=== PATIENT | female | born 1965 | race Caucasian/White ===

== ENCOUNTER 2022-08-29 05:23 | Inpatient (IN) | payer OTHER ==
--- OUTSIDE RECORDS SUMMARY | 2022-08-29 05:29 | XMS REPORT | Continuity of Care Document ---
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 of capsule 00:00: MOUTH [place] 00 THREE Medical TIMES A Branch DAY GABAPENTIN 2021-02 Yes [id number] TAKE ONE [facility] 300 mg 1-03 CAPSULE BY it[facility] of capsule 00:00: MOUTH [place] 00 THREE Medical TIMES A Branch DAY GABAPENTIN 2021-02 Yes [id number] TAKE ONE [facility] 300 mg 1-03 CAPSULE BY it[facility] of capsule 00:00: MOUTH [place] [address] THREE Medical TIMES A Branch DAY GABAPENTIN 2021-02 Yes [id number] TAKE ONE [facility] 300 mg 1-03 CAPSULE BY ity of capsule 00:00: MOUTH [place] [address] THREE Medical TIMES A Branch DAY GABAPENTIN 2021-02- No [id number] TAKE ONE [facility] 300 mg 1-03 01-03 CAPSULE BY [facility] of capsule 00:00: 00:00 MOUTH [place] 00 :00 THREE Medical TIMES A Branch DAY PRAVASTATIN 2021-02 Yes [id number] TAKE ONE [facility] 80 mg 0-19 TABLET BY it[facility] of tablet 00:00: MOUTH AT [address] PRAVASTATIN 2021-02 Yes [id number] TAKE ONE [facility] 80 mg 0-19 TABLET BY it[facility] of tablet 00:00: MOUTH AT [address] Branch PRAVASTATIN 2021-02 Yes [id number] TAKE ONE [facility] 80 mg 0-19 TABLET BY it[facility] of tablet 00:00: MOUTH AT [address] PRAVASTATIN 2021-02 Yes [id number] TAKE ONE [facility] 80 mg 0-19 TABLET BY ity of tablet 00:00: MOUTH AT [place] [facility] PRAVASTATIN 2021-02 Yes [id number] TAKE ONE [facility] 80 mg 0-19 TABLET BY it[facility] of tablet 00:00: MOUTH AT [address] PRAVASTATIN 2021-02 Yes [id number] TAKE ONE [facility] 80 mg 0-19 TABLET BY it[facility] of tablet 00:00: MOUTH AT [address] PRAVASTATIN 2021-023- No [id number] TAKE ONE [facility] 80 mg 0-19 01-17 TABLET BY ity of tablet 00:00: 00:00 MOUTH AT [place] 00 :00 [facility] Branch glimepiride 2021-0 Yes [id number] 4mg Take 1 [facility] 4 mg tablet 9-27 tablet by ity of 00:00: mouth in [place] [address] the Medical morning Branch and 1 tablet in the evening. glimepiride 2021-0 Yes [id number] 4mg Take 1 [facility] 4 mg tablet 9-27 tablet by ity of 00:00: mouth in [place] 00 the Medical morning Branch and 1 tablet in the evening. glimepiride 2-0 Yes [id number] 4mg Take 1 [facility] 4 mg tablet 9-27 tablet by ity of 00:00: mouth in [place] 00 the Medical morning Branch and 1 tablet in the evening. glimepiride 2-0 Yes [id number] 4mg Take 1 [facility] 4 mg tablet 9-27 tablet by ity of 00:00: mouth in [place] 00 the Medical morning Branch and 1 tablet in the evening. glimepiride 2021-0 Yes [id number] 4mg Take 1 [facility] 4 mg tablet 9-27 tablet by ity of 00:00: mouth in [place] 00 the Medical morning Branch and 1 tablet in the evening. glimepiride 2021-0 2022- No [id number] 4mg Take 1 [facility] 4 mg tablet 9-27 12-27 tablet by it y of 00:00: 00:00 mouth in [place] 00 :00 the Medical morning Branch and 1 tablet in the evening. GABAPENTIN 2021-0 Yes [id number] TAKE ONE [facility] 300 mg 9-07 CAPSULE BY ity of capsule 00:00: MOUTH [place] [address] THREE Medical TIMES A Branch DAY METHOCARBAM 2022-0 Yes [id number] TAKE ONE [facility] OL 500 mg 9-07 TABLET BY ity o f tablet 00:00: MOUTH [facility] TIMES A Medical DAY Branch NEEDED FOR PAIN LISINOPRIL 2021-0 Yes [id number] TAKE ONE [facility] 20 mg 9-07 TABLET BY ity of tablet 00:00: MOUTH [place] 00 DAILY Medical Branch LEVOTHYROXI 2022-0 Yes [id number] TAKE ONE [facility] NE 50 mcg 9-07 TABLET BY ity o f tablet 00:00: MOUTH [place] 00 EVERY Medical MORNING Branch GABAPENTIN 2022-0 Yes [id number] TAKE ONE [facility] 300 mg 9-07 CAPSULE BY ity of capsule 00:00: MOUTH [place] 00 THREE Medical TIMES A Branch DAY METHOCARBAM 2022-0 Yes [id number] TAKE ONE [facility] OL 500 mg 9-07 TABLET BY ity o f tablet 00:00: MOUTH FOUR [place] 00 TIMES A Medical DAY Branch NEEDED FOR PAIN LISINOPRIL 2022-0 Yes [id number] TAKE ONE [facility] 20 mg 9-07 TABLET BY ity of tablet 00:00: MOUTH [place] 00 DAILY Medical Branch LEVOTHYROXI 2022-0 Yes [id number] TAKE ONE [facility] NE 50 mcg 9-07 TABLET BY ity o f tablet 00:00: MOUTH [place] 00 EVERY Medical MORNING Branch GABAPENTIN 2022-0 Yes [id number] TAKE ONE [facility] 300 mg 9-07 CAPSULE BY ity of capsule 00:00: MOUTH [place] 00 THREE Medical TIMES A Branch DAY METHOCARBAM 2022-0 Yes [id number] TAKE ONE [facility] OL 500 mg 9-07 TABLET BY ity o f tablet 00:00: MOUTH [facility] TIMES A Medical DAY Branch NEEDED FOR PAIN LISINOPRIL 2022-0 Yes [id number] TAKE ONE [facility] 20 mg 9-07 TABLET BY ity of tablet 00:00: MOUTH [place] 00 DAILY Medical Branch LEVOTHYROXI 2022-0 Yes [id number] TAKE ONE [facility] NE 50 mcg 9-07 TABLET BY ity o f tablet 00:00: MOUTH [place] 00 EVERY Medical MORNING Branch GABAPENTIN 2022-0 Yes [id number] TAKE ONE [facility] 300 mg 9-07 CAPSULE BY ity of capsule 00:00: MOUTH [place] THREE Medical TIMES A Branch DAY METHOCARBAM 2022-0 Yes [id number] TAKE ONE [facility] OL 500 mg 9-07 TABLET BY ity o f tablet 00:00: MOUTH [facility] TIMES A Medical DAY Branch NEEDED FOR PAIN LISINOPRIL 2022-0 Yes [id number] TAKE ONE [facility] 20 mg 9-07 TABLET BY ity of tablet 00:00: MOUTH [place] 00 DAILY Medical Branch LEVOTHYROXI 2022-0 Yes [id number] TAKE ONE [facility] NE 50 mcg 9-07 TABLET BY ity o f tablet 00:00: MOUTH [place] 00 EVERY Medical MORNING Branch METHOCARBAM 2022-0 Yes [id number] TAKE ONE [facility] OL 500 mg 9-07 TABLET BY ity o f tablet 00:00: MOUTH [facility] TIMES A Medical DAY Branch NEEDED FOR PAIN LISINOPRIL 2022-0 Yes [id number] TAKE ONE [facility] 20 mg 9-07 TABLET BY ity of tablet 00:00: MOUTH [place] 00 DAILY Medical Branch LEVOTHYROXI 2022-0 Yes [id number] TAKE ONE [facility] NE 50 mcg 9-07 TABLET BY ity o f tablet 00:00: MOUTH [place] EVERY Medical MORNING Branch METHOCARBAM 2022-0 Yes [id number] TAKE ONE [facility] OL 500 mg 9-07 TABLET BY ity o f tablet 00:00: MOUTH [facility] 00 TIMES A Medical DAY Branch NEEDED FOR PAIN LISINOPRIL 2022-0 Yes [id number] TAKE ONE [facility] 20 mg 9-07 TABLET BY ity of tablet 00:00: MOUTH [place] 00 DAILY Medical Branch LEVOTHYROXI 2-0 Yes [id number] TAKE ONE [facility] NE 50 mcg 9-07 TABLET BY ity o f tablet 00:00: MOUTH [place] 00 EVERY Medical MORNING Branch METHOCARBAM 2022-0 Yes [id number] TAKE ONE [facility] OL 500 mg 9-07 TABLET BY ity o f tablet 00:00: MOUTH [facility] TIMES A Medical DAY Branch NEEDED FOR PAIN LISINOPRIL 2-0 Yes [id number] TAKE ONE [facility] 20 mg 9-07 TABLET BY ity of tablet 00:00: MOUTH [place] DAILY Medical Branch LEVOTHYROXI 2021-0 Yes [id number] TAKE ONE [facility] NE 50 mcg 9-07 TABLET BY ity o f tablet 00:00: MOUTH [place] EVERY Medical MORNING Branch METHOCARBAM 2022-0 Yes [id number] TAKE ONE [facility] OL 500 mg 9-07 TABLET BY ity o f tablet 00:00: MOUTH [facility] TIMES A Medical DAY Branch NEEDED FOR PAIN LISINOPRIL 2-0 Yes [id number] TAKE ONE [facility] 20 mg 9-07 TABLET BY ity of tablet 00:00: MOUTH [place] DAILY Medical Branch LEVOTHYROXI 2-0 Yes [id number] TAKE ONE [facility] NE 50 mcg 9-07 TABLET BY ity o f tablet 00:00: MOUTH [place] EVERY Medical MORNING Branch METHOCARBAM 2022-0 Yes [id number] TAKE ONE [facility] OL 500 mg 9-07 TABLET BY ity o f tablet 00:00: MOUTH [facility] TIMES A Medical DAY Branch NEEDED FOR PAIN LISINOPRIL 2-0 Yes [id number] TAKE ONE [facility] 20 mg 9-07 TABLET BY ity of tablet 00:00: MOUTH [place] 00 DAILY Medical Branch LEVOTHYROXI 2022-0 Yes [id number] TAKE ONE [facility] NE 50 mcg 9-07 TABLET BY ity o f tablet 00:00: MOUTH [place] EVERY Medical MORNING Branch LISINOPRIL 2022-0 Yes [id number] TAKE ONE [facility] 20 mg 9-07 TABLET BY ity of tablet 00:00: MOUTH [place] 00 DAILY Medical Branch LEVOTHYROXI 2022-0 Yes [id number] TAKE ONE [facility] NE 50 mcg 9-07 TABLET BY ity o f tablet 00:00: MOUTH [place] 00 EVERY Medical MORNING Branch LISINOPRIL 2021-0 Yes [id number] TAKE ONE [facility] 20 mg 9-07 TABLET BY ity of tablet 00:00: MOUTH [place] 00 DAILY Medical Branch LEVOTHYROXI 2021-0 Yes [id number] TAKE ONE [facility] NE 50 mcg 9-07 TABLET BY ity o f tablet 00:00: MOUTH [place] 00 EVERY Medical MORNING Branch LISINOPRIL 2021-0 2023- No [id number] TAKE ONE [facility] 20 mg -08 20- TABLET BY ity of tablet 00:00: 00:00 MOUTH [place] 00 :00 DAILY Medical Branch LEVOTHYROXI 2021-0 2022- No [id number] TAKE ONE [facility] NE 50 mcg 10-25- TABLET BY ity of tablet 00:00: 00:00 MOUTH [place] 00 :00 EVERY Medical MORNING Branch METHOCARBAM 2021-0 3- No [id number] TAKE ONE [facility] OL 500 mg 10-25- TABLET BY ity of tablet 00:00: 00:00 MOUTH [place] 00 :00 TIMES A Medical DAY Branch NEEDED FOR PAIN GABAPENTIN 2021-0 202- No [id number] TAKE ONE [facility] 300 mg -08 28- CAPSULE BY ity of capsule 00:00: 00:00 MOUTH [place] 00 :00 THREE Medical TIMES A Branch DAY GABAPENTIN 2021-0 Yes [id number] TAKE ONE [facility] 300 mg 6-17 CAPSULE BY ity of capsule 00:00: MOUTH [place] 00 THREE Medical TIMES A Branch DAY GABAPENTIN 2-0 Yes [id number] TAKE ONE [facility] 300 mg 6-17 CAPSULE BY ity of capsule 00:00: MOUTH [place] 00 THREE Medical TIMES A Branch DAY GABAPENTIN 2-0 2022- No [id number] TAKE ONE [facility] 300 mg 6-17 - CAPSULE BY ity of capsule 00:00: 00:00 MOUTH [place] 00 :00 THREE Medical TIMES A Branch DAY aspirin 81 2021-0 Yes [id number] 81mg Take 81 mg [facility] mg EC 5-19 by mouth ity of tablet 19:44: daily. [address] aspirin 81 2021-0 Yes [id number] 81mg Take 81 mg [facility] mg EC 5-19 by mouth ity of tablet 19:44: daily. [place] 16 Medical Branch aspirin 81 2021-0 Yes [id number] 81mg Take 81 mg [facility] mg EC 5-19 by mouth ity of tablet 19:44: daily. [address] aspirin 81 2021-0 Yes [id number] 81mg Take 81 mg [facility] mg EC 5-19 by mouth ity of tablet 19:44: daily. [address] aspirin 81 2021-0 Yes [id number] 81mg Take 81 mg [facility] mg EC 5-19 by mouth ity of tablet 19:44: daily. [address] aspirin 81 2021-0 Yes [id number] 81mg Take 81 mg [facility] mg EC 5-19 by mouth ity of tablet 19:44: daily. [address] aspirin 81 2021-0 Yes [id number] 81mg Take 81 mg [facility] mg EC 5-19 by mouth ity of tablet 19:44: daily. [address] aspirin 81 2021-0 Yes [id number] 81mg Take 81 mg [facility] mg EC 5-19 by mouth ity of tablet 19:44: daily. [address] aspirin 81 2021-0 Yes [id number] 81mg Take 81 mg [facility] mg EC 5-19 by mouth ity of tablet 19:44: daily. [address] aspirin 81 2021-0 Yes [id number] 81mg Take 81 mg [facility] mg EC 5-19 by mouth ity of tablet 19:44: daily. [address] aspirin 81 2021-0 Yes [id number] 81mg Take 81 mg [facility] mg EC 5-19 by mouth ity of tablet 19:44: daily. [address] aspirin 81 2021-0 Yes [id number] 81mg Take 81 mg [facility] mg EC 5-19 by mouth ity of tablet 19:44: daily. [address] aspirin 81 2021-0 Yes [id number] 81mg Take 81 mg [facility] mg EC 5-19 by mouth ity of tablet 19:44: daily. [address] aspirin 81 2021-0 Yes [id number] 81mg Take 81 mg [facility] mg EC 5-19 by mouth ity of tablet 19:44: daily. [address] aspirin 81 2021-0 Yes [id number] 81mg Take 81 mg [facility] mg EC 5-19 by mouth ity of tablet 19:44: daily. [address] aspirin 81 2021-0 Yes [id number] 81mg Take 81 mg [facility] mg EC 5-19 by mouth ity of tablet 19:44: daily. [address] aspirin 81 2-0 Yes [id number] 81mg Take 81 mg [facility] mg EC 5-19 by mouth ity of tablet 19:44: daily. [address] aspirin 81 2-0 Yes [id number] 81mg Take 81 mg [facility] mg EC 5-19 by mouth ity of tablet 19:44: daily. [address] aspirin 81 2021-0 Yes [id number] 81mg Take 81 mg [facility] mg EC 5-19 by mouth ity of tablet 19:44: daily. [address] aspirin 81 2021-0 Yes [id number] 81mg Take 81 mg [facility] mg EC 5-19 by mouth ity of tablet 19:44: daily. [address] aspirin 81 2-0 Yes [id number] 81mg Take 81 mg [facility] mg EC 5-19 by mouth ity of tablet 19:44: daily. [address] aspirin 81 2021-0 Yes [id number] 81mg Take 81 mg [facility] mg EC 5-19 by mouth ity of tablet 19:44: daily. [address] aspirin 81 2021-0 Yes [id number] 81mg Take 81 mg [facility] mg EC 5-19 by mouth ity of tablet 19:44: daily. [address] aspirin 81 2-0 Yes [id number] 81mg Take 81 mg [facility] mg EC 5-19 by mouth ity of tablet 19:44: daily. [address] hydroCHLORO 2-0 Yes [id number] 12.5mg Take 1 [facility] thiazide 5-19 capsule by ity o f 12.5 mg 00:00: mouth [place] capsule 00 daily. [facility] hydroCHLORO 2022-0 Yes [id number] 12.5mg Take 1 [facility] thiazide 5-19 capsule by ity o f 12.5 mg 00:00: mouth [place] capsule 00 daily. [facility] hydroCHLORO 2022-0 Yes [id number] 12.5mg Take 1 [facility] thiazide 5-19 capsule by ity o f 12.5 mg 00:00: mouth [place] capsule 00 daily. [facility] hydroCHLORO 2022-0 Yes [id number] 12.5mg Take 1 [facility] thiazide 5-19 capsule by ity o f 12.5 mg 00:00: mouth [place] capsule 00 daily. [facility] hydroCHLORO 2-0 Yes [id number] 12.5mg Take 1 [facility] thiazide 5-19 capsule by ity o f 12.5 mg 00:00: mouth [place] capsule 00 daily. Medical Branch hydroCHLORO 2-0 Yes [id number] 12.5mg Take 1 [facility] thiazide 5-19 capsule by ity o f 12.5 mg 00:00: mouth [place] capsule 00 daily. Medical Branch hydroCHLORO 2-0 Yes [id number] 12.5mg Take 1 [facility] thiazide 5-19 capsule by ity o f 12.5 mg 00:00: mouth [place] capsule 00 daily. Medical Branch hydroCHLORO 2-0 Yes [id number] 12.5mg Take 1 [facility] thiazide 5-19 capsule by ity o f 12.5 mg 00:00: mouth [place] capsule 00 daily. Medical Branch hydroCHLORO 2-0 Yes [id number] 12.5mg Take 1 [facility] thiazide 5-19 capsule by ity o f 12.5 mg 00:00: mouth [place] capsule 00 daily. Medical Branch hydroCHLORO 2-0 Yes [id number] 12.5mg Take 1 [facility] thiazide 5-19 capsule by ity o f 12.5 mg 00:00: mouth [place] capsule 00 daily. Medical Branch hydroCHLORO 2-0 Yes [id number] 12.5mg Take 1 [facility] thiazide 5-19 capsule by ity o f 12.5 mg 00:00: mouth [place] capsule 00 daily. Medical Branch hydroCHLORO 2-0 Yes [id number] 12.5mg Take 1 [facility] thiazide 5-19 capsule by ity o f 12.5 mg 00:00: mouth [place] capsule 00 daily. Medical Branch hydroCHLORO 2-0 Yes [id number] 12.5mg Take 1 [facility] thiazide 5-19 capsule by ity o f 12.5 mg 00:00: mouth [place] capsule 00 daily. Medical Branch hydroCHLORO 2-0 Yes [id number] 12.5mg Take 1 [facility] thiazide 5-19 capsule by ity o f 12.5 mg 00:00: mouth [place] capsule 00 daily. Medical Branch hydroCHLORO 2-0 Yes [id number] 12.5mg Take 1 [facility] thiazide 5-19 capsule by ity o f 12.5 mg 00:00: mouth [place] capsule 00 daily. Medical Branch hydroCHLORO 2-0 Yes [id number] 12.5mg Take 1 [facility] thiazide 5-19 capsule by ity o f 12.5 mg 00:00: mouth [place] capsule 00 daily. Medical Branch hydroCHLORO 2021-0 Yes [id number] 12.5mg Take 1 [facility] thiazide 5-19 capsule by ity o f 12.5 mg 00:00: mouth [place] capsule 00 daily. Medical Branch hydroCHLORO 2021-0 Yes [id number] 12.5mg Take 1 [facility] thiazide 5-19 capsule by ity o f 12.5 mg 00:00: mouth [place] capsule 00 daily. Medical Branch hydroCHLORO 2021-0 Yes [id number] 12.5mg Take 1 [facility] thiazide 5-19 capsule by ity o f 12.5 mg 00:00: mouth [place] capsule 00 daily. Medical Branch hydroCHLORO 2021-0 Yes [id number] 12.5mg Take 1 [facility] thiazide 5-19 capsule by ity o f 12.5 mg 00:00: mouth [place] capsule 00 daily. Medical Branch hydroCHLORO 2021-0 Yes [id number] 12.5mg Take 1 [facility] thiazide 5-19 capsule by ity o f 12.5 mg 00:00: mouth [place] capsule 00 daily. Medical Branch hydroCHLORO 2021-0 Yes [id number] 12.5mg Take 1 [facility] thiazide 5-19 capsule by ity o f 12.5 mg 00:00: mouth [place] capsule 00 daily. Medical Branch hydroCHLORO 2021-0 Yes [id number] 12.5mg Take 1 [facility] thiazide 5-19 capsule by ity o f 12.5 mg 00:00: mouth [place] capsule 00 daily. Medical Branch hydroCHLORO 2021-0 Yes [id number] 12.5mg Take 1 [facility] thiazide 5-19 capsule by ity o f 12.5 mg 00:00: mouth [place] capsule 00 daily. Medical Branch HYDROcodone Yes 4647 1{tbl} Take 1 Un [place] -acetaminop 5-11 tablet by ity of hen 10-325 00:00: mouth [place] mg tablet 00 every 6 Medical (six) Branch hours as needed for Pain (scale 7-10). Indication s: acute pain HYDROcodone Yes 4647 1{tbl} Take 1 [place] -acetaminop 5-11 tablet by ity of hen 10-325 00:00: mouth [place] mg tablet 00 every 6 Medical (six) Branch hours as needed for Pain (scale 7-10). Indication s: acute pain HYDROcodone 2022-0 Yes 4647 1{tbl} Take 1 [place] -acetaminop 5-11 tablet by ity of hen 10-325 00:00: mouth [place] mg tablet 00 every 6 Medical (six) Branch hours as needed for Pain (scale 7-10). Indication s: acute pain HYDROcodone 2022-0 Yes 4647 1{tbl} Take 1 [place] -acetaminop 5-11 tablet by ity of hen 10-325 00:00: mouth [place] mg tablet 00 every 6 Medical (six) Branch hours as needed for Pain (scale 7-10). Indication s: acute pain HYDROcodone 2022-0 Yes 4647 1{tbl} Take 1 [place] -acetaminop 5-11 tablet by ity of hen 10-325 00:00: mouth [place] mg tablet 00 every 6 Medical (six) Branch hours as needed for Pain (scale 7-10). Indication s: acute pain HYDROcodone 2-0 Yes 4647 1{tbl} Take 1 [place] -acetaminop 5-11 tablet by ity of hen 10-325 00:00: mouth [place] mg tablet 00 every 6 Medical (six) Branch hours as needed for Pain (scale 7-10). Indication s: acute pain HYDROcodone 2-0 Yes 4647 1{tbl} Take 1 [place] -acetaminop 5-11 tablet by ity of hen 10-325 00:00: mouth [place] mg tablet 00 every 6 Medical (six) Branch hours as needed for Pain (scale 7-10). Indication s: acute pain HYDROcodone 2022-0 Yes 4647 1{tbl} Take 1 [place] -acetaminop 5-11 tablet by ity of hen 10-325 00:00: mouth [place] mg tablet 00 every 6 Medical (six) Branch hours as needed for Pain (scale 7-10). Indication s: acute pain HYDROcodone 2022-0 Yes 4647 1{tbl} Take 1 [place] -acetaminop 5-11 tablet by ity of hen 10-325 00:00: mouth [place] mg tablet 00 every 6 Medical (six) Branch hours as needed for Pain (scale 7-10). Indication s: acute pain HYDROcodone 2022-0 Yes 4647 1{tbl} Take 1 [place] -acetaminop 5-11 tablet by ity of hen 10-325 00:00: mouth [place] mg tablet 00 every 6 Medical (six) Branch hours as needed for Pain (scale 7-10). Indication s: acute pain HYDROcodone 2022-0 Yes 4647 1{tbl} Take 1 [place] -acetaminop 5-11 tablet by ity of hen 10-325 00:00: mouth [place] mg tablet 00 every 6 Medical (six) Branch hours as needed for Pain (scale 7-10). Indication s: acute pain HYDROcodone 2-0 Yes 4647 1{tbl} Take 1 [place] -acetaminop 5-11 tablet by ity of hen 10-325 00:00: mouth [place] mg tablet 00 every 6 Medical (six) Branch hours as needed for Pain (scale 7-10). Indication s: acute pain HYDROcodone 2-0 Yes 4647 1{tbl} Take 1 [place] -acetaminop 5-11 tablet by ity of hen 10-325 00:00: mouth [place] mg tablet 00 every 6 Medical (six) Branch hours as needed for Pain (scale 7-10). Indication s: acute pain HYDROcodone 2-0 Yes 4647 1{tbl} Take 1 [place] -acetaminop 5-11 tablet by ity of hen 10-325 00:00: mouth [place] mg tablet 00 every 6 Medical (six) Branch hours as needed for Pain (scale 7-10). Indication s: acute pain HYDROcodone 2-0 Yes 4647 1{tbl} Take 1 [place] -acetaminop 5-11 tablet by ity of hen 10-325 00:00: mouth [place] mg tablet 00 every 6 Medical (six) Branch hours as needed for Pain (scale 7-10). Indication s: acute pain HYDROcodone 2-0 Yes 4647 1{tbl} Take 1 [place] -acetaminop 5-11 tablet by ity of hen 10-325 00:00: mouth [place] mg tablet 00 every 6 Medical (six) Branch hours as needed for Pain (scale 7-10). Indication s: acute pain HYDROcodone 2-0 Yes 4647 1{tbl} Take 1 [place] -acetaminop 5-11 tablet by ity of hen 10-325 00:00: mouth [place] mg tablet 00 every 6 Medical (six) Branch hours as needed for Pain (scale 7-10). Indication s: acute pain HYDROcodone 2022-0 Yes 4647 1{tbl} Take 1 [place] -acetaminop 5-11 tablet by ity of hen 10-325 00:00: mouth [place] mg tablet 00 every 6 Medical (six) Branch hours as needed for Pain (scale 7-10). Indication s: acute pain HYDROcodone 2022-0 Yes 4647 1{tbl} Take 1 [place] -acetaminop 5-11 tablet by ity of hen 10-325 00:00: mouth [place] mg tablet 00 every 6 Medical (six) Branch hours as needed for Pain (scale 7-10). Indication s: acute pain HYDROcodone 2-0 Yes 4647 1{tbl} Take 1 [place] -acetaminop 5-11 tablet by ity of hen 10-325 00:00: mouth [place] mg tablet 00 every 6 Medical (six) Branch hours as needed for Pain (scale 7-10). Indication s: acute pain HYDROcodone 2-0 Yes 4647 1{tbl} Take 1 [place] -acetaminop 5-11 tablet by ity of hen 10-325 00:00: mouth [place] mg tablet 00 every 6 Medical (six) Branch hours as needed for Pain (scale 7-10). Indication s: acute pain HYDROcodone 2-0 Yes 4647 1{tbl} Take 1 [place] -acetaminop 5-11 tablet by ity of hen 10-325 00:00: mouth [place] mg tablet 00 every 6 Medical (six) Branch hours as needed for Pain (scale 7-10). Indication s: acute pain HYDROcodone 2-0 Yes 4647 1{tbl} Take 1 [place] -acetaminop 5-11 tablet by ity of hen 10-325 00:00: mouth [place] mg tablet 00 every 6 Medical (six) Branch hours as needed for Pain (scale 7-10). Indication s: acute pain HYDROcodone 2-0 Yes 4647 1{tbl} Take 1 [place] -acetaminop 5-11 tablet by ity of hen 10-325 00:00: mouth [place] mg tablet 00 every 6 Medical (six) Branch hours as needed for Pain (scale 7-10). Indication s: acute pain METHOCARBAM 2021-0 Yes [id number] TAKE ONE [facility] OL 500 mg 4-25 TABLET BY ity o f tablet 00:00: MOUTH FOUR 00 TIMES A Medical DAY Branch NEEDED FOR PAIN METHOCARBAM 2021-0 Yes [id number] TAKE ONE [facility] OL 500 mg 4-25 TABLET BY ity o f tablet 00:00: MOUTH FOUR [place] 00 TIMES A Medical DAY Branch NEEDED FOR PAIN METHOCARBAM 2021-0 2022- No [id number] TAKE ONE [facility] OL 500 mg 4-25 09-07 TABLET BY ity of tablet 00:00: 00:[place]TH [place] :[place] TIMES A Medical DAY Branch NEEDED FOR PAIN ibuprofen 2021-0 Yes [id number] 600mg Take 1 [facility] 600 mg 4-16 tablet by ity of tablet 00:00: mouth 00 every 6 Medical (six) Branch hours as needed for Pain (scale 4-6). ibuprofen 2021-0 Yes [id number] 600mg Take 1 [facility] 600 mg 4-16 tablet by ity of tablet 00:00: mouth [place] 00 every 6 Medical (six) Branch hours as needed for Pain (scale 4-6). ibuprofen 2021-0 Yes [id number] 600mg Take 1 [facility] 600 mg 4-16 tablet by ity of tablet 00:00: mouth 00 every 6 Medical (six) Branch hours as needed for Pain (scale 4-6). ibuprofen 2021-0 Yes [id number] 600mg Take 1 [facility] 600 mg 4-16 tablet by ity of tablet 00:00: mouth [place] 00 every 6 Medical (six) Branch hours as needed for Pain (scale 4-6). ibuprofen 2021-0 Yes [id number] 600mg Take 1 [facility] 600 mg 4-16 tablet by ity of tablet 00:00: mouth [place] 00 every 6 Medical (six) Branch hours as needed for Pain (scale 4-6). ibuprofen 2021-0 Yes [id number] 600mg Take 1 [facility] 600 mg 4-16 tablet by ity of tablet 00:00: mouth [place] 00 every 6 Medical (six) Branch hours as needed for Pain (scale 4-6). ibuprofen 2021-0 Yes [id number] 600mg Take 1 [facility] 600 mg 4-16 tablet by ity of tablet 00:00: mouth [place] 00 every 6 Medical (six) Branch hours as needed for Pain (scale 4-6). ibuprofen 2022-0 Yes [id number] 600mg Take 1 [facility] 600 mg 4-16 tablet by ity of tablet 00:00: mouth [place] 00 every 6 Medical (six) Branch hours as needed for Pain (scale 4-6). ibuprofen 2022-0 Yes [id number] 600mg Take 1 [facility] 600 mg 4-16 tablet by ity of tablet 00:00: mouth [place] 00 every 6 Medical (six) Branch hours as needed for Pain (scale 4-6). ibuprofen 2022-0 Yes [id number] 600mg Take 1 [facility] 600 mg 4-16 tablet by ity of tablet 00:00: mouth [place] 00 every 6 Medical (six) Branch hours as needed for Pain (scale 4-6). ibuprofen 2022-0 Yes [id number] 600mg Take 1 [facility] 600 mg 4-16 tablet by ity of tablet 00:00: mouth [place] 00 every 6 Medical (six) Branch hours as needed for Pain (scale 4-6). ibuprofen 2022-0 Yes [id number] 600mg Take 1 [facility] 600 mg 4-16 tablet by ity of tablet 00:00: mouth [place] 00 every 6 Medical (six) Branch hours as needed for Pain (scale 4-6). ibuprofen 2022-0 Yes [id number] 600mg Take 1 [facility] 600 mg 4-16 tablet by ity of tablet 00:00: mouth [place] 00 every 6 Medical (six) Branch hours as needed for Pain (scale 4-6). ibuprofen 2022-0 Yes [id number] 600mg Take 1 [facility] 600 mg 4-16 tablet by ity of tablet 00:00: mouth [place] 00 every 6 Medical (six) Branch hours as needed for Pain (scale 4-6). ibuprofen 2022-0 Yes [id number] 600mg Take 1 [facility] 600 mg 4-16 tablet by ity of tablet 00:00: mouth [place] 00 every 6 Medical (six) Branch hours as needed for Pain (scale 4-6). ibuprofen 2022-0 Yes [id number] 600mg Take 1 [facility] 600 mg 4-16 tablet by [facility] tablet 00:00: mouth [place] 00 every 6 Medical (six) Branch hours as needed for Pain (scale 4-6). ibuprofen 2022-0 Yes [id number] 600mg Take 1 [facility] 600 mg 4-16 tablet by [facility] of tablet 00:00: mouth [place] 00 every 6 Medical (six) Branch hours as needed for Pain (scale 4-6). ibuprofen 2022-0 Yes [id number] 600mg Take 1 [facility] 600 mg 4-16 tablet by [facility] of tablet 00:00: mouth [place] 00 every 6 Medical (six) Branch hours as needed for Pain (scale 4-6). ibuprofen 2022-0 Yes [id number] 600mg Take 1 [facility] 600 mg 4-16 tablet by [facility] of tablet 00:00: mouth [place] 00 every 6 Medical (six) Branch hours as needed for Pain (scale 4-6). ibuprofen 2022-0 Yes [id number] 600mg Take 1 [facility] 600 mg 4-16 tablet by ity of tablet 00:00: mouth [place] 00 every 6 Medical (six) Branch hours as needed for Pain (scale 4-6). ibuprofen 2022-0 Yes [id number] 600mg Take 1 [facility] 600 mg 4-16 tablet by [facility] of tablet 00:00: mouth [place] 00 every 6 Medical (six) Branch hours as needed for Pain (scale 4-6). ibuprofen 2-0 Yes [id number] 600mg Take 1 [facility] 600 mg 4-16 tablet by [facility] of tablet 00:00: mouth [place] 00 every 6 Medical (six) Branch hours as needed for Pain (scale 4-6). ibuprofen 2022-0 Yes [id number] 600mg Take 1 [facility] 600 mg 4-16 tablet by it[facility] of tablet 00:00: mouth [place] 00 every 6 Medical (six) Branch hours as needed for Pain (scale 4-6). ibuprofen 2022-0 Yes [id number] 600mg Take 1 [facility] 600 mg 4-16 tablet by it[facility] of tablet 00:00: mouth [place] 00 every 6 Medical (six) Branch hours as needed for Pain (scale 4-6). methylPREDN 2022-0 Yes [id number] Take by [facility] ISolone 4-06 mouth ity of (MEDROL, 00:00: SEE-INSTRU [place]NNIE,) 4 mg 00 CTIONS. Medica l tablets follow Branch package directions methylPREDN 2022-0 Yes [id number] Take by [facility] ISolone 4-06 mouth ity of (MEDROL, 00:00: SEE-INSTRU [place],) 4 mg 00 CTIONS. Medica l tablets follow Branch package directions methylPREDN 2022-0 Yes [id number] Take by [facility] ISolone 4-06 mouth ity of (MEDROL, 00:00: SEE-INSTRU [place],) 4 mg 00 CTIONS. Medica l tablets follow Branch package directions methylPREDN 2022-0 Yes [id number] Take by [facility] ISolone 4-06 mouth ity of (MEDROL, 00:00: SEE-INSTRU [place],) 4 mg 00 CTIONS. Medica l tablets follow Branch package directions methylPREDN 2022-0 Yes [id number] Take by [facility] ISolone 4-06 mouth ity of (MEDROL, 00:00: SEE-INSTRU [place],) 4 mg 00 CTIONS. Medica l tablets follow Branch package directions methylPREDN 2022-0 Yes [id number] Take by [facility] ISolone 4-06 mouth ity of (MEDROL, 00:00: SEE-INSTRU [place],) 4 mg 00 CTIONS. Medica l tablets follow Branch package directions methylPREDN 2022-0 Yes [id number] Take by [facility] ISolone 4-06 mouth ity of (MEDROL, 00:00: SEE-INSTRU [place],) 4 mg 00 CTIONS. Medica l tablets follow Branch package directions methylPREDN 2022-0 Yes [id number] Take by [facility] ISolone 4-06 mouth ity of (MEDROL, 00:00: SEE-INSTRU [place],) 4 mg 00 CTIONS. Medica l tablets follow Branch package directions methylPREDN 2022-0 Yes [id number] Take by [facility] ISolone 4-06 mouth ity of (MEDROL, 00:00: SEE-INSTRU [place],) 4 mg 00 CTIONS. Medica l tablets follow Branch package directions methylPREDN 2022-0 Yes [id number] Take by [facility] ISolone 4-06 mouth ity of (MEDROL, 00:00: SEE-INSTRU [place],) 4 mg 00 CTIONS. Medica l tablets follow Branch package directions methylPREDN 2022-0 Yes [id number] Take by [facility] ISolone 4-06 mouth ity of (MEDROL, 00:00: SEE-INSTRU [place],) 4 mg 00 CTIONS. Medica l tablets follow Branch package directions methylPREDN 2022-0 Yes [id number] Take by [facility] ISolone -06 mouth ity of (MEDROL, 00:00: SEE-INSTRU [place],) 4 mg 00 CTIONS. Medica l tablets follow Branch package directions methylPREDN 2022-0 Yes [id number] Take by [facility] ISolone 4-06 mouth ity of (MEDROL, 00:00: SEE-INSTRU [place],) 4 mg 00 CTIONS. Medica l tablets follow Branch package directions methylPREDN 2022-0 Yes [id number] Take by [facility] ISolone 4-06 mouth ity of (MEDROL, 00:00: SEE-INSTRU [place],) 4 mg 00 CTIONS. Medica l tablets follow Branch package directions methylPREDN 2022-0 Yes [id number] Take by [facility] ISolone 4-06 mouth ity of (MEDROL, 00:00: SEE-INSTRU [place],) 4 mg 00 CTIONS. Medica l tablets follow Branch package directions methylPREDN 2022-0 Yes [id number] Take by [facility] ISolone 4-06 mouth ity of (MEDROL, 00:00: SEE-INSTRU [place],) 4 mg 00 CTIONS. Medica l tablets follow Branch package directions methylPREDN 2022-0 Yes [id number] Take by [facility] ISolone -06 mouth ity of (MEDROL, 00:00: SEE-INSTRU [place],) 4 mg 00 CTIONS. Medica l tablets follow Branch package directions methylPREDN 2022-0 Yes [id number] Take by [facility] ISolone 4-06 mouth ity of (MEDROL, 00:00: SEE-INSTRU [place],) 4 mg 00 CTIONS. Medica l tablets follow Branch package directions methylPREDN 2022-0 Yes [id number] Take by [facility] ISolone 4-06 mouth ity of (MEDROL, 00:00: SEE-INSTRU [place],) 4 mg 00 CTIONS. Medica l tablets follow Branch package directions methylPREDN 2022-0 Yes [id number] Take by [facility] ISolone 4-06 mouth ity of (MEDROL, 00:00: SEE-INSTRU [place],) 4 mg 00 CTIONS. Medica l tablets follow Branch package directions methylPREDN 2022-0 Yes [id number] Take by [facility] ISolone 4-06 mouth ity of (MEDROL, 00:00: SEE-INSTRU [place],) 4 mg 00 CTIONS. Medica l tablets follow Branch package directions methylPREDN 0 Yes [id number] Take by [facility] ISolone 4-06 mouth ity of (MEDROL, 00:00: SEE-INSTRU [place],) 4 mg 00 CTIONS. Medica l tablets follow Branch package directions methylPREDN 0 Yes [id number] Take by [facility] ISolone 4-06 mouth ity of (MEDROL, 00:00: SEE-INSTRU [place],) 4 mg 00 CTIONS. Medica l tablets follow Branch package directions methylPREDN Yes [id number] Take by [facility] ISolone 4-06 mouth ity of (MEDROL, 00:00: SEE-INSTRU [place],) 4 mg 00 CTIONS. Medica l tablets follow Branch package directions pravastatin Yes [id number] 80mg Take 1 [facility] 80 mg 2-14 tablet by ity of tablet 00:00: mouth at [place] 00 bedtime. Medical Branch metFORMIN Yes [id number] 1000mg Take 1 [facility] 1,000 mg 2-14 tablet by ity of tablet 00:00: mouth 2 00 (two) Medical times Branch daily. lisinopriL Yes [id number] 20mg Take 1 [facility] 20 mg 2-14 tablet by ity of tablet 00:00: mouth [place] 00 daily. Medical Branch levothyroxi Yes [id number] 50ug Take 1 [facility] ne 50 mcg 2-14 tablet by ity o f tablet 00:00: mouth [place] 00 every Medical morning. Branch glimepiride Yes [id number] 4mg Take 1 [facility] 4 mg tablet 2-14 tablet by ity of 00:00: mouth 2 [place] 00 (two) Medical times Branch daily. citalopram Yes [id number] 40mg Take 1 [facility] nivers 40 mg 2-14 tablet by ity of tablet 00:00: mouth [place] 00 daily. Medical Branch ALPRAZolam Yes [id number] TAKE ONE [facility] 1 mg tablet 2-14 TABLET BY ity of 00:00: MOUTH [place] 00 THREE Medical TIMES A Branch DAY NEEDED FOR ANXIETY amoxicillin 2022-0 Yes [id number] 1{tbl} Take 1 [facility] -clavulanat 2-14 tablet by ity of e 00:00: mouth 2 (AUGMENTIN) 00 (two) Medical 875-125 mg times Branch per tablet daily. pravastatin 0 Yes [id number] 80mg Take 1 [facility] 80 mg 2-14 tablet by ity of tablet 00:00: mouth at [place] 00 bedtime. Medical Branch metFORMIN Yes [id number] 1000mg Take 1 [facility] 1,000 mg 2-14 tablet by ity of tablet 00:00: mouth 2 [place] 00 (two) Medical times Branch daily. lisinopriL Yes [id number] 20mg Take 1 [facility] nivers 20 mg 2-14 tablet by ity of tablet 00:00: mouth [place] 00 daily. Medical Branch levothyroxi Yes [id number] 50ug Take 1 [facility] ne 50 mcg 2-14 tablet by ity o f tablet 00:00: mouth 00 every Medical morning. Branch glimepiride Yes [id number] 4mg Take 1 [facility] 4 mg tablet 2-14 tablet by ity of 00:00: mouth 2 (two) Medical times Branch daily. citalopram Yes [id number] 40mg Take 1 [facility] nivers 40 mg 2-14 tablet by ity of tablet 00:00: mouth [place] 00 daily. Medical Branch ALPRAZolam Yes [id number] TAKE ONE [facility] 1 mg tablet 2-14 TABLET BY ity of 00:00: MOUTH [place] 00 THREE Medical TIMES A Branch DAY NEEDED FOR ANXIETY amoxicillin 0 Yes [id number] 1{tbl} Take 1 [facility] -clavulanat 2-14 tablet by ity of e 00:00: mouth 2 [place] (AUGMENTIN) 00 (two) Medical 875-125 mg times Branch per tablet daily. pravastatin 0 Yes [id number] 80mg Take 1 [facility] 80 mg 2-14 tablet by ity of tablet 00:00: mouth at [place] 00 bedtime. Medical Branch metFORMIN 0 Yes [id number] 1000mg Take 1 [facility] 1,000 mg 2-14 tablet by ity of tablet 00:00: mouth 2 [place] 00 (two) Medical times Branch daily. glimepiride 0 Yes [id number] 4mg Take 1 [facility] 4 mg tablet 2-14 tablet by ity of 00:00: mouth 2 00 (two) Medical times Branch daily. citalopram 2021-0 Yes [id number] 40mg Take 1 [facility] nivers 40 mg 2-14 tablet by ity of tablet 00:00: mouth [place] 00 daily. Medical Branch ALPRAZolam 0 Yes [id number] TAKE ONE [facility] 1 mg tablet 2-14 TABLET BY ity of 00:00: MOUTH [place] 00 THREE Medical TIMES A Branch DAY NEEDED FOR ANXIETY amoxicillin 2021-0 Yes [id number] 1{tbl} Take 1 [facility] -clavulanat 2-14 tablet by ity of e 00:00: mouth 2 (AUGMENTIN) 00 (two) Medical 875-125 mg times Branch per tablet daily. pravastatin 2021-0 Yes [id number] 80mg Take 1 [facility] 80 mg 2-14 tablet by ity of tablet 00:00: mouth at [place] 00 bedtime. Medical Branch metFORMIN 0 Yes [id number] 1000mg Take 1 [facility] 1,000 mg 2-14 tablet by ity of tablet 00:00: mouth 2 (two) Medical times Branch daily. citalopram Yes [id number] 40mg Take 1 U nivers 40 mg 2-14 tablet by ity of tablet 00:00: mouth [place] 00 daily. Medical Branch ALPRAZolam 0 Yes [id number] TAKE ONE [facility] 1 mg tablet 2-14 TABLET BY ity of 00:00: MOUTH [place] 00 THREE Medical TIMES A Branch DAY NEEDED FOR ANXIETY amoxicillin 2021-0 Yes [id number] 1{tbl} Take 1 [facility] -clavulanat 2-14 tablet by ity of e 00:00: mouth 2 [place] (AUGMENTIN) 00 (two) Medical 875-125 mg times Branch per tablet daily. pravastatin 2021-0 Yes [id number] 80mg Take 1 [facility] 80 mg 2-14 tablet by ity of tablet 00:00: mouth at [place] 00 bedtime. Medical Branch metFORMIN 2021-0 Yes [id number] 1000mg Take 1 [facility] 1,000 mg 2-14 tablet by ity of tablet 00:00: mouth 2 00 (two) Medical times Branch daily. citalopram 2021-0 Yes [id number] 40mg Take 1 [facility] nivers 40 mg 2-14 tablet by ity of tablet 00:00: mouth [place] 00 daily. Medical Branch ALPRAZolam Yes [id number] TAKE ONE [facility] 1 mg tablet 2-14 TABLET BY ity of 00:00: MOUTH [place] 00 THREE Medical TIMES A Branch DAY NEEDED FOR ANXIETY amoxicillin Yes [id number] 1{tbl} Take 1 [facility] -clavulanat 2-14 tablet by ity of e 00:00: mouth 2 [place] (AUGMENTIN) 00 (two) Medical 875-125 mg times Branch per tablet daily. metFORMIN Yes [id number] 1000mg Take 1 [facility] 1,000 mg 2-14 tablet by ity of tablet 00:00: mouth 2 [place] 00 (two) Medical times Branch daily. citalopram Yes [id number] 40mg Take 1 [facility] nivers 40 mg 2-14 tablet by ity of tablet 00:00: mouth [place] 00 daily. Medical Branch ALPRAZolam Yes [id number] TAKE ONE [facility] 1 mg tablet 2-14 TABLET BY ity of 00:00: MOUTH [place] 00 THREE Medical TIMES A Branch DAY NEEDED FOR ANXIETY amoxicillin Yes [id number] 1{tbl} Take 1 [facility] -clavulanat 2-14 tablet by ity of e 00:00: mouth 2 (AUGMENTIN) 00 (two) Medical 875-125 mg times Branch per tablet daily. metFORMIN Yes [id number] 1000mg Take 1 [facility] 1,000 mg 2-14 tablet by ity of tablet 00:00: mouth 2 [place] 00 (two) Medical times Branch daily. citalopram Yes [id number] 40mg Take 1 [facility] nivers 40 mg 2-14 tablet by ity of tablet 00:00: mouth [place] 00 daily. Medical Branch ALPRAZolam Yes [id number] TAKE ONE [facility] 1 mg tablet 2-14 TABLET BY ity of 00:00: MOUTH [place] 00 THREE Medical TIMES A Branch DAY NEEDED FOR ANXIETY amoxicillin Yes [id number] 1{tbl} Take 1 [facility] -clavulanat 2-14 tablet by ity of e 00:00: mouth 2 [place] (AUGMENTIN) 00 (two) Medical 875-125 mg times Branch per tablet daily. citalopram Yes [id number] 40mg Take 1 U nivers 40 mg 2-14 tablet by ity of tablet 00:00: mouth [place] 00 daily. Medical Branch ALPRAZolam Yes [id number] TAKE ONE [facility] 1 mg tablet 2-14 TABLET BY ity of 00:00: MOUTH [place] 00 THREE Medical TIMES A Branch DAY NEEDED FOR ANXIETY amoxicillin Yes [id number] 1{tbl} Take 1 [facility] -clavulanat 2-14 tablet by ity of e 00:00: mouth 2 [place] (AUGMENTIN) 00 (two) Medical 875-125 mg times Branch per tablet daily. citalopram Yes [id number] 40mg Take 1 U nivers 40 mg 2-14 tablet by ity of tablet 00:00: mouth [place] 00 daily. Medical Branch ALPRAZolam Yes [id number] TAKE ONE [facility] 1 mg tablet 2-14 TABLET BY ity of 00:00: MOUTH [place] 00 THREE Medical TIMES A Branch DAY NEEDED FOR ANXIETY amoxicillin Yes [id number] 1{tbl} Take 1 [facility] -clavulanat 2-14 tablet by ity of e 00:00: mouth 2 [place] (AUGMENTIN) 00 (two) Medical 875-125 mg times Branch per tablet daily. citalopram Yes [id number] 40mg Take 1 U nivers 40 mg 2-14 tablet by ity of tablet 00:00: mouth [place] 00 daily. Medical Branch ALPRAZolam Yes [id number] TAKE ONE [facility] 1 mg tablet 2-14 TABLET BY ity of 00:00: MOUTH [place] 00 THREE Medical TIMES A Branch DAY NEEDED FOR ANXIETY amoxicillin Yes [id number] 1{tbl} Take 1 [facility] -clavulanat 2-14 tablet by ity of e 00:00: mouth 2 [place] (AUGMENTIN) 00 (two) Medical 875-125 mg times Branch per tablet daily. citalopram Yes [id number] 40mg Take 1 U nivers 40 mg 2-14 tablet by ity of tablet 00:00: mouth [place] 00 daily. Medical Branch ALPRAZolam Yes [id number] TAKE ONE [facility] 1 mg tablet 2-14 TABLET BY ity of 00:00: MOUTH [place] 00 THREE Medical TIMES A Branch DAY NEEDED FOR ANXIETY amoxicillin Yes [id number] 1{tbl} Take 1 [facility] -clavulanat 2-14 tablet by ity of e 00:00: mouth 2 [place] (AUGMENTIN) 00 (two) Medical 875-125 mg times Branch per tablet daily. citalopram Yes [id number] 40mg Take 1 U nivers 40 mg 2-14 tablet by ity of tablet 00:00: mouth [place] 00 daily. Medical Branch ALPRAZolam Yes [id number] TAKE ONE [facility] 1 mg tablet 2-14 TABLET BY ity of 00:00: MOUTH [place] 00 THREE Medical TIMES A Branch DAY NEEDED FOR ANXIETY amoxicillin Yes [id number] 1{tbl} Take 1 [facility] -clavulanat 2-14 tablet by ity of e 00:00: mouth 2 [place] (AUGMENTIN) 00 (two) Medical 875-125 mg times Branch per tablet daily. citalopram Yes [id number] 40mg Take 1 U nivers 40 mg 2-14 tablet by ity of tablet 00:00: mouth [place] 00 daily. Medical Branch ALPRAZolam Yes [id number] TAKE ONE [facility] 1 mg tablet 2-14 TABLET BY ity of 00:00: MOUTH [place] 00 THREE Medical TIMES A Branch DAY NEEDED FOR ANXIETY amoxicillin Yes [id number] 1{tbl} Take 1 [facility] -clavulanat 2-14 tablet by ity of e 00:00: mouth 2 [place] (AUGMENTIN) 00 (two) Medical 875-125 mg times Branch per tablet daily. citalopram Yes [id number] 40mg Take 1 U nivers 40 mg 2-14 tablet by ity of tablet 00:00: mouth [place] 00 daily. Medical Branch ALPRAZolam Yes [id number] TAKE ONE [facility] 1 mg tablet 2-14 TABLET BY ity of 00:00: MOUTH [place] 00 THREE Medical TIMES A Branch DAY NEEDED FOR ANXIETY amoxicillin 0 Yes [id number] 1{tbl} Take 1 [facility] -clavulanat 2-14 tablet by ity of e 00:00: mouth 2 [place] (AUGMENTIN) 00 (two) Medical 875-125 mg times Branch per tablet daily. citalopram Yes [id number] 40mg Take 1 U nivers 40 mg 2-14 tablet by ity of tablet 00:00: mouth [place] 00 daily. Medical Branch ALPRAZolam Yes [id number] TAKE ONE [facility] 1 mg tablet 2-14 TABLET BY ity of 00:00: MOUTH [place] 00 THREE Medical TIMES A Branch DAY NEEDED FOR ANXIETY amoxicillin Yes [id number] 1{tbl} Take 1 [facility] -clavulanat 2-14 tablet by ity of e 00:00: mouth 2 [place] (AUGMENTIN) 00 (two) Medical 875-125 mg times Branch per tablet daily. citalopram Yes [id number] 40mg Take 1 U nivers 40 mg 2-14 tablet by ity of tablet 00:00: mouth [place] 00 daily. Medical Branch ALPRAZolam Yes [id number] TAKE ONE [facility] 1 mg tablet 2-14 TABLET BY ity of 00:00: MOUTH [place] 00 THREE Medical TIMES A Branch DAY NEEDED FOR ANXIETY amoxicillin Yes [id number] 1{tbl} Take 1 [facility] -clavulanat 2-14 tablet by ity of e 00:00: mouth 2 [place] (AUGMENTIN) 00 (two) Medical 875-125 mg times Branch per tablet daily. citalopram Yes [id number] 40mg Take 1 U nivers 40 mg 2-14 tablet by ity of tablet 00:00: mouth [place] 00 daily. Medical Branch ALPRAZolam Yes [id number] TAKE ONE [facility] 1 mg tablet 2-14 TABLET BY ity of 00:00: MOUTH [place] 00 THREE Medical TIMES A Branch DAY NEEDED FOR ANXIETY amoxicillin Yes [id number] 1{tbl} Take 1 [facility] -clavulanat 2-14 tablet by ity of e 00:00: mouth 2 [place] (AUGMENTIN) 00 (two) Medical 875-125 mg times Branch per tablet daily. citalopram Yes [id number] 40mg Take 1 U nivers 40 mg 2-14 tablet by ity of tablet 00:00: mouth [place] 00 daily. Medical Branch ALPRAZolam Yes [id number] TAKE ONE [facility] 1 mg tablet 2-14 TABLET BY ity of 00:00: MOUTH [place] 00 THREE Medical TIMES A Branch DAY NEEDED FOR ANXIETY amoxicillin Yes [id number] 1{tbl} Take 1 [facility] -clavulanat 2-14 tablet by ity of e 00:00: mouth 2 [place] (AUGMENTIN) 00 (two) Medical 875-125 mg times Branch per tablet daily. citalopram Yes [id number] 40mg Take 1 U nivers 40 mg 2-14 tablet by ity of tablet 00:00: mouth [place] 00 daily. Medical Branch ALPRAZolam Yes [id number] TAKE ONE [facility] 1 mg tablet 2-14 TABLET BY ity of 00:00: MOUTH [place] 00 THREE Medical TIMES A Branch DAY NEEDED FOR ANXIETY amoxicillin Yes [id number] 1{tbl} Take 1 [facility] -clavulanat 2-14 tablet by ity of e 00:00: mouth 2 [place] (AUGMENTIN) 00 (two) Medical 875-125 mg times Branch per tablet daily. citalopram Yes [id number] 40mg Take 1 U nivers 40 mg 2-14 tablet by ity of tablet 00:00: mouth [place] 00 daily. Medical Branch ALPRAZolam Yes [id number] TAKE ONE [facility] 1 mg tablet 2-14 TABLET BY ity of 00:00: MOUTH [place] 00 THREE Medical TIMES A Branch DAY NEEDED FOR ANXIETY amoxicillin Yes [id number] 1{tbl} Take 1 [facility] -clavulanat 2-14 tablet by ity of e 00:00: mouth 2 [place] (AUGMENTIN) 00 (two) Medical 875-125 mg times Branch per tablet daily. citalopram Yes [id number] 40mg Take 1 U nivers 40 mg 2-14 tablet by ity of tablet 00:00: mouth [place] 00 daily. Medical Branch ALPRAZolam Yes [id number] TAKE ONE [facility] 1 mg tablet 2-14 TABLET BY ity of 00:00: MOUTH [place] 00 THREE Medical TIMES A Branch DAY NEEDED FOR ANXIETY amoxicillin Yes [id number] 1{tbl} Take 1 [facility] -clavulanat 2-14 tablet by ity of e 00:00: mouth 2 [place] (AUGMENTIN) 00 (two) Medical 875-125 mg times Branch per tablet daily. citalopram Yes [id number] 40mg Take 1 U nivers 40 mg 2-14 tablet by ity of tablet 00:00: mouth [place] 00 daily. Medical Branch ALPRAZolam Yes [id number] TAKE ONE [facility] 1 mg tablet 2-14 TABLET BY ity of 00:00: MOUTH [place] 00 THREE Medical TIMES A Branch DAY NEEDED FOR ANXIETY amoxicillin Yes [id number] 1{tbl} Take 1 [facility] -clavulanat 2-14 tablet by ity of e 00:00: mouth 2 [place] (AUGMENTIN) 00 (two) Medical 875-125 mg times Branch per tablet daily. citalopram Yes [id number] 40mg Take 1 [facility] nivers 40 mg 2-14 tablet by ity of tablet 00:00: mouth [place] 00 daily. Medical Branch ALPRAZolam Yes [id number] TAKE ONE [facility] 1 mg tablet 2-14 TABLET BY ity of 00:00: MOUTH [place] 00 THREE Medical TIMES A Branch DAY NEEDED FOR ANXIETY amoxicillin Yes [id number] 1{tbl} Take 1 [facility] -clavulanat 2-14 tablet by ity of e 00:00: mouth 2 [place] (AUGMENTIN) 00 (two) Medical 875-125 mg times Branch per tablet daily. ALPRAZolam Yes [id number] TAKE ONE [facility] 1 mg tablet 2-14 TABLET BY ity of 00:00: MOUTH [place] 00 THREE Medical TIMES A Branch DAY NEEDED FOR ANXIETY amoxicillin Yes [id number] 1{tbl} Take 1 [facility] -clavulanat 2-14 tablet by ity of e 00:00: mouth 2 [place] (AUGMENTIN) 00 (two) Medical 875-125 mg times Branch per tablet daily. citalopram 2022- No [id number] 40mg Take 1 [facility] 40 mg 2-14 - tablet by ity of tablet 00:00: 00:00 mouth [place] 00 :00 daily. Medical Branch metFORMIN 2021- No [id number] 1000mg Take 1 [facility] 1,000 mg 2-14 -09 tablet by ity o f tablet 00:00: 00:00 mouth 2 [place] 00 :00 (two) Medical times Branch daily. pravastatin 2021- No [id number] 80mg Take 1 [facility] 80 mg 2-14 10-19 tablet by ity of tablet 00:00: 00:00 mouth at [place] 00 :00 bedtime. Medical Branch glimepiride 2021- No [id number] 4mg Take 1 [facility] 4 mg tablet 04-03 tablet by it y of 00:00: 00:00 mouth 2 [place] 00 :00 (two) Medical times Branch daily. lisinopriL 2021- No [id number] 20mg Take 1 [facility] 20 mg 04-03 tablet by ity of tablet 00:00: 00:00 mouth [place] 00 :00 daily. Medical Branch levothyroxi 2021- No [id number] 50ug Take 1 [facility] ne 50 mcg 04-03 tablet by ity of tablet 00:00: 00:00 mouth [place] 00 :00 every Medical morning. Branch clotrimazol 2015- Yes Apply to [place] 2-05 area(s) 3 ity of (LOTRIMIN) 00:00: (three) [place] 1 % topical 00 times Medical cream daily. Branch clotrimazol 2015-0 Yes Apply to [place] 2-05 area(s) 3 ity of (LOTRIMIN) 00:00: (three) [place] 1 % topical 00 times Medical cream daily. Branch clotrimazol 2016-0 Yes Apply to [place] 2-05 area(s) 3 ity of (LOTRIMIN) 00:00: (three) [place] 1 % topical 00 times Medical cream daily. Branch clotrimazol 2016-0 Yes Apply to [place] 2-05 area(s) 3 ity of (LOTRIMIN) 00:00: (three) [place] 1 % topical 00 times Medical cream daily. Branch clotrimazol 2016-0 Yes Apply to [place] 2-05 area(s) 3 ity of (LOTRIMIN) 00:00: (three) [place] 1 % topical 00 times Medical cream daily. Branch clotrimazol 2016-0 Yes Apply to [place] 2-05 area(s) 3 ity of (LOTRIMIN) 00:00: (three) [place] 1 % topical 00 times Medical cream daily. Branch clotrimazol 2016-0 Yes Apply to [place] 2-05 area(s) 3 ity of (LOTRIMIN) 00:00: (three) [place] 1 % topical 00 times Medical cream daily. Branch clotrimazol 2016-0 Yes Apply to [place] 2-05 area(s) 3 ity of (LOTRIMIN) 00:00: (three) [place] 1 % topical 00 times Medical cream daily. Branch clotrimazol 2016-0 Yes Apply to [place] 2-05 area(s) 3 ity of (LOTRIMIN) 00:00: (three) [place] 1 % topical 00 times Medical cream daily. Branch clotrimazol 2016-0 Yes Apply to [place] 2-05 area(s) 3 ity of (LOTRIMIN) 00:00: (three) [place] 1 % topical 00 times Medical cream daily. Branch clotrimazol 2016-0 Yes Apply to [place] 2-05 area(s) 3 ity of (LOTRIMIN) 00:00: (three) [place] 1 % topical 00 times Medical cream daily. Branch clotrimazol 2016-0 Yes Apply to [place] 2-05 area(s) 3 ity of (LOTRIMIN) 00:00: (three) [place] 1 % topical 00 times Medical cream daily. Branch clotrimazol 2016-0 Yes Apply to [place] 2-05 area(s) 3 ity of (LOTRIMIN) 00:00: (three) [place] 1 % topical 00 times Medical cream daily. Branch clotrimazol 2016-0 Yes Apply to [place] 2-05 area(s) 3 ity of (LOTRIMIN) 00:00: (three) [place] 1 % topical 00 times Medical cream daily. Branch clotrimazol 2016-0 Yes Apply to [place] 2-05 area(s) 3 ity of (LOTRIMIN) 00:00: (three) [place] 1 % topical 00 times Medical cream daily. Branch clotrimazol 2016-0 Yes Apply to [place] 2-05 area(s) 3 ity of (LOTRIMIN) 00:00: (three) [place] 1 % topical 00 times Medical cream daily. Branch clotrimazol 2016-0 Yes Apply to [place] 2-05 area(s) 3 ity of (LOTRIMIN) 00:00: (three) [place] 1 % topical 00 times Medical cream daily. Branch clotrimazol 2016-0 Yes Apply to [place] 2-05 area(s) 3 ity of (LOTRIMIN) 00:00: (three) [place] 1 % topical 00 times Medical cream daily. Branch clotrimazol 2016-0 Yes Apply to [place] 2-05 area(s) 3 ity of (LOTRIMIN) 00:00: (three) [place] 1 % topical 00 times Medical cream daily. Branch clotrimazol 2016-0 Yes Apply to [place] 2-05 area(s) 3 ity of (LOTRIMIN) 00:00: (three) [place] 1 % topical 00 times Medical cream daily. Branch clotrimazol 2016-0 Yes Apply to [place] 2-05 area(s) 3 ity of (LOTRIMIN) 00:00: (three) [place] 1 % topical 00 times Medical cream daily. Branch clotrimazol 2016-0 Yes Apply to [place] 2-05 area(s) 3 ity of (LOTRIMIN) 00:00: (three) [place] 1 % topical 00 times Medical cream daily. Branch clotrimazol 2016-0 Yes Apply to [place] 2-05 area(s) 3 ity of (LOTRIMIN) 00:00: (three) [place] 1 % topical 00 times Medical cream daily. Branch clotrimazol 2016-0 Yes Apply to [place] 2-05 area(s) 3 ity of (LOTRIMIN) 00:00: (three) [place] 1 % topical 00 times Medical cream daily. Branch Vital Signs Vital Name Observation Time Observation Value Comments Source Systolic blood 2021-09-25 20:48:00 157 mm[Hg] Univer s[facility] Diastolic blood 2021-09-25 20:48:00 82 mm[Hg] [facility] Heart rate 2021-09-25 20:47:00 92 /min [facility] Body temperature 2021-09-25 20:47:00 37 Kelse[facility] Body height 2021-09-25 20:47:00 165.1 cm [facility] Body weight 2021-09-25 20:47:00 104.327 kg [facility] BMI 2021-09-25 20:47:00 38.27 kg/m2 [facility] Oxygen saturation in 2021-09-25 20:47:00 95 /min [facility] Arterial blood by [facility] Pulse oximetry Branch Procedures This patient has no known procedures. Encounters Start End Encounter Admission Attending Care Care Encounter Source Date/Time Date/Time Type Type Clinicians Facility Department ID 2022-08-09 2022-08-09 [facility] 1.2.840.114 [id number] Univers 00:00:00 00:00:00 [facility] 350.1.13.10 it y of [place] 4.2.7.2.686 Forrest as ELOINA?BLEA [id number] [address] MEDICAL OFFICE [facility] 2022-07-24 2022-07-24 [facility] 1.2.840.114 [id number] Univers 00:00:00 00:00:00 [facility] 350.1.13.10 it y of [place] 4.2.7.2.686 Forrest as ELOINA?BLEA [id number] [address] MEDICAL OFFICE [facility] 2022-07-22 2022-07-22 [facility] 1.2.840.114 [id number] Univers 00:00:00 00:00:00 [facility] 350.1.13.10 it y of [place] 4.2.7.2.686 Forrest as ELOINA?BLEA [id number] [address] MEDICAL OFFICE [facility] 2022-07-12 2022-07-12 Brock [facility] 1.2.840.114 [id number] Univers 00:00:00 00:00:00 [facility] HEALTH 350.1.13.10 it y of [place] 4.2.7.2.686 Forrest as ELOINA?BLEA [id number] Me dical KNEY [address] [place] [address] 2022-06-10 2022-06-10 [facility] 1.2.840.114 [id number] Univers 00:00:00 00:00:00 Marsha HEALTH 350.1.13.10 it y of [place] 4.2.7.2.686 Forrest as ELOINA?BLEA [id number] [place] quinton KITCHEN [address] [place] [address] 2022-06-08 2022-06-08 [facility] 1.2.840.114 [id number] Univers 00:00:00 00:00:00 Enoch HEALTH 350.1.13.10 it y of [place] 4.2.7.2.686 Forrest as ELOINA?BLEA [id number] [place] quinton KITCHEN [address] [place] [address] 2022-05-27 2022-05-27 [facility] 1.2.840.114 [id number] Univers 00:00:00 00:00:00 Marsha HEALTH 350.1.13.10 it y of [place] 4.2.7.2.686 Forrest as ELOINA?BLEA [id number] [place] quinton KITCHEN [address] [place] [address] 2022-05-20 2022-05-20 [facility] 1.2.840.114 [id number] Univers 00:00:00 00:00:00 Marsha HEALTH 350.1.13.10 it y of [place] 4.2.7.2.686 Forrest as ELOINA?BLEA [phone] [place] quinton KITCHEN [address] [place] [address] 2022-05-14 2022-05-14 [facility] 1.2.840.114 [id number] Univers 00:00:00 00:00:00 Enoch HEALTH 350.1.13.10 it y of [place] 4.2.7.2.686 Forrest as ELOINA?BLEA [phone] [place] quinton KITCHEN [address] [place] [address] 2022-04-24 2022-04-24 [facility] 1.2.840.114 [id number] Univers 00:00:00 00:00:00 Marsha HEALTH 350.1.13.10 it y of [place] 4.2.7.2.686 Forrest as ELOINA?BLEA [id number] [place] qu[place] MELENDRE[address] OFFICE [facility] 2022-04-20 2022-04-20 [facility] 1.2.840.114 [id number] Univers 00:00:00 00:00:00 [facility] 350.1.13.10 it y of [place] 4.2.7.2.686 Forrest as ELOINA?BLEA [id number] [address] OFFICE [facility] 2022-03-29 2022-03-29 [facility] 1.2.840.114 [id number] Univers 00:00:00 00:00:00 Marsha HEALTH 350.1.13.10 it y of [place] 4.2.7.2.686 Forrest as ELOINA?BLEA [id number] [address] 2022-03-03 2022-03-03 [facility] 1.2.840.114 [id number] Univers 00:00:00 00:00:00 [place] [facility]ALTH 350.1.13.10 it y of [place] 4.2.7.2.686 Forrest as ELOINA?BLEA [id number] [address] OFFICE [facility] 2022-02-20 2022-02-20 [facility] 1.2.840.114 [id number] Univers 00:00:00 00:00:00 [place] [facility] 350.1.13.10 it y of [place] 4.2.7.2.686 Forrest as ELOINA?BLEA [id number] [address] OFFICE [facility] 2022-02-19 2022-02-19 [facility] 1.2.463.237 [id number] Univers 00:00:00 00:00:00 [place] [facility] 350.1.13.10 it y of [place] 4.2.7.2.686 Forrest as ELOINA?BLEA [id number] [address] 2022-02-12 2022-02-12 [facility] 1.2.840.114 [id number] Univers 00:00:00 00:00:00 Marsha HEALTH 350.1.13.10 it y of [place] 4.2.7.2.686 Forrest as ELOINA?BLEA [id number] [place] MELENDREZ[address] OFFICE [facility] 2021-12-26 2021-12-26 [facility] 1.2.840.114 [id number] Univers 00:00:00 00:00:00 Marsha HEALTH 350.1.13.10 it y of [place] 4.2.7.2.686 Forrest as ELOINA?BLEA [id number] [place] MELENDREZ[address] OFFICE [facility] 2021-12-21 2021-12-21 [facility] 1.2.840.114 [id number] Univers 00:00:00 00:00:00 Marsha HEALTH 350.1.13.10 it y of [place] 4.2.7.2.686 Forrest as ELOINA?BLEA [id number] [address] OFFICE [facility] 2021-12-02 2021-12-02 [facility] 1.2.840.114 [id number] Univers 00:00:00 00:00:00 Marsha HEALTH 350.1.13.10 it y of [place] 4.2.7.2.686 Forrest as ELOINA?BLEA [id number] [address] OFFICE [facility] 2021-11-21 2021-11-21 [facility] 1.2.840.114 [id number] Univers 00:00:00 00:00:00 Marsha HEALTH 350.1.13.10 it y of [place] 4.2.7.2.686 Forrest as ELOINA?BLEA [id number] [address] OFFICE [facility] 2021-11-14 2021-11-14 [facility] 1.2.840.114 [id number] Univers 00:00:00 00:00:00 Marsha HEALTH 350.1.13.10 it y of [place] 4.2.7.2.686 Forrest as ELOINA?BLEA [id number] [facility] PARVIN[address] OFFICE BUILDING 2021-10-20 2021-10-20 Brock [facility] 1.2.840.114 [id number] Univers 00:00:00 00:00:00 [facility] 350.1.13.10 it y of [place] 4.2.7.2.686 Forrest as ELOINA?BLEA [id number] [address] OFFICE [facility] 2021-09-25 2021-09-25 Office [facility] 1.2.840.114 [id number] Univers 15:45:00 16:00:00 Visit [facility] 350.1.13.10 it y of [place]i [place] 4.2.7.2.686 Forrest as ELOINA?BLEA [id number] [address] OFFICE [facility] 2021-09-25 2021-09-25 Outpatient [facility] [id number] Univers 15:45:00 15:57:56 [facility] 2021-09-25 2021-09-25 Outpatient R [facility] [id number] Univers 15:45:00 15:45:00 [facility] 2021-08-03 2021-08-03 [facility] 1.2.840.114 [id number] Univers 00:00:00 00:00:00 [facility] 350.1.13.10 it y of [place] 4.2.7.2.686 Forrest as ELOINA?BLEA [id number] [address] OFFICE [facility] 2021-07-04 2021-07-06 Outpatient X [facility]LOS [facility] [id number] Univers 22:24:00 19:44:00 [facility] 2021-07-04 2021-07-06 Emergency Cedrick Devine 1.2.840. 114 [id number] Univers 22:24:00 19:44:00 Bryson Sanchez 350.1.13.10 ity of [place] Horowitz [facility] 4.2.7.2.68 6 [place] [id number] [address] 2021-07-05 2021-07-05 Outpatient [facility] [id number] Univers 10:15:00 10:15:00 MARSHA kilgore [facility] 2021-07-03 2021-07-03 Telephone [facility] 1.2.986.909 [id number] Univers 00:00:00 00:00:00 [facility] 350.1.13.10 it y of [place] 4.2.7.2.686 Forrest as ELOINA?BLEA [id number] [address] OFFICE [facility] 2021-06-27 2021-06-27 [facility] 1.2.840.114 [id number] Univers 00:00:00 00:00:00 Marsha HEALTH 350.1.13.10 it y of [place] 4.2.7.2.686 Forrest as ELOINA?BLEA [id number] [address] 2021-06-27 2021-06-27 Darlene [facility] 1.2.334.479 [id number] Univers 00:00:00 00:00:00 [facility] 350.1.13.10 it y of [place] 4.2.7.2.686 Forrest as ELOINA?BLEA [id number] [address] 2021-06-15 2021-06-15 [facility] 1.2.840.114 [id number] Univers 00:00:00 00:00:00 [place] [facility] 350.1.13.10 it y of [place] 4.2.7.2.686 Forrest as ELOINA?BLEA [id number] [address] 2021-06-10 2021-06-10 [facility] 1.2.840.114 [id number] Univers 00:00:00 00:00:00 Marsha HEALTH 350.1.13.10 it y of [place] 4.2.7.2.686 Forrest as ELOINA?BLEA [id number] [address] OFFICE [facility] 2021-06-06 2021-06-06 Darlene [facility] 1.2.429.380 [id number] Univers 00:00:00 00:00:00 [facility] 350.1.13.10 it y of [place] 4.2.7.2.686 Forrest as ELOINA?BLEA [id number] [place] MELENDREZ[address] OFFICE [facility] 2021-06-03 2021-06-03 Emergency X ERIKA, K RUST ERT [id number] Univers 09:48:00 13:39:00 ity [facility] 2021-06-03 2021-06-03 Emergency Erika, Cristina RUST 1.2.840.114 [id number] Univers 09:48:00 13:39:00 Anna SANDY 350.1.13.10 i ty of [place]2.7.2.[place] [id number] [address] 2021-05-31 2021-05-31 [facility]ill [facility] 1.2.840.114 [id number] Univers 00:00:00 00:00:00 [facility] 350.1.13.10 it y of [place] 4.2.7.2.686 Forrest as ELOINA?BLEA [id number] [place] MELENDREZ[address] OFFICE [facility] 2021-05-24 2021-05-24 Office [facility] 1.2.840.114 [id number] Univers 13:30:00 13:45:00 Visit [facility] 350.1.13.10 it y of [place] 4.2.7.2.686 Forrest as ELOINA?BLEA [id number] [address] OFFICE [facility] 2021-05-24 2021-05-24 Outpatient R JODY [facility] [id number] Univers 13:30:00 13:30:00 [facility] 2021-05-19 2021-05-19 Telephone [facility] 1.2.701.420 [id number] Univers 00:00:00 00:00:00 Marsha AUXIER 350.1.13.10 i ty of [facility] 4.2.7.2.[place] PROF[place] [id number] [address] 2021-04-03 2021-04-03 Office [facility] 1.2.840.114 [id number] Univers 14:00:00 14:15:00 Visit Marsha HEALTH 350.1.13.10 it y of [place] 4.2.7.2.686 Forrest as ELOINA?BLEA [id number] [address] MEDICAL OFFICE [facility] 2021-04-03 2021-04-03 Outpatient Demetris VERA [facility] [id number] Univers 14:00:00 14:00:00 MARSHA knoxjericho [facility] 2021-04-03 2021-04-03 Outpatient [facility] [id number] Univers 14:00:00 14:00:00 [facility] 2021-04-03 2021-04-03 Orders Doctor DARLENE 1.2.840.114 [id number] Univers 00:00:00 00:00:00 Only Unassigned, JERED 350.1.13.10 ity of [place] [facility] 4.2.7.2.686 Forrest as [id number] [address] 2021-03-31 2021-03-31 Patricia [facility] 1.2.840.114 [id number] Univers 00:00:00 00:00:00 (Out) Marsha HEALTH 350.1.13.10 it y of [place] 4.2.7.2.686 Forrest as ELOINA?BLEA [id number] [address] MEDICAL OFFICE [facility] 2021-03-21 2021-03-21 Brock [facility] 1.2.840.114 [id number] Univers 00:00:00 00:00:00 Marsha HEALTH 350.1.13.10 it y of [place] 4.2.7.2.686 Forrest as ELOINA?BLEA [id number] [address] OFFICE [facility] 2021-03-04 2021-03-04 Brock [facility] 1.2.840.114 [id number] Univers 00:00:00 00:00:00 Marsha HEALTH 350.1.13.10 it y of [place] 4.2.7.2.686 Forrest as PROFESSIO [phone] [address] OFFICE BUILDING ONE 2021-02-10 2021-02-10 Brock [facility] 1.2.840.114 [id number] Univers 00:00:00 00:00:00 Marsha HEALTH 350.1.13.10 it y of [place] 4.2.7.2.686 Forrest as PROFESSIO [id number] Va tonyal NAL [address] [place] [address] OFFICE [facility] ONE 2021-01-04 2021-01-04 Brock [facility] 1.2.840.114 [id number] Univers 00:00:00 00:00:00 Marsha HEALTH 350.1.13.10 it y of [place] 4.2.7.2.686 Forrest as PROFESSIO [phone] Va dical NAL [address] [place] [address] ONE 2020-12-29 2020-12-29 Brock [facility] 1.2.840.114 [id number] Univers 00:00:00 00:00:00 Marsha HEALTH 350.1.13.10 it y of [place] 4.2.7.2.686 Forrest as PROFESSIO [phone] Va dical NAL [address] [place] [address] OFFICE [facility] ONE 2020-12-10 2020-12-10 Brock [facility] 1.2.840.114 [id number] Univers 00:00:00 00:00:00 [facility] 350.1.13.10 it y of [place] 4.2.7.2.686 Forrest as Professio [id number] Va dical nal [address] [place] [address] [facility] One 2020-11-25 2020-11-25 Brock [facility] 1.2.840.114 [id number] Univers 00:00:00 00:00:00 [facility] 350.1.13.10 it y of [place] 4.2.7.2.686 Forrest as Professio [phone] Va dical nal [address] [place] [address] [facility] One 2020-10-06 2020-10-06 Brock Vera, RUST 1.2.840.114 [id number] Univers 00:00:00 00:00:00 [facility] 350.1.13.10 it y of [place] 4.2.7.2.686 [place] as Professio [id number] [address] Office [facility] One 2020-09-02 2020-09-02 Reftaty [facility] 1.2.840.114 [id number] Univers 00:00:00 00:00:00 [facility] 350.1.13.10 it y of [place] 4.2.7.2.686 [place] as Professio [id number] [address] Office [facility] One 2020-08-16 2020-08-16 Eder You 1.2.840.114 [id number] Univers 00:00:00 00:00:00 Management Kalpana Waldeny 350.1.13.10 ity of [place]2.7.2.[place] [id number] [address] 2020-08-06 2020-08-06 Reftaty [facility] 1.2.840.114 [id number] Univers 00:00:00 00:00:00 [facility] 350.1.13.10 it y of [place] 4.2.7.2.686 Forrest as Professio [phone] [address] One 2020-07-04 2020-07-04 Reftaty [facility] 1.2.840.114 [id number] Univers 00:00:00 00:00:00 [facility] 350.1.13.10 it y of [place] 4.2.7.2.686 Forrest as Professio [id number] [address] Office [facility] One 2020-06-08 2020-06-08 Office [facility] 1.2.840.114 [id number] Univers 13:42:24 13:57:24 Visit [facility] 350.1.13.10 it y of [place] 4.2.7.2.686 Forrest as Professio [phone] [facility] nal [address] [place] [address] [address] [facility] One 2020-06-08 2020-06-08 Outpatient R JODY [facility] [id number] Univers 13:45:00 13:45:00 MARSHA kilgore [facility] 2020-06-02 2020-06-02 Outpatient R JODY [facility] [id number] Univers 14:15:00 14:15:00 MARSHA jame [facility] 2020-06-02 2020-06-02 Telephone Jody RUST 1.2.597.557 [id number] Univers 00:00:00 00:00:00 [facility] 350.1.13.10 it y of [place] 4.2.7.2.686 Forrest as Professio [phone] Va dical nal [address] [place] Office Building One 2020-05-24 2020-05-24 Reftaty [facility] 1.2.840.114 [id number] Univers 00:00:00 00:00:00 [facility] 350.1.13.10 it y of [place] 4.2.7.2.686 Forrest as Professio [id number] Va dical nal [address] [place] Office [facility] One 2020-05-20 2020-05-20 Reftaty Manduj[facility]ers[facility] 1.2.840.114 [id number] Univers 00:00:00 00:00:00 [facility] 350.1.13.10 it y of [place] 4.2.7.2.686 Forrest as Professio [id number] [facility] nal [address] [place] Office [facility] One 2020-04-30 2020-04-30 Patient Carlos Manuel RUST 1.2.840.114 [id number] Univers 00:00:00 00:00:00 Outreach Randall PRIMARY 350.1.13.10 i ty of [facility] 4.2.7.2.[place] [phone] [address] 2020-04-21 2020-04-21 Reftaty [facility] 1.2.840.114 [id number] Univers 00:00:00 00:00:00 [facility] 350.1.13.10 it y of [place] 4.2.7.2.686 Forrest as Professio [phone] Va dical nal [address] Office Building One 2020-03-19 2020-03-19 Reftaty [facility] 1.2.840.114 [id number] Univers 00:00:00 00:00:00 [facility] 350.1.13.10 it y of [place] 4.2.7.2.686 [place] as Professio [phone] [place] nal [facility] Building One 2020-02-20 2020-02-20 Brock Vera ORFIDELIA 1.2.840.114 [id number] Univers 00:00:00 00:00:00 [facility] 350.1.13.10 it y of [place] 4.2.7.2.686 [place] as Professio [phone] [place] nal [facility] Office Building One 2020-01-21 2020-01-21 Brock Vera RUST 1.2.840.114 [id number] Univers 00:00:00 00:00:00 [facility] 350.1.13.10 it y of [place] 4.2.7.2.686 [place] as Professio [phone] [place] nal [address] [place] [address] Office Building One 2020-01-19 2020-01-19 Brock [facility] 1.2.840.114 [id number] Univers 00:00:00 00:00:00 [facility] 350.1.13.10 it y of [place] 4.2.7.2.686 Forrest as Professio [phone] Va tonyal nal [address] [place] [address] Office Building One 2019-12-17 2019-12-17 Brock [facility] 1.2.840.114 [id number] Univers 00:00:00 00:00:00 [facility] 350.1.13.10 it y of [place] 4.2.7.2.686 Forrest as Professio [phone] Va dical nal [facility] Building One 2019-11-15 2019-11-15 Brock Vera, RUST 1.2.840.114 [id number] Univers 00:00:00 00:00:00 [facility] 350.1.13.10 it y of [place] 4.2.7.2.686 Forrest as Professio [phone] Va tonyal nal [facility] Building One 2019-10-18 2019-10-18 Brock [facility] 1.2.840.114 [id number] Univers 00:00:00 00:00:00 [facility] 350.1.13.10 it y of [place] 4.2.7.2.686 Forrest as Professio [phone] Va dical nal [address] [place] Office [facility] 2019-09-13 2019-09-13 Reftaty [facility] 1.2.840.114 [id number] Univers 00:00:00 00:00:00 [facility] 350.1.13.10 it y of [place] 4.2.7.2.686 Forrest as Professio [phone] Va dical nal [address] [place] Office [facility] One 2019-08-19 2019-08-19 Hospital [facility] 1.2.840.114 [id number] Univers 08:30:00 23:59:00 Encounter Graeme Valente 350.1.13.10 ity of [place] 4.2.7.2.686 [place] [facility] [phone] [facility] [address] [place] [address] 2019-08-19 2019-08-19 Outpatient [facility] [id number] Univers 16:15:00 16:15:00 GRAEME itjericho [facility] 2019-08-19 2019-08-19 Office [facility] 1.2.810.660 [id number] Univers 14:40:25 15:06:52 Visit Graeme Lin 350.1.13.10 it y of Surgical 4.2.7.2.686 [place] as Specialti [phone] Va dical es [address] [facility] 2019-08-17 2019-08-17 Outpatient R [facility] [id number] Univers 15:45:00 15:45:00 GRAEME itjericho [facility] 2019-08-17 2019-08-17 Telephone [facility] 1.2.840.114 [id number] Univers 00:00:00 00:00:00 Graeme Lin 350.1.13.10 it y of Surgical 4.2.7.2.686 [place] as Specialti [phone] Va dical es [address] [facility] 2019-08-16 2019-08-16 [facility] 1.2.840.114 [id number] Univers 00:00:00 00:00:00 [facility] 350.1.13.10 it y of [place] 4.2.7.2.686 Forrest as Professio [id number] [address] One 2019-07-13 2019-07-13 Reftaty [facility] 1.2.840.114 [id number] Univers 00:00:00 00:00:00 [facility] 350.1.13.10 it y of [place] 4.2.7.2.686 Forrest as Professio [id number] [address] One 2019-06-09 2019-06-09 [facility] 1.2.840.114 [id number] Univers 00:00:00 00:00:00 [facility] 350.1.13.10 it y of [place] 4.2.7.2.686 [place] as Professio [id number] [address] One 2019-05-15 2019-05-15 Outpatient R JODY [facility] [id number] Univers 11:30:00 11:30:00 MARSHA ity [facility] 2019-05-12 2019-05-12 Outpatient R VERA [facility] [id number] Univers 09:30:00 09:30:00 [facility] 2019-05-12 2019-05-12 Telemedici [facility] 1.2.840.114 [id number] Univers 06:54:57 07:09:57 ne Visit [facility] 350.1.13.10 i ty of [place] 4.2.7.2.686 [place] as Professio [phone] [address] One 2019-05-12 2019-05-12 Telephone Vera, RUST 1.2.075.340 [id number] Univers 00:00:00 00:00:00 [facility] 350.1.13.10 it y of [place] 4.2.7.2.686 [place] as Professio [phone] [address] One 2019-05-12 2019-05-12 Refill [facility] 1.2.840.114 [id number] Univers 00:00:00 00:00:00 [facility] 350.1.13.10 it y of [place] 4.2.7.2.686 Forrest as Professio [phone] Va dical nal [address] [place] Office Building One 2019-04-12 2019-04-12 Brock [facility] 1.2.840.114 [id number] Univers 00:00:00 00:00:00 [facility] [id number] it y of [place] [id number] [facility] as Professio [phone] [facility] n[facility] [address] [place] [facility] 2019-04-06 2019-04-06 [facility] 1.2.840.114 [id number] Univers 00:00:00 00:00:00 [facility] [id number] it y of [place] [id number] [facility] as Professio [phone] [facility] nal [address] [place] [facility] One 2019-03-16 2019-03-16 [facility] 1.2.840.114 [id number] Univers 00:00:00 00:00:00 [facility] [id number] it y of [place] [id number] [facility] as Professio [phone] [facility] nal [address] [place] [facility] One 2019-03-10 2019-03-10 [facility] 1.2.840.114 [id number] Univers 00:00:00 00:00:00 [facility] [id number] it y of [place] [id number] [facility] as Professio [phone] [facility] n[facility] [address] [place] [facility] One Results This patient has no known results.
[2022-08-29] MEDS ORDERED: ONDANSETRON 4 MG/2 ML VIAL ONE (05:49)
[2022-08-29] MEDS ORDERED: CEFTRIAXONE 1000 MG/VIAL ONE (05:49)
[2022-08-29] MEDS ORDERED: PANTOPRAZOLE 40 MG INJ ONE (05:49)
[2022-08-29] MEDS ORDERED: METOCLOPRAMIDE 10 MG/2mL INJ ONE (05:49)
[2022-08-29] MEDS ORDERED: NA CHLORIDE 0.9% 250 ML ONE ×3 (05:50→22:21)
[2022-08-29] MEDS ORDERED: NA CHLORIDE 0.9% 1,000 ML ONE (05:50)
[2022-08-29] MEDS ORDERED: METOPROLOL TARTRATE 5 MG/5 ML INJ IV ONE (05:50)
[2022-08-29] MEDS ORDERED: FAMOTIDINE 20 MG/2 ML VIAL IV ONE (05:50)
[2022-08-29 05:56] LABS: Absolute Lymphocytes (CBC) 1.6 K/uL (0.7-4.9); Hematocrit 27.2 % (36.0-45.0); Lymphocytes % 9.7 % (15.3-44.8); MCV 84.2 fL (80-100); MPV 8.9 fL (7.6-11.3); RBC Red Blood Cell Count 3.23 M/uL (3.86-4.86)
[2022-08-29 06:01] LABS: Protime INR 0.97
[2022-08-29 06:13] LABS: Albumin 2.8 g/dL (3.4-5.0); Bilirubin Total 0.2 mg/dL (0.2-1.0); Potassium 5.7 mEq/L (3.5-5.1); Protein, Total 6.8 g/dL (6.4-8.2)
--- NOTE | 2022-08-29 06:38 | ER ---
Nurse's Notes [facility] Name: Karlie Hidalgo Age: 57 yrs Sex: Female : 1965 Arrival Date: 08/29/2022 Time: 05:23 Bed 4 Private MD: Diagnosis: GI Bleed/ Gastrointestinal hemorrhage, unspecified;Upper GI bleeding, acute renal insufficiency, blood loss anemia, hyperkalemia Presentation: 08/29 05:26 Chief complaint: EMS states: 57 year old female. Reports feeling nausea since yesterday ha1 morning. On our arrival she was vomiting blood. pt. denies pain. Coronavirus screen: Vaccine status: Patient reports receiving the 2nd dose of the covid vaccine. Moderna. Ebola Screen: No symptoms or risks identified at this time. Initial Sepsis Screen: Does the patient meet any 2 criteria? No. Patient's initial sepsis screen is negative. Does the patient have a suspected source of infection? No. Patient's initial sepsis screen is negative. Risk Assessment: Do you want to hurt yourself or someone else? Patient reports no desire to harm self or others. Onset of symptoms was August 28, 2022. 05:26 Method Of Arrival: EMS: [facility] ha1 05:26 Acuity: WILBER 3 ha1 Triage Assessment: 05:25 General: Appears uncomfortable, Behavior is calm, cooperative. Pain: Denies pain. ha1 Neuro: Level of Consciousness is awake, alert, obeys commands, Oriented to person, place, time, situation. Cardiovascular: Patient's skin is warm and dry. Respiratory: Airway is patent Respiratory effort is even, unlabored, Respiratory pattern is regular, symmetrical. GI: Abdomen is round non-distended, obese, vomiting brown emesis Bowel sounds present X 4 quads. Reports nausea, vomiting. : No signs and/or symptoms were reported regarding the genitourinary system. Derm: Skin is moist, Skin is normal. Musculoskeletal: Circulation, motion, and sensation intact. Range of motion: intact in all extremities. Historical: - Allergies: 05:30 Benadryl; ha1 - PMHx: 05:30 Hypertensive disorder; Diabetes mellitus; ha1 - Immunization history:: Adult Immunizations unknown. - Social history:: Smoking status: Patient denies any tobacco usage or history of. - Family history:: not pertinent. Screenin:33 Abuse screen: Denies threats or abuse. Denies injuries from another. Nutritional ha1 screening: No deficits noted. Tuberculosis screening: No symptoms or risk factors identified. 07:34 [facility] ED Fall Risk Assessment (Adult) Score/Fall Risk Level 0 - 2 = Low Risk. iw Assessment: 05:34 Reassessment: see triage assessment. ha1 06:22 Reassessment: Patient and/or family updated on plan of care and expected duration. Pain ha1 level reassessed. Patient is alert, oriented x 3, equal unlabored respirations, skin warm/dry/pink. Patient states feeling better. Patient states symptoms have improved. 07:27 General: Appears in no apparent distress. Behavior is calm, cooperative. Pain: Denies iw pain. Neuro: Level of Consciousness is awake, alert, obeys commands, Oriented to person, place, time, situation, Moves all extremities. Full function. Cardiovascular: Patient's skin is warm and dry. Respiratory: Respiratory effort is even, unlabored, Respiratory pattern is regular, symmetrical. GI: Reports vomiting. Derm: Skin is intact, Skin is dry. Musculoskeletal: Range of motion: intact in all extremities. 07:35 Reassessment: SDS RN st bedside for transport, copy of blood bank order sent with RN. iw Vital Signs: 05:26 BP 171 / 100; Pulse 87; Resp 17 S; Temp 98.6(O); Pulse Ox 100% on R/A; Weight 108.86 ha1 kg; Height 5 ft. 5 in. ; 06:00 BP 195 / 89; Pulse 87; Resp 20 S; Pulse Ox 99% on R/A; ha1 06:59 Pulse 74; Resp 20 S; Pulse Ox 99% on R/A; as6 07:27 BP 157 / 103; Pulse 71; Resp 19; Temp 97.3(TE); Pulse Ox 98% on R/A; Pain 0/10; iw 05:26 Body Mass Index 39.94 (108.86 kg, 165.1 cm) ha1 07:27 Pain Scale: Adult iw ED Course: 05:25 Patient arrived in ED. ha1 05:25 Patient has correct armband on for positive identification. Placed in gown. Bed in low ha1 position. Call light in reach. Side rails up X 1. 05:25 Arm band placed on right wrist. ha1 05:30 Triage completed. ha1 05:31 Baron Hubbard MD is Attending Physician. sp4 05:34 Radiology exam delayed due to lab results not completed at this time. (BUN/Creatinine) eh4 IV insertion attempt and/or patient not having appropriate IV at this time. 05:39 Inserted saline lock: 20 gauge in right antecubital area, using aseptic technique. as6 Blood collected. 06:35 Abdomen In Process Unspecified. EDMS 06:38 Den Mendosa is Hospitalizing Provider. sp4 06:55 Juan Jose Knox, CARINA is Primary Nurse. as6 06:55 Inserted saline lock: 22 gauge in right hand, using aseptic technique. Blood collected. as6 07:34 Provided Education on: Blood Transfusion. iw 07:35 No provider procedures requiring assistance completed. Patient admitted, IV remains in iw place. Administered Medications: 05:47 Drug: Famotidine IVP 20 mg Route: IVP; Site: right antecubital; ha1 06:30 Follow up: Response: No adverse reaction; Nausea is decreased ha1 05:48 Drug: NS 0.9% IV 1000 ml Route: IV; Rate: 1 bolus; Site: right antecubital; ha1 05:50 Drug: metoCLOPramide IVP 10 mg Route: IVP; Site: right antecubital; ha1 06:30 Follow up: Response: No adverse reaction; Nausea is decreased ha1 05:53 Drug: Pantoprazole IVP 80 mg Route: IVP; Site: right antecubital; ha1 07:04 Follow up: Response: No adverse reaction ha1 05:55 Drug: Metoprolol IVP 5 mg Route: IVP; Site: right antecubital; ha1 07:03 Follow up: Response: No adverse reaction ha1 05:58 Drug: Ondansetron IVP 4 mg Route: IVP; Site: right antecubital; ha1 06:35 Follow up: Response: No adverse reaction; Nausea is decreased ha1 06:00 Drug: Rocephin - Rocephin (cefTRIAXone) IVPB 1 grams Route: IVPB; Infused Over: 30 ha1 mins; Site: right antecubital; 07:02 Follow up: Response: No adverse reaction; IV Status: Completed infusion; IV Intake: [id number] 06:05 Drug: Pantoprazole IV 8 mg/hr Route: IV; Rate: 25 ml/hr; Site: right antecubital; 1 06:55 Drug: Sodium Bicarbonate IVP 1 amp Route: IVP; Site: right antecubital; 1 06:59 Drug: Calcium Gluconate IVPB 1 grams Route: IVPB; Infused Over: 60 mins; Site: left ha1 antecubital; Medication: 07:35 VIS not applicable for this client. iw Intake: 07:02 IV: 50ml; Total: 50ml. ha1 Outcome: 06:38 Decision to Hospitalize by Provider. sp4 07:34 Admitted to OR accompanied by nurse, via stretcher, with chart. iw 07:34 Condition: good 07:34 Discharge instructions given to patient, Instructed on the need for admit. 07:43 Patient left the ED. iw Signatures: Dispatcher [employer] EDDanielle Becker RN RN Juan Jose Knox RN RN as6 Carrie Meng RN RN [place] [id number] Baron Hubabrd MD MD sp4 Corrections: (The following items were deleted from the chart) 06:18 06:05 Metoprolol IVP 5 mg IVP in right antecubital 1 1 06:19 05:50 Pantoprazole IVP 80 mg IVP in right antecubital [facility]
--- NOTE | 2022-08-29 06:39 | EDPHYS ---
Physician Documentation [facility] Name: Karlie Hidalgo Age: 57 yrs Sex: Female : 1965 Arrival Date: 08/29/2022 Time: 05:23 Bed 4 Private MD: ED Physician Baron Hubbard HPI: 08/29 05:34 This 57 yrs old Female presents to ER via EMS with complaints of Bloody sp4 emesis . 06:39 Pleasant female presents with EMS for acute hematemesis. Patient reports she developed sp4 bloody emesis yesterday she had 4 episodes of coffee-ground and dark bloody emesis at home. On arrival here patient developed bloody emesis and vomited some blood clots. Patient states that she has been taking significant amount of ibuprofen and other NSAIDs for years for different aches and pains. Patient has history of hypertensive disorder and [id number] diabetes mellitus. 06:44 Patient has history of gastric ulcer at the childhood. Since then patient has no sp4 history of gastric ulcers no history of recent endoscopy. Historical: - Allergies: 05:30 Benadryl; ha1 - PMHx: 05:30 Hypertensive disorder; Diabetes mellitus; ha1 - Immunization history:: Adult Immunizations unknown. - Social history:: Smoking status: Patient denies any tobacco usage or history of. - Family history:: not pertinent. ROS: 06:44 Constitutional: Negative for fever, chills, and weight loss, positive generalized sp4 weakness and pallor Eyes: Negative for injury, pain, redness, and discharge, ENT: Negative for injury, pain, and discharge, Neck: Negative for injury, pain, and swelling, Cardiovascular: Negative for chest pain, palpitations, and edema, Respiratory: Negative for shortness of breath, cough, wheezing, and pleuritic chest pain, Abdomen/GI: Negative for abdominal pain, diarrhea, and constipation, positive for vomiting, positive for bloody emesis, positive for vomiting blood clots Back: Negative for injury and pain, : Negative for injury, bleeding, discharge, and swelling, MS/Extremity: Negative for injury and deformity, Skin: Negative for injury, rash, and discoloration, Neuro: Negative for headache, weakness, numbness, tingling, and seizure, Psych: Negative for depression, anxiety, Allergy/Immunology: Negative for hives, rash, and allergies Endocrine: Negative for neck swelling, polydipsia, polyuria, polyphagia, and weight changes Hematologic/Lymphatic: Negative for swollen nodes, abnormal bleeding, and unusual bruising Exam: 06:44 Constitutional: This is a well developed, well nourished patient who is awake, alert, sp4 morbidly overweight female, pale appearing, ill-appearing, nontoxic hypertensive on arrival, on arrival patient had episode of coffee-ground emesis and then vomited several blood clots. Head/Face: Normocephalic, atraumatic. Eyes: Pupils equal round and reactive to light, extra-ocular motions intact. Lids and lashes normal. Conjunctiva and sclera are not injected. Cornea within normal limits. Periorbital areas with no swelling, redness, or edema. ENT: Nares patent. No nasal discharge, no septal abnormalities noted. Tympanic membranes are normal and external auditory canals are clear. Oropharynx with no redness, swelling, or masses, exudates, or evidence of obstruction, uvula midline. Mucous membranes moist. Neck: Trachea midline, no thyromegaly or masses palpated, and no cervical lymphadenopathy. Supple, full range of motion without nuchal rigidity, or vertebral point tenderness. Chest/axilla: Normal chest wall appearance and motion. Nontender with no deformity. No lesions are appreciated. Cardiovascular: Regular rate and rhythm with a normal S1 and S2. No gallops, murmurs, or rubs. Normal PMI, no JVD. No pulse deficits. Respiratory: Lungs have equal breath sounds bilaterally, clear to auscultation and percussion. No rales, rhonchi or wheezes noted. No increased work of breathing, no retractions or nasal flaring. Abdomen/GI: Soft, non-tender, with normal bowel sounds. No distension or tympany. No guarding or rebound. No evidence of tenderness throughout. Obese abdomen Back: No spinal tenderness. No costovertebral tenderness. Skin: Warm, dry with normal turgor. Generalized pallor with no rashes, no lesions, and no evidence of cellulitis. MS/ Extremity: Pulses equal, no cyanosis. Neurovascular intact. Full, normal range of motion. Neuro: Awake and alert, GCS 15, oriented to person, place, time, and situation. Cranial nerves II-XII grossly intact. Motor strength 5/5 in all extremities. Sensory grossly intact. Psych: Awake, alert, with orientation to person, place and time. Behavior, mood, and affect are within normal limits Vital Signs: 05:26 BP 171 / 100; Pulse 87; Resp 17 S; Temp 98.6(O); Pulse Ox 100% on R/A; Weight 108.86 ha1 kg; Height 5 ft. 5 in. ; 06:00 BP 195 / 89; Pulse 87; Resp 20 S; Pulse Ox 99% on R/A; ha1 06:59 Pulse 74; Resp 20 S; Pulse Ox 99% on R/A; as6 07:27 BP 157 / 103; Pulse 71; Resp 19; Temp 97.3(TE); Pulse Ox 98% on R/A; Pain 0/10; iw 05:26 Body Mass Index 39.94 (108.86 kg, 165.1 cm) ha1 07:27 Pain Scale: Adult iw MDM: 05:33 Patient medically screened. sp4 06:44 Differential Diagnosis altered mental status, sepsis. sp4 06:48 Data reviewed: vital signs, nurses notes, EMS record, old medical records, lab test sp4 result(s), radiologic studies, CT scan. Consideration of Admission/Observation Patient was admitted/placed on observation. Escalation of care including admission/observation considered. Management of patient was discussed with the following: Hospitalist: Discussed with Dr. Mendosa -accepted for admission. End Finder Twisting Department: Discussed with Dr. Younger. ED course: Patient has decreased hemoglobin level 8.5 with active GI bleed, will provide 2 units of packed red blood cells and start transfusion in ER. Patient started on Protonix infusion. Given IV Reglan. Patient at this time warrants admission for upper endoscopy most likely bleeding is from peptic or duodenal ulcer. . 06:57 ED course: PROCEDURE: CTAbdomen and Pelvis Without Intravenous Contrast CLINICAL sp4 INDICATION: The patient is 57 years old and is Female; Upper GI bleeding [facility] MAIN TECHNIQUE: Axial computed tomography images of the abdomen and pelvis without intravenous contrast. Sagittal and coronal reformatted images were created and reviewed. This CT exam was performed using one or more of the following dose reduction techniques: automated exposure control, adjustment of the mA and/or kV according to patient size, and/or use of iterative reconstruction technique. COMPARISON: No relevant prior studies available. FINDINGS: LUNG BASES: Unremarkable. No mass. No consolidation. HEART: Slightly decreased intraventricular attenuation is suggestive of anemia. ABDOMEN: LIVER: Micronodular appearance of the hepatic margin, suspicious for cirrhosis. GALLBLADDER AND BILE DUCTS: Unremarkable. No calcified stones. No ductal dilation. PANCREAS: Unremarkable. No ductal dilation. SPLEEN: Unremarkable. No splenomegaly. ADRENALS: Unremarkable. No mass. KIDNEYS AND URETERS: Unremarkable. No obstructing stones. No hydronephrosis. STOMACH AND BOWEL: Transverse and descending colonic diverticulosis without evidence of acute diverticulitis. No obstruction. PELVIS: APPENDIX: No findings to suggest acute appendicitis. BLADDER: Unremarkable. No stones. REPRODUCTIVE: Presumed hysterectomy versus marked atrophy of the uterus. ABDOMEN and PELVIS: INTRAPERITONEAL SPACE: Unable to evaluate for active hemorrhage in the absence of multiphase pre and postcontrast enhanced imaging. No free air. BONES/JOINTS: Straightening of the normal lordosis of the lumbar spine as the patient is positioned, with multilevel degenerative disc disease, severe at the L4-5 level, with associated moderate to severe narrowing of the right L4-5 neuroforamina. No dislocation. No acute osseous abnormality. SOFT TISSUES: Unremarkable. VASCULATURE: Minimal calcified atherosclerosis of the abdominal aorta without aneurysmal dilatation. LYMPH NODES: Unremarkable. No enlarged lymph nodes. IMPRESSION: 1. Unable to reliably evaluate for active hemorrhage in the absence of multiphase pre and postcontrast enhanced imaging. Allowing for this, no acute abnormality of the abdomen or pelvis. 2. Slightly decreased intraventricular attenuation is suggestive of anemia. 3. Micronodular appearance of the hepatic margin, suspicious for cirrhosis. Clinical correlation recommended. Consider further characterization by ultrasound or MRI hepatic elastography. 4. Straightening of the normal lordosis of the lumbar spine as the patient is positioned, with multilevel degenerative disc disease, severe at the L4-5 level, with associated moderate to severe narrowing of the right L4-5 neuroforamina. 5. Transverse and descending colonic diverticulosis without evidence of acute diverticulitis. . 08/29 05:32 Order name: CBC with Diff 08/29 05:32 Order name: CMP; Complete Time: 06:27 sp4 08/29 05:32 Order name: Lipase; Complete Time: 06:27 4 08/29 05:32 Order name: Urinalysis w/ reflexes 08/29 05:32 Order name: PT-INR; Complete Time: 06:27 [facility] 08/29 06:32 Order name: Type And Screen [facility] 08/29 06:48 Order name: COVID-19 SARS RT PCR [facility] 08/29 06:21 Order name: Abdomen EDMS 08/29 05:32 Order name: IV Saline Lock; Complete Time: 05:40 [facility] 08/29 05:32 Order name: Labs collected and sent; Complete Time: 05:40 [facility] 08/29 06:49 Order name: Labs - recollect needed: type and screen- hemolyzed and short; Complete mc5 Time: 06:55 Administered Medications: 05:47 Drug: Famotidine IVP 20 mg Route: IVP; Site: right antecubital; ha1 06:30 Follow up: Response: No adverse reaction; Nausea is decreased ha1 05:48 Drug: NS 0.9% IV 1000 ml Route: IV; Rate: 1 bolus; Site: right antecubital; ha1 05:50 Drug: metoCLOPramide IVP 10 mg Route: IVP; Site: right antecubital; ha1 06:30 Follow up: Response: No adverse reaction; Nausea is decreased ha1 05:53 Drug: Pantoprazole IVP 80 mg Route: IVP; Site: right antecubital; ha1 07:04 Follow up: Response: No adverse reaction ha1 05:55 Drug: Metoprolol IVP 5 mg Route: IVP; Site: right antecubital; ha1 07:03 Follow up: Response: No adverse reaction ha1 05:58 Drug: Ondansetron IVP 4 mg Route: IVP; Site: right antecubital; ha1 06:35 Follow up: Response: No adverse reaction; Nausea is decreased ha1 06:00 Drug: Rocephin - Rocephin (cefTRIAXone) IVPB 1 grams Route: IVPB; Infused Over: 30 ha1 mins; Site: right antecubital; 07:02 Follow up: Response: No adverse reaction; IV Status: Completed infusion; IV Intake: [id number] 06:05 Drug: Pantoprazole IV 8 mg/hr Route: IV; Rate: 25 ml/hr; Site: right antecubital; ha1 06:55 Drug: Sodium Bicarbonate IVP 1 amp Route: IVP; Site: right antecubital; ha1 06:59 Drug: Calcium Gluconate IVPB 1 grams Route: IVPB; Infused Over: 60 mins; Site: left ha1 antecubital; Disposition Summary: 08/29/22 06:38 Hospitalization Ordered Hospitalization Status: Inpatient Admission sp4 Provider: Den Mendosa sp4 Location: Telemetry/MedSur (Inpatient) sp4 Condition: Stable sp4 Problem: new sp4 Symptoms: are unchanged sp4 Bed/Room Type: Standard sp4 Room Assignment: sp4 Diagnosis - GI Bleed/ Gastrointestinal hemorrhage, unspecified sp4 - Upper GI bleeding, acute renal insufficiency, blood loss anemia, hyperkalemia sp4 Forms: - Medication Reconciliation Form sp4 - SBAR form sp4 Signatures: Dispatcher [employer] EDCarrie Myles RN RN ha1 Baron Hubbard MD MD 4 Lori Levine 5 Corrections: (The following items were deleted from the chart) 06:21 05:33 Abdomen Pelvis W Con+CT.RAD.BRZ ordered. EDMS EDMS
[2022-08-29] MEDS ORDERED: SODIUM BICARB 50 MEQ/50ML VIAL ONE (06:58)
[2022-08-29] MEDS ORDERED: NA CHLORIDE 0.9% 0 ML ONE (06:58)
[2022-08-29] MEDS ORDERED: CALCIUM GLUCONATE 1 GM IVPB 1 GM/50 ML BAG IV ONE (06:58)
[2022-08-29 07:57] LABS: Specific Gravity 1.018 (1.005-1.030); Urine Bacteria >50 /HPF (<20); Urine Bilirubin NEGATIVE (Negative); Urine Blood Trace (Negative); Urine Clarity Extremely Turbid (Clear); Urine Color Light-Yellow (Yellow); Urine Glucose 3+ (Negative); Urine Mucus Slight /HPF (None Seen); Urine Protein 1+ (Negative); Urine Urobilinogen Normal (Normal); Urine pH 5.5 (5.0-7.0)
[2022-08-29 08:18] LABS: Platelet Estimate ADEQ
[2022-08-29 08:19] LABS: Blood Morphology Comment NOT SEEN (NOT SEEN)
[2022-08-29] MEDS ORDERED: INSULIN -REGULAR HUMAN 50 UNIT/0.5 ML ML ONE (08:21)
[2022-08-29] MEDS ORDERED: LIDOCAINE 1% MPF 5 ML VIAL ONE (08:42)
[2022-08-29] MEDS ORDERED: propofoL 200 MG/20 ML VIAL IV ONE ×2 (08:42→09:01)
[2022-08-29] MEDS ORDERED: HYDRALAZINE HCL 20 MG/ML VIAL ONE (08:53)
[2022-08-29] MEDS ORDERED: EPINEPHRINE/PF 1 MG/ML AMP SQ ONE (09:11)
[2022-08-29] MEDS ORDERED: EPINEPHRINE/PF 1 MG/ML AMP ONE (09:51)
[2022-08-29] MEDS ORDERED: MORPHINE 4 MG/ML SYR IV PRN (10:03)
[2022-08-29] MEDS ORDERED: ACETAMINOPHEN 325 MG TABLET PO PRN (10:04)
[2022-08-29] MEDS ORDERED: GLUCAGON 1 MG/VIAL IM PRN ×2 (10:12→16:05)
[2022-08-29] MEDS ORDERED: D50W 25 GM/50 ML SYRINGE IV PRN (10:12)
--- NOTE | 2022-08-29 10:16 | P.HP ---
Certification for Inpatient Patient admitted to: Inpatient With expected LOS: >2 Midnights Patient will require the following post-hospital care: None Practitioner: I am a practitioner with admitting privileges, knowledge of patient current condition, hospital course, and medical plan of care. Services: Services provided to patient in accordance with Admission requirements found in Title 42 Section 412.3 of the Code of Federal Regulations Patient History Date of Service: 08/29/22 Reason for admission: Hematemesis. History of Present Illness: Patient is a 57-year-old female with a past medical history significant for hypertension, DM 2, obesity, tremors, headache who presents with complaint of hematemesis onset yesterday. Patient reported that she has had 4 episodes of hematemesis. Patient reported associated signs and symptoms of headache, nausea and diaphoresis. Patient denies any other signs and symptoms. Symptoms are aggravated or relieved by nothing. Patient decided to present to the hospital for medical evaluation. Allergies diphenhydramine [From Benadryl] Adverse Reaction (Severe, Verified 08/29/22 07:50) Shortness of breath - Past Medical/Surgical History -: HTN -: DM2 -: Obesity -: Hysterectomy -: Right rotator cuff surgery -: Tonsillectomy -: Hysterectomy - Family History mom -: Hypertension, Diabetes dad -: Heart disease, Hypertension, Diabetes - Social History Smoking Status: Never smoker Alcohol use: No CD- Drugs: No Caffeine use: Yes Place of Residence: Home Review of Systems General: Sweats Eyes: Unremarkable ENT: Unremarkable Respiratory: Unremarkable Cardiovascular: Unremarkable Gastrointestinal: Nausea, Other (Hematemesis) Genitourinary: Unremarkable Musculoskeletal: Unremarkable Integumentary: Unremarkable Neurological: Unremarkable Lymphatics: Unremarkable Physical Examination - Vital Signs Temperature: 97.3 F Blood Pressure: 157/103 Pulse: 71 Respirations: 19 - Physical Exam General: Alert, In no apparent distress, Oriented x3, Cooperative HEENT: Atraumatic, PERRLA, Mucous membr. moist/pink, EOMI, Sclerae nonicteric Neck: Supple, 2+ carotid pulse no bruit, No LAD, Without JVD or thyroid abnormality Respiratory: Clear to auscultation bilaterally, Normal air movement Cardiovascular: No edema, Regular rate/rhythm, Normal S1 S2 Capillary refill: <2 Seconds Gastrointestinal: Normal bowel sounds, Non-distended, No tenderness Musculoskeletal: No clubbing, No tenderness Integumentary: No rashes, No significant lesion Neurological: Normal gait, Normal speech, Normal strength at 5/5 x4 extr, Normal tone, Normal affect Lymphatics: No axilla or inguinal lymphadenopathy - Studies Laboratory Data (last 24 hrs) 08/29/22 05:38: PT 10.7, INR 0.97 08/29/22 05:38: Sodium 134 L, Potassium 5.7 H, BUN 30 H, Creatinine 1.91 H, Glucose 251 H, Total Bilirubin 0.2, AST 15, ALT 15, Alkaline Phosphatase 84, Lipase 36 08/29/22 05:38: WBC 16.30 H, Hgb 8.5 L, Hct 27.2 L, Plt Count 397 Assessment and Plan - Plan --Gastrointestinal bleeding. Gastroenterology consulted. EGD pending. Continue Protonix drip. H&H stable. We will continue to monitor hemoglobin and transfuse if less than 7.0. Further management per hooker machine tender. --Suspected liver cirrhosis. CT abdomen indicates Micronodular appearance of the hepatic margin, suspicious for cirrhosis. Clinical correlation recommended. Consider further characterization by ultrasound or MRI hepatic elastography MRI pending for further evaluation. --DM2 with hyperglycemia. BS monitoring with sliding scale insulin. --Hypertension. Poorly controlled. Continue home medications and labetalol as needed. --Leukocytosis. Likely reactive versus secondary to UTI. Blood cultures pending to rule out bacteremia. We will continue to monitor WBC levels. --UTI POA. Patient placed on antibiotics. Urine cultures pending. --Microcytic anemia. Likely compounded by blood loss anemia. H&H stable. We will get some iron studies. Continue supportive care. --Hyperkalemia. We will repeat BMP levels and treat accordingly. --Class III obesity. Likely secondary to excess calories intake. Patient counseled on weight reduction, diet and exercise therapy. -- CKD 3B. Baseline functions unknown. Patient placed on IV hydration. We will continue to monitor renal functions. --Headache. Tylenol as needed. --Tremors. Unclear etiology. Patient reported that she has been having tremors for a couple of months. Plans outpatient follow-up with a neurologist. Continue supportive care. --DVT prophylaxis with SCDs. Discharge Plan: Home Plan to discharge in: Greater than 2 days - Advance Directives Does patient have a Living Will: No Does patient have a Durable POA for Healthcare: No - Code Status/Comfort Care Code Status Assessed: Yes Physician Review: Patient Assessed, Agree with Above Assessment and Plan Critical Care: No
[2022-08-29] MEDS ORDERED: D10W 125 ML IV PRN (10:20)
[2022-08-29 10:30] LABS: Phosphorus 3.8 mg/dL (2.5-4.9)
[2022-08-29 10:31] LABS: Magnesium 1.8 mg/dL (1.6-2.4)
[2022-08-29 10:37] VITALS: BMI 39.9
--- NOTE | 2022-08-29 10:47 | RAD REPORT ---
EXAM DESCRIPTION: CT - Abdomen Pelvis Wo Contrast - 08/29/2022 7:10 am CLINICAL HISTORY: The patient is 57 years old and is Female; Upper GI bleeding [facility] MAIN TECHNIQUE: Axial computed tomography images of the abdomen and pelvis without intravenous contrast. Sagittal and coronal reformatted images were created and reviewed. This CT exam was performed usi ng one or more of the following dose reduction techniques: automated exposure control, adjustment o f the mA and/or kV according to patient size, and/or use of iterative reconstruction technique. COMPARISON: No relevant prior studies available. FINDINGS: LUNG BASES: Unremarkable. No mass. No consolidation. HEART: Slightly decreased intraventricular attenuation is suggestive of anemia. ABDOMEN: LIVER: Micronodular appearance of the hepatic margin, suspicious for cirrhosis. GALLBLADDER AND BILE DUCTS: Unremarkable. No calcified stones. No ductal dilation. PANCREAS: Unremarkable. No ductal dilation. SPLEEN: Unremarkable. No splenomegaly. ADRENALS: Unremarkable. No mass. KIDNEYS AND URETERS: Unremarkable. No obstructing stones. No hydronephrosis. STOMACH AND BOWEL: Transverse and descending colonic diverticulosis without evidence of acute diver ticulitis. No obstruction. PELVIS: APPENDIX: No findings to suggest acute appendicitis. BLADDER: Unremarkable. No stones. REPRODUCTIVE: Presumed hysterectomy versus marked atrophy of the uterus. ABDOMEN and PELVIS: INTRAPERITONEAL SPACE: Unable to evaluate for active hemorrhage in the absence of multiphase pre an d postcontrast enhanced imaging. No free air. BONES/JOINTS: Straightening of the normal lordosis of the lumbar spine as the patient is positioned , with multilevel degenerative disc disease, severe at the L4-5 level, with associated moderate to se kiara narrowing of the right L4-5 neuroforamina. No dislocation. No acute osseous abnormality. SOFT TISSUES: Unremarkable. VASCULATURE: Minimal calcified atherosclerosis of the abdominal aorta without aneurysmal dilatation . LYMPH NODES: Unremarkable. No enlarged lymph nodes. IMPRESSION: 1. Unable to reliably evaluate for active hemorrhage in the absence of multiphase pre and postcontrast enhanced imaging. Allowing for this, no acute abnormality of the abdomen or pelvis. 2. Slightly decreased intraventricular attenuation is suggestive of anemia. 3. Micronodular appearance of the hepatic margin, suspicious for cirrhosis. Clinical correlation recommended. Consider further characterization by ultrasound or MRI hepatic elastography. 4. Straightening of the normal lordosis of the lumbar spine as the patient is positioned, with mult ilevel degenerative disc disease, severe at the L4-5 level, with associated moderate to severe narrow ing of the right L4-5 neuroforamina. 5. Transverse and descending colonic diverticulosis without evidence of acute diverticulitis. Electronically signed by: Amadeo Yadav MD 08/29/2022 6:52 AM CDT Due to temporary technical issues with the PACS/Fluency reporting system, reports are being signed by the in house radiologist without review as a courtesy to ensure prompt reporting. The interpreting r adiologist is fully responsible for the content of the report.
[2022-08-29] MEDS: NA CHLORIDE 0.9% 1,000 ML IV SCH (11:49)
[2022-08-29] MEDS: CEFTRIAXONE 1,000 MG in NA CHLORIDE 0.9% 50 ML IVPB SCH (11:50)
[2022-08-29] MEDS: LABETALOL 20 MG/4ML SYRINGE IV PRN ×2 (11:53→14:17)
[2022-08-29 13:02] LABS: Potassium 5.2 mEq/L (3.5-5.1)
[2022-08-29] MEDS: INSULIN -REGULAR HUMAN 50 UNIT/0.5 ML ML SQ SCH ×3 (13:03→20:21)
[2022-08-29] MEDS: PANTOPRAZOLE INJ 80 MG in NA CHLORIDE 0.9% 250 ML IV SCH ×2 (13:04→22:38)
--- NOTE | 2022-08-29 14:07 | RAD REPORT ---
EXAM DESCRIPTION: US - Liver Only - 08/29/2022 1:56 pm CLINICAL HISTORY: R O Cirrhosis COMPARISON: Abdomen Pelvis Wo Contrast dated 08/29/2022 FINDINGS: The liver demonstrates coarsened echotexture. No significant nodularity at capsule, howev er. No mass identified. No focal liver lesion or intrahepatic biliary dilatation.No evidence of portal vein thrombosis. IMPRESSION: Coarsened echotexture of the liver suggesting cirrhosis.
[2022-08-29] MEDS: ONDANSETRON 4 MG/2 ML VIAL IV PRN (14:14)
[2022-08-29] MEDS ORDERED: INSULIN -REGULAR HUMAN 50 UNIT/0.5 ML ML SQ ONE (16:13)
[2022-08-29] MEDS ORDERED: D10W 250 ML BAG IV PRN (16:15)
[2022-08-30] MEDS: NA CHLORIDE 0.9% 1,000 ML IV SCH ×3 (00:20→20:24)
[2022-08-30 03:24] LABS: Absolute Lymphocytes (CBC) 2.1 K/uL (0.7-4.9); Hematocrit 35.2 % (36.0-45.0); Lymphocytes % 12.7 % (15.3-44.8); MCV 84.4 fL (80-100); MPV 8.9 fL (7.6-11.3); RBC Red Blood Cell Count 4.17 M/uL (3.86-4.86)
[2022-08-30 03:35] LABS: Potassium 4.6 mEq/L (3.5-5.1)
[2022-08-30] MEDS: ONDANSETRON 4 MG/2 ML VIAL IV PRN (04:50)
[2022-08-30] MEDS: INSULIN -REGULAR HUMAN 50 UNIT/0.5 ML ML SQ SCH ×4 (07:30→20:16)
[2022-08-30] MEDS: PANTOPRAZOLE INJ 80 MG in NA CHLORIDE 0.9% 250 ML IV SCH ×2 (08:08→18:13)
[2022-08-30] MEDS: CEFTRIAXONE 1,000 MG in NA CHLORIDE 0.9% 50 ML IVPB SCH (08:09)
[2022-08-30] MEDS: LABETALOL 20 MG/4ML SYRINGE IV PRN ×2 (11:37→20:24)
[2022-08-30 13:57] LABS: Hematocrit 30.2 % (36.0-45.0)
[2022-08-30] MEDS ORDERED: methocarbamoL 500 MG TAB PO PRN (14:12)
--- NOTE | 2022-08-30 14:14 | P.PN ---
Subjective Date of Service: 08/30/22 Chief Complaint: Hematemesis. Patient denies any complaint today. She denies epigastric pain. She has tolerated ice chips and water. She reports 2 episodes of melena overnight. She denies any nausea or vomiting. Physical Examination - Vital Signs Temperature: 97.9 F Blood Pressure: 165/63 Pulse: 73 Respirations: 16 Pulse Ox (%): 99 - Physical Exam General: Alert, In no apparent distress, Oriented x3 HEENT: Mucous membr. moist/pink, Sclerae nonicteric Neck: JVD not distended Respiratory: Clear to auscultation bilaterally, Normal air movement Cardiovascular: No edema, Regular rate/rhythm, Normal S1 S2 Gastrointestinal: Soft and benign, Non-distended, No tenderness Musculoskeletal: No swelling Integumentary: No rashes, No cyanosis Neurological: Normal strength at 5/5 x4 extr Assessment And Plan - Current Problems (Diagnosis) (1) Acute blood loss anemia Current Visit: Yes Status: Acute (2) Upper GI bleed Current Visit: Yes Status: Acute (3) Bleeding gastric ulcer Current Visit: Yes Status: Acute (4) Acute cystitis without hematuria Current Visit: Yes Status: Acute (5) Type II diabetes mellitus Current Visit: Yes Status: Acute (6) Chronic kidney disease, stage 3 Current Visit: Yes Status: Acute - Plan Melena stool likely related to old bleed. Status post EGD done by Dr. Palomares. Patient noted to have a bleeding gastric ulcer Hemoglobin has been relatively stable with monitoring. Patient has tolerated ice chips and water. Continue Protonix drip. Advance diet to clear liquids. Continue to monitor H&H and transfuse as needed for hemoglobin less than 7. Insulin sliding scale for glucose management. Urine culture is growing gram-negative rods. Continue IV Rocephin for UTI. Follow urine culture.
[2022-08-30] MEDS: AMLODIPINE 5 MG TAB PO SCH (15:23)
[2022-08-30] MEDS ORDERED: HOME MED 1 EA UNK (Pravastatin Sodium [Pravastatin Sodium] 80 MG Tablet) PO SCH (21:00)
[2022-08-30] MEDS ORDERED: ATORVASTATIN 10 MG TAB PO SCH (21:00)
[2022-08-30 21:29] VITALS: O2SAT 99
[2022-08-31] MEDS: PANTOPRAZOLE INJ 80 MG in NA CHLORIDE 0.9% 250 ML IV SCH (03:27)
[2022-08-31 04:00] LABS: Potassium 4.2 mEq/L (3.5-5.1)
[2022-08-31] MEDS ORDERED: LEVOTHYROXINE SOD 0.05 MG TABLET PO SCH (06:30)
[2022-08-31] MEDS: INSULIN -REGULAR HUMAN 50 UNIT/0.5 ML ML SQ SCH (07:30)
[2022-08-31] MEDS: AMLODIPINE 5 MG TAB PO SCH (07:46)
[2022-08-31] MEDS: CEFTRIAXONE 1,000 MG in NA CHLORIDE 0.9% 50 ML IVPB SCH (07:46)
[2022-08-31 08:54] VITALS: TEMP 96.9
[2022-08-31] MEDS ORDERED: HOME MED 1 EA UNK (Citalopram Hydrobromide [Citalopram Hbr] 40 MG Tablet) PO SCH (09:00)
[2022-08-31] MEDS ORDERED: HOME MED 1 EA UNK (Levothyroxine Sodium [Levothyroxine Sodium] 50 MCG Capsule) PO SCH (09:00)
[2022-08-31] MEDS ORDERED: CITALOPRAM 10 MG TABLET PO SCH (09:00)
--- NOTE | 2022-08-31 12:20 | P.DS ---
Admission Date: 08/29/22 Discharge Date: 08/31/22 Disposition: ROUTINE DISCHARGE Discharge Condition: FAIR Reason for Admission: Hematemesis. - Problems (1) Acute blood loss anemia Current Visit: Yes Status: Acute (2) Upper GI bleed Current Visit: Yes Status: Acute (3) Bleeding gastric ulcer Current Visit: Yes Status: Acute (4) Acute cystitis without hematuria Current Visit: Yes Status: Acute (5) Type II diabetes mellitus Current Visit: Yes Status: Acute (6) Chronic kidney disease, stage 3 Current Visit: Yes Status: Acute Brief History of Present Illness: Patient is a 57-year-old female with a past medical history significant for hypertension, DM 2, obesity, tremors, headache who presented with complaint of hematemesis. Patient reported that she has had 4 episodes of hematemesis. Patient reported associated signs and symptoms of headache, nausea and diaphoresisn and melena. CT abdomen and pelvis done in the ED was unremarkable except findings suspicious for liver cirrhosis. Blood work showed anemia with hemoglobin of 8.5. Patient was hospitalized for further management. Hospital Course: Patient was admitted to the medical floor, started on Protonix drip. Hemoglobin dropped to 7.6. Patient was given 2 units PRBC transfusion for acute blood loss anemia. Posttransfusion hemoglobin was stable between 9 and 10. She was seen and evaluated by GI Dr. Palomares who performed EGD. EGD demonstrated bleeding gastric ulcer, epinephrine injection done and patient monitored as inpatient. Patient had a couple of melena stools after which her stool cleared. She tolerated clear liquid diet. Patient deemed clinically stable for discharge by GI. She is discharged with Protonix 40 mg twice daily. Vital Signs/Physical Exam: Temp Pulse Resp BP Pulse Ox 96.9 F 73 14 121/93 H 100 08/31/22 08:00 08/31/22 08:00 08/31/22 08:00 08/31/22 08:00 08/31/22 08:00 General: Alert, In no apparent distress, Oriented x3 HEENT: Mucous membr. moist/pink Neck: Supple, JVD not distended Respiratory: Clear to auscultation bilaterally, Normal air movement Cardiovascular: No edema, Regular rate/rhythm, Normal S1 S2, No murmurs Gastrointestinal: Soft and benign, Non-distended, No tenderness Musculoskeletal: No swelling Integumentary: No rashes, No cyanosis Neurological: Normal strength at 5/5 x4 extr Laboratory Data at Discharge: WBC 16.50 thou/uL (4.3-10.9) H 08/30/22 02:42 Hgb 9.4 g/dL (12.0-15.0) L D 08/30/22 13:44 Hct 30.2 % (36.0-45.0) L 08/30/22 13:44 Plt Count 252 thou/uL (152-406) D 08/30/22 02:42 PT 10.7 SECONDS (9.5-12.5) 08/29/22 05:38 INR 0.97 08/29/22 05:38 Sodium 138 mEq/L (136-145) 08/31/22 03:00 Potassium 4.2 mEq/L (3.5-5.1) 08/31/22 03:00 BUN 24 mg/dL (7-18) H 08/31/22 03:00 Creatinine 1.61 mg/dL (0.55-1.02) H 08/31/22 03:00 Glucose 184 mg/dL (74-106) H 08/31/22 03:00 Phosphorus 3.8 mg/dL (2.5-4.9) 08/29/22 05:38 Magnesium 1.8 mg/dL (1.6-2.4) 08/29/22 05:38 Total Bilirubin 0.2 mg/dL (0.2-1.0) 08/29/22 05:38 AST 15 U/L (15-37) 08/29/22 05:38 ALT 15 U/L (13-56) 08/29/22 05:38 Alkaline Phosphatase 84 U/L (45-117) 08/29/22 05:38 Lipase 36 U/L (13-75) 08/29/22 05:38 Home Medications: Citalopram Hydrobromide [Citalopram HBr] 40 mg PO DAILY 08/29/22 Glimepiride 4 mg PO BID 08/29/22 Levothyroxine Sodium 1 cap PO DAILY 08/29/22 Metformin HCl 1,000 mg PO BID 08/29/22 Pravastatin Sodium 80 mg PO BEDTIME 08/29/22 lisinopriL [Lisinopril] 1 tab PO DAILY 08/29/22 methocarbamoL [Methocarbamol] 500 mg PO BEDTIME PRN 08/29/22 Amlodipine [Norvasc*] 5 mg PO DAILY #30 tab 08/31/22 Pantoprazole [Protonix Tab] 40 mg PO BID #60 tab 08/31/22 New Medications: Amlodipine [Norvasc*] 5 mg PO DAILY #30 tab Pantoprazole [Protonix Tab] 40 mg PO BID #60 tab Diet: ADA Activity: Ad dustin Followup: NONE,NONE [Primary Care Provider] - Arsh Palomares MD [ACTIVE - CAN ADMIT] - (Within 2 weeks.) Time spent managing pt's care (in minutes): 36
[2022-08-31 13:20] VITALS: BP 157/80
== END 2022-08-31 14:00 | disposition home or self-care (01) | DRG 378 ==
LOC: ER 05:23 → ERHOLD 08:00 → 2ND 09:10
PROVIDERS: ADMIT Internal Medicine; ATTEND Internal Medicine
PROC: 30233N1 Transfusion of Nonautologous Red Blood Cells into Peripheral Vein, Percutaneous Approach (ICD-10-PCS; 2022-08-29)
PROC: 0W3P8ZZ Control Bleeding in Gastrointestinal Tract, Via Natural or Artificial Opening Endoscopic (ICD-10-PCS; principal; 2022-08-29 08:30)
DX: K25.0 Acute gastric ulcer with hemorrhage (principal); D62 Acute posthemorrhagic anemia; N30.00 Acute cystitis without hematuria; E87.5 Hyperkalemia; K74.60 Unspecified cirrhosis of liver; I12.9 Hypertensive chronic kidney disease with stage 1 through stage 4 chronic kidney disease, or unspecified chronic kidney disease; N18.32 Chronic kidney disease, stage 3b; E11.22 Type 2 diabetes mellitus with diabetic chronic kidney disease; E11.65 Type 2 diabetes mellitus with hyperglycemia; E66.01 Morbid (severe) obesity due to excess calories; R25.1 Tremor, unspecified; Z88.8 Allergy status to other drugs, medicaments and biological substances; Z68.39 Body mass index [BMI] 39.0-39.9, adult; Z79.890 Hormone replacement therapy; Z90.710 Acquired absence of both cervix and uterus; Z20.822 Contact with and (suspected) exposure to COVID-19
CPT/HCPCS: 36415; 74176; 76705; 80048; 80053; 81001; 82728; 82947; 83540; 83690; 83735; 84100; 84466; 85014; 85018; 85025; 85610; 86850; 86900; 86901; 86920; 87040; 87077; 87086; 87088; 87186; 87635; 99285; C9113; J0171; J0360; J0612; J0696; J1815; J2001; J2405; J2704; J2765; J7030; J7050; P9016

== ENCOUNTER 2024-05-27 22:12 | Inpatient (IN) | payer OTHER ==
--- OUTSIDE RECORDS SUMMARY | 2024-05-27 22:17 | XMS REPORT | Continuity of Care Document ---
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 2023-10-08 14:11:00 Refill Marsha Vera [facility] ELO[facility] 1.2.840.114 350.1.13.10 4.2.7.2.686 [id number] [id number] [facility] 2023-09-23 00:00:00 2023-09-23 10:40:04 Refill Marsha Vera [facility]AAL[facility]AH [facility]UVALL?[facility] 1.2.840.114 350.1.13.10 4.2.7.2.686 [id number] 044 [id number] [facility] 2023-09-03 00:00:00 2023-09-04 06:24:28 Refill Marsha Vera [facility] AZLEAALIYAH DUVALL?[facility] 1.2.840.114 350.1.13.10 4.2.7.2.686 [id number] [id number] [facility] 2023-07-24 00:00:00 2023-07-24 06:51:16 Reftaty Vera Marsha [facility] ELOINA?[facility] 1.2.840.114 350.1.13.10 4.2.7.2.686 [id number] [id number] [facility] 2023-07-10 00:00:00 2023-07-10 13:29:31 Telephone Team, [facility] 1.2840.114 350.1.13.10 4.2.7.2.686 [id number] [facility] 2023-05-21 00:00:00 2023-05-21 00:00:00 Refill Rodrigo Marsha [facility] AZLEAALIYAH DUVALL?[facility] 1.2840.114 350.1.13.10 4.2.7.2.686 [id number] [facility] 2023-04-18 00:00:00 2023-04-18 00:00:00 Refill Rodrigo Marsha [facility] AZLEAALIYAH DUVALL?[facility] 1.2.840.114 350.1.13.10 4.2.7.2.686 [id number] [facility] 2023-03-08 00:00:00 2023-03-08 00:00:00 Reftaty Vera [facility] ELOINA?[facility] 1.114 350.1.13.10 4.2.7.2.686 [id number] [facility] 2022-12-25 00:00:00 2022-12-25 00:00:00 [facility] 1.114 350.1.13.10 4.2.7.2.686 [id number] [facility] 2022-12-03 11:40:00 2022-12-03 11:40:00 Outpatient RAQUEL TERRAZAS [facility] [id number] [facility] 2022-11-30 00:00:00 2022-11-30 00:00:00 Patient Secure Msg Doctor Unassigned, [place] [facility] 1.114 350.1.13.10 4.2.7.2.686 [id number] [facility] 2022-11-23 00:00:00 2022-11-23 00:00:00 Orders Only Doctor Unassigned, [place] [facility] 1.0.114 350.1.13.10 4.2.7.2.686 [id number] [facility] 2022-11-08 09:30:00 2022-11-08 09:45:00 Knockdown Man Visit Lab, Jono Graham Rodrigo [facility] LEOINA?[facility] 1..114 350.1.13.10 4.2.7.2.686 [id number] [facility] 2022-11-08 09:30:00 2022-11-08 09:43:57 Outpatient [facility] [id number] [facility] 2022-11-06 08:00:00 2022-11-06 08:00:00 [facility] [id number] [facility] 2022-11-05 11:00:00 2022-11-05 11:00:00 Outpatient RAQUEL TERRAZAS [facility] [id number] [facility] 2022-11-02 00:00:00 2022-11-02 00:00:00 Orders Only Doctor Unassigned, [place] [facility] 1.840.114 350.1.13.10 4.2.7.2.686 [id number] [facility] 2022-10-20 00:00:00 2022-10-20 00:00:00 Refill Rodrigo [facility] ELOINA?[facility] 1.2.840.114 350.1.13.10 4.2.7.2.686 [id number] [facility] 2022-10-03 00:00:00 2022-10-03 00:00:00 Refill Rodrigo [facility] ELOINA?[facility] 1.2.840.114 350.1.13.10 4.2.7.2.686 [id number] [facility] 2022-09-28 00:00:00 2022-09-28 00:00:00 Telephone Rodrigo [facility] ELOINA?[facility] 1.2.840.114 350.1.13.10 4.2.7.2.686 [id number] [id number] [facility] 2022-09-28 00:00:00 2022-09-28 00:00:00 Orders Only Doctor Unassigned, [place] [facility] 1.2840.114 350.1.13.10 4.2.7.2.686 [id number] [facility] 2022-09-20 12:00:00 2022-09-20 12:15:00 Office Visit Rodrigo [facility] ELOINA?[facility] 1.20.114 350.1.13.10 4.2.7.2.686 [id number] [id number] [facility] 2022-09-20 12:00:00 2022-09-20 12:00:00 Outpatient R MARSHA [facility] [id number] [facility] 2022-09-20 00:00:00 2022-09-20 00:00:00 Orders Only Doctor Unassigned, [place] [facility] 1.20.114 350.1.13.10 4.2.7.2.686 [id number] [facility] 2022-09-11 00:00:00 2022-09-11 00:00:00 Refill Vera [facility] ELOINA?[facility] 1.114 350.1.13.10 4.2.7.2.686 [id number] [facility] 2022-08-09 00:00:00 2022-08-09 00:00:00 Refill Rodrigo [facility] 1..114 350.1.13.10 4.2.7.2.686 [id number] [facility] 2022-07-24 00:00:00 2022-07-24 00:00:00 Refill Vera [facility] ELOINA?[facility] 1..114 350.1.13.10 4.2.7.2.686 [id number] [id number] [facility] 2022-07-22 00:00:00 2022-07-22 00:00:00 [facility] 1.2840.114 350.1.13.10 4.2.7.2.686 [id number] 044 [id number] [facility] 2022-07-12 00:00:00 2022-07-12 00:00:00 [facility] 1..114 350.1.13.10 4.2.7.2.686 [id number] 044 [id number] [facility] 2022-06-10 00:00:00 2022-06-10 00:00:00 Refill [facility] 1.0.114 350.1.13.10 4.2.7.2.686 [id number] [id number] [facility] 2022-06-08 00:00:00 2022-06-08 00:00:00 Refill Enoch [facility]aur [facility] 1.0.114 350.1.13.10 4.2.7.2.686 [id number] [facility] 2022-05-27 00:00:00 2022-05-27 00:00:00 Refill Rodrigo Marsha [facility] AZLEAAL[facility]YAH DUVALL?[facility] 1..114 350.1.13.10 4.2.7.2.686 [id number] 044 [id number] [facility] 2022-05-20 00:00:00 2022-05-20 00:00:00 Refill Marsha Vera [facility] AZLEAALIYAH DUVALL?[facility] 1.284.114 350.1.13.10 4.2.7.2.686 [id number] 044 [id number] [facility] 2022-05-14 00:00:00 2022-05-14 00:00:00 Refill Enoch Kaur [facility] AZLEAALI[facility]AH DUVALL?[facility] 1.2840.114 350.1.13.10 4.2.7.2.686 [id number] [facility] 2022-04-24 00:00:00 2022-04-24 00:00:00 Refill Marsha Vera [facility] AZLEAALIYAH DUVALL?[facility] 1.2840.114 350.1.13.10 4.2.7.2.686 [id number] 044 [id number] [facility] 2022-04-20 00:00:00 2022-04-20 00:00:00 Refill Marsha Vera [facility] AZ[facility]AAL[facility]AH DUVALL?[facility] 1.2840.114 350.1.13.10 4.2.7.2.686 [id number] 044 [id number] [facility] 2022-03-29 00:00:00 2022-03-29 00:00:00 Refill Rodrigo [facility] 1.20.114 350.1.13.10 4.2.7.2.686 [id number] 044 [id number] [facility] 2022-03-03 00:00:00 2022-03-03 00:00:00 Refill Rodrigo Marsha [facility] AZLEAALIYAH DALEE?[facility] 1.2840.114 350.1.13.10 4.2.7.2.686 [id number] 044 [id number] [facility] 2022-02-20 00:00:00 2022-02-20 00:00:00 Refill Rodrigo [facility] 1.2.840.114 350.1.13.10 4.2.7.2.686 [id number] [facility] 2022-02-19 00:00:00 2022-02-19 00:00:00 Telephone Marsha Vera [facility] AZ[facility]AAL[facility]AH [facility]UVALL?[facility] 1.2.840.114 350.1.13.10 4.2.7.2.686 [id number] 044 [id number] [facility] 2022-02-12 00:00:00 2022-02-12 00:00:00 Refill Marsha Vera [facility] AZLEAALIYAH DUVALL[facility] 1.2.840.114 350.1.13.10 4.2.7.2.686 [id number] [facility] 2021-12-26 00:00:00 2021-12-26 00:00:00 Refill Rodrigo [facility] 1.2.840.114 350.1.13.10 4.2.7.2.686 [id number] 044 [id number] [facility] 2021-12-21 00:00:00 2021-12-21 00:00:00 [facility]Lizzy [facility] Center[facility] 1.2.840.114 350.1.13.10 4.2.7.2.686 [id number] 044 [id number] [facility] 2021-12-02 00:00:00 2021-12-02 00:00:00 Refill Marsha Vera [facility] AZ[facility]AAL[facility]AH DUVALL?[facility] 1.2.840.114 350.1.13.10 4.2.7.2.686 [id number] 044 [id number] [facility] 2021-11-21 00:00:00 2021-11-21 00:00:00 Refill Rodrigo [facility] 1..840.114 350.1.13.10 4.2.7.2.686 [id number] 044 [id number] [facility] 2021-11-14 00:00:00 2021-11-14 00:00:00 Refill Marsha Vera [facility] E[facility] 1..840.114 350.1.13.10 4.2.7.2.686 [id number] 044 [id number] [facility] 2021-10-20 00:00:00 2021-10-20 00:00:00 Reftaty Vera Marsha [facility] ELOINA?[facility] 1..840.114 350.1.13.10 4.2.7.2.686 [id number] [facility] 2021-09-25 15:45:00 2021-09-25 16:00:00 Office Visit Enoch Kaur [facility] ELOINA?[facility] 1..840.114 350.1.13.10 4.2.7.2.686 [id number] 044 [id number] [facility] 2021-09-25 15:45:00 2021-09-25 15:57:56 Outpatient [facility] [id number] [facility] 2021-09-25 15:45:00 2021-09-25 15:45:00 Outpatient [facility] [id number] [facility] 2021-08-03 00:00:00 2021-08-03 00:00:00 Refill Rodrigo [facility] ELOINA?[facility] 1..840.114 350.1.13.10 4.2.7.2.686 [id number] [id number] [facility] 2021-07-04 22:24:00 2021-07-06 19:44:00 Outpatient X CARLOS MANUEL, RANDALL [facility] [id number] [facility] 2021-07-04 22:24:00 2021-07-06 19:44:00 Emergency Cedrick Devine, Bryson Mcmahan, Randall Streeter [facility] 1.2840.114 350.1.13.10 4.2.7.2.686 [id number] [facility] 2021-07-05 10:15:00 2021-07-05 10:15:00 Outpatient R MARSHA [facility] [id number] [facility] 2021-07-03 00:00:00 2021-07-03 00:00:00 Telephone Rodrigo [facility] ELOINA?[facility] 1.2840.114 350.1.13.10 4.2.7.2.686 [id number] [facility] 2021-06-27 00:00:00 2021-06-27 00:00:00 Refill Rodrigo [facility] ELOINA?[facility] 1.2840.114 350.1.13.10 4.2.7.2.686 [id number] 044 [id number] [facility] 2021-06-27 00:00:00 2021-06-27 00:00:00 [facility]phone [facility] 1.2840.114 350.1.13.10 4.2.7.2.686 [id number] [id number] [facility] 2021-06-15 00:00:00 2021-06-15 00:00:00 Refill oRdrigo [facility] ELOINA?[facility] 1.2.840.114 350.1.13.10 4.2.7.2.686 [id number] 044 [id number] [facility] 2021-06-10 00:00:00 2021-06-10 00:00:00 Refill Rodrigo [facility] ELOINA?[facility] 1.284.114 350.1.13.10 4.2.7.2.686 [id number] 044 [id number] [facility] 2021-06-06 00:00:00 2021-06-06 00:00:00 Telephone Rodrigo [facility] ELOINA?[facility] 1.284.114 350.1.13.10 4.2.7.2.686 [id number] [facility] 2021-06-03 09:48:00 2021-06-03 13:39:00 Emergency X Cristina JAMSE [facility] E[facility] [id number] [facility] 2021-06-03 09:48:00 2021-06-03 13:39:00 Emergency Cristina James [facility] 1.84.114 350.1.13.10 4.2.7.2.686 [id number] [facility] 2021-05-31 00:00:00 2021-05-31 00:00:00 Refill Rodrigo [facility] ELOINA?[facility] 1.84.114 350.1.13.10 4.2.7.2.686 [id number] [id number] [facility] 2021-05-24 13:30:00 2021-05-24 13:45:00 Office Visit Rodrigo [facility] ELOINA?[facility] 1.284.114 350.1.13.10 4.2.7.2.686 [id number] [id number] [facility] 2021-05-24 13:30:00 2021-05-24 13:30:00 [facility] [id number] 2021-05-19 00:00:00 2021-05-19 00:00:00 Telephone Lizzy [facility] 1.840.114 350.1.13.10 4.2.7.2.686 [id number] [id number] [facility] 2021-04-03 14:00:00 2021-04-03 14:15:00 Office Visit Vera Marsha [facility] ELOINA?[facility] 1.114 350.1.13.10 4.2.7.2.686 [id number] [facility] 2021-04-03 14:00:00 2021-04-03 14:00:00 Outpatient R MARSHA [facility] [id number] [facility] 2021-04-03 14:00:00 2021-04-03 14:00:00 Outpatient R MARSHA [facility] [id number] [facility] 2021-04-03 00:00:00 2021-04-03 00:00:00 Orders Only Doctor Unassigned, [place] [facility] 1..114 350.1.13.10 4.2.7.2.686 [id number] [facility] 2021-03-31 00:00:00 2021-03-31 00:00:00 Letter (Out) Marsha Vera [facility] ELOINA?RUPAL OJAI [facility] 1..114 350.1.13.10 4.2.7.2.686 [id number] [facility] 2021-03-21 00:00:00 2021-03-21 00:00:00 [facility] 1..114 350.1.13.10 4.2.7.2.686 [id number] [facility] 2021-03-04 00:00:00 2021-03-04 00:00:00 Brock Vera [facility] OFFICE BUILDING ONE 1.2.840.114 350.1.13.10 4.2.7.2.686 [id number] [facility] 2021-02-10 00:00:00 2021-02-10 00:00:00 Brock Vera [facility] OFFICE BUILDING ONE 1.2.840.114 350.1.13.10 4.2.7.2.686 [id number] [id number] [facility] 2021-01-04 00:00:00 2021-01-04 00:00:00 Brock Vera [facility] OFFICE BUILDING ONE 1.2.840.114 350.1.13.10 4.2.7.2.686 [id number] [id number] [facility] 2020-12-29 00:00:00 2020-12-29 00:00:00 Brock Vera [facility] OFFICE BUILDING ONE 1.2.840.114 350.1.13.10 4.2.7.2.686 [id number] [id number] [facility] 2020-12-10 00:00:00 2020-12-10 00:00:00 Brock Vera [facility] Office Building One 1.2.840.114 350.1.13.10 4.2.7.2.686 [id number] [id number] [facility] 2020-11-25 00:00:00 2020-11-25 00:00:00 Brock Vera [facility] Office Building One 1.2.840.114 350.1.13.10 4.2.7.2.686 [id number] [id number] [facility] 2020-10-06 00:00:00 2020-10-06 00:00:00 Refill Marsha Vera [facility] Office Building One 1.840.114 350.1.13.10 4.2.7.2.686 [id number] [id number] [facility] 2020-09-02 00:00:00 2020-09-02 00:00:00 Refill Marsha Vera [facility] ER Office Building One 1.0.114 350.1.13.10 4.2.7.2.686 [id number] [id number] [facility] 2020-08-16 00:00:00 2020-08-16 00:00:00 Case Management Kalpana Uribe 1.840.114 350.1.13.10 4.2.7.2.686 [id number] [facility] 2020-08-06 00:00:00 2020-08-06 00:00:00 Refill Rodrigo [facility] Office Building One 1.840.114 350.1.13.10 4.2.7.2.686 [id number] [id number] [facility] 2020-07-04 00:00:00 2020-07-04 00:00:00 Refill Rodrgio Marsha [facility] ER Office Building One 1.0.114 350.1.13.10 4.2.7.2.686 [id number] [id number] [facility] 2020-06-08 13:42:24 2020-06-08 13:57:24 Office Visit Rodrigo [facility] Office Building One 1.840.114 350.1.13.10 4.2.7.2.686 [id number] [id number] [facility] 2020-06-08 13:45:00 2020-06-08 13:45:00 Outpatient R MARSHA [facility] [id number] [facility] 2020-06-02 14:15:00 2020-06-02 14:15:00 Outpatient MARSHA [facility] [id number] [facility] 2020-06-02 00:00:00 2020-06-02 00:00:00 Telephone Rodrigo Marsha [facility] Office [facility] 1.840.114 350.1.13.10 4.2.7.2.686 [id number] [facility] 2020-05-24 00:00:00 2020-05-24 00:00:00 Refill Rodrigo [facility] 1.840.114 350.1.13.10 4.2.7.2.686 [id number] [facility] 2020-05-20 00:00:00 2020-05-20 00:00:00 Reftaty Vera [facility] 1.840.114 350.1.13.10 4.2.7.2.686 [id number] [facility] 2020-04-30 00:00:00 2020-04-30 00:00:00 Patient Outreach Randall Mcmahan [facility] 1.840.114 350.1.13.10 4.2.7.2.686 [id number] [facility] 2020-04-21 00:00:00 2020-04-21 00:00:00 Reftaty Vera [facility] .840.114 350.1.13.10 4.2.7.2.686 [id number] [facility] 2020-03-19 00:00:00 2020-03-19 00:00:00 [facility] 1.2.840.114 350.1.13.10 4.2.7.2.686 [id number] [facility] 2020-02-20 00:00:00 2020-02-20 00:00:00 Refill Marsha Vera [facility] 1.2.840.114 350.1.13.10 4.2.7.2.686 [id number] [facility] 2020-01-21 00:00:00 2020-01-21 00:00:00 Refill Rodrigo [facility] 1.2.840.114 350.1.13.10 4.2.7.2.686 [id number] [facility] 2020-01-19 00:00:00 2020-01-19 00:00:00 Refill Rodrigo [facility] 1.2.840.114 350.1.13.10 4.2.7.2.686 [id number] [facility] 2019-12-17 00:00:00 2019-12-17 00:00:00 Refill Rodrigo Marsha [facility] 1.2.840.114 350.1.13.10 4.2.7.2.686 [id number] [facility] 2019-11-15 00:00:00 2019-11-15 00:00:00 Refill Rodrigo [facility] 1.2.840.114 350.1.13.10 4.2.7.2.686 [id number] [id number] [facility] 2019-10-18 00:00:00 2019-10-18 00:00:00 Refill Rodrigo [facility] 1..114 350.1.13.10 4.2.7.2.686 [id number] [facility] 2019-09-13 00:00:00 2019-09-13 00:00:00 Refill Rodrigo [facility] 1.2114 350.1.13.10 4.2.7.2.686 [id number] [facility] 2019-08-19 08:30:00 2019-08-19 23:59:00 Hospital Encounter Graeme Wong [facility] 1.284.114 350.1.13.10 4.2.7.2.686 [id number] [facility] 2019-08-19 16:15:00 2019-08-19 16:15:00 Outpatient R [facility]RAEME [facility] [id number] [facility] 2019-08-19 14:40:25 2019-08-19 15:06:52 Office Visit Graeme Wong [facility] 1..840.114 350.1.13.10 4.2.7.2.686 [id number] [facility] 2019-08-17 15:45:00 2019-08-17 15:45:00 Outpatient R [facility]RAEME [facility] [id number] [facility] 2019-08-17 00:00:00 2019-08-17 00:00:00 Telephone WongGraeme moore [facility] Surgical Special rachel [place] 1.2840.114 350.1.13.10 4.2.7.2.686 [id number] [facility] 2019-08-16 00:00:00 2019-08-16 00:00:00 Refill Rodrigo [facility] 1.114 350.1.13.10 4.2.7.2.686 [id number] [facility] 2019-07-13 00:00:00 2019-07-13 00:00:00 [facility] 1..114 350.1.13.10 4.2.7.2.686 [id number] [facility] 2019-06-09 00:00:00 2019-06-09 00:00:00 Refill Rodrigo [facility] 1..114 350.1.13.10 4.2.7.2.686 [id number] [facility] 2019-05-15 11:30:00 2019-05-15 11:30:00 Outpatient R MARSHA [facility] [id number] [facility] 2019-05-12 09:30:00 2019-05-12 09:30:00 Outpatient R MARSHA [facility] [id number] [facility] 2019-05-12 06:54:57 2019-05-12 07:09:57 Telemedici ne Visit Rodrigo [facility] .114 350.1.13.10 4.2.7.2.686 [id number] [facility] 2019-05-12 00:00:00 2019-05-12 00:00:00 Telephone Rodrigo [facility] 1..114 350.1.13.10 4.2.7.2.686 [id number] [facility] 2019-05-12 00:00:00 2019-05-12 00:00:00 Refill Rodrigo [facility] 1.2.840.114 350.1.13.10 4.2.7.2.686 [id number] [facility] 2019-04-12 00:00:00 2019-04-12 [facility]:00[facility] 1.2.840.114 350.1.13.10 4.2.7.2.686 [id number] [facility] 2019-04-06 00:00:00 2019-04-06 00:00:00 [facility] 1.2.840.114 350.1.13.10 4.2.7.2.686 [id number] [facility] 2019-03-16 00:00:00 2019-03-16 00:00:00 [facility] 1.2.840.114 350.1.13.10 4.2.7.2.686 [id number] [facility] 2019-03-10 00:00:00 2019-03-10 00:00:00 Brock Vera [facility] 1.2.840.114 350.1.13.10 4.2.7.2.686 [id number] [facility] Notes Date/Time Note Provider Source 2024-02-25 14:30:52 Please review and advise. MAURICE 02/24/[address] [facility] 2024-02-25 12:17:04 Deedee Montano is a 58 year old female calling to get orders for mammogram placed so she can get this scheduled. States this was discuss at office visit yesterday. Please call [phone] . [facility] Ronen Bhatia [facility] 2024-02-25 11:00:00 Images from the original note were not included. Venipuncture collection performed by clean technique on the right anticubitus. Total of 1 attempts were made. Slight pressure and a bandage/dressing were applied to the site(s). The patient experienced no complications. The following specimens were processed according to instructions and sent to [facility] laboratories per lab order on 02/25/2024 : LT BLUE SST 1 RED LAV 1 PPT DK GREEN (LiHep) DK GREEN (SodH) ANDREW DK BLUE (K2) DK BLUE (S) ACD Blood Culture NIPT/NTD [facility] 2024-01-30 14:49:58 Images from the original note were not included. Notes: MUST BE SEEN FOR FURTHER REFILLS Last Refilled: Name from pharmacy: METFORMIN HCL 1,000 MG TABLET Will file in chart as: METFORMIN 1,000 mg tablet Sig: TAKE 1 TABLET BY MOUTH 2 TIMES A DAY IN THE MORNING AND IN THE EVENING Disp: 60 tablet Refills: 0 (Pharmacy requested: Not specified) Start: 01/30/2024 Class: eRX For: Type 2 diabetes mellitus with diabetic neuropathy, without long-term current use of insulin Last ordered: 3 weeks ago (01/08/2024) by Marsha Vera MD Last refill: 01/09/2024 Rx #: [id number] Endocrinology: Diabetes - Biguanides Lgfzhb0001/30/2024 09:16 AM Protocol Details Valid encounter within last 12 months Cr is between 0 and 1.3 and within 360 days HBA1C within 180 days To be filled at: [facility] [id number] [address] Recent Visits Date Type Provider Dept 09/20/22 Office Visit Marsha Vera MD [facility] Showing recent visits within past 540 days with a meds authorizing provider and meeting all other requirements Future Appointments Date Type Provider Dept 02/24/24 Appointment Marsha Vera MD [facility] Showing future appointments within next 150 days with a meds authorizing provider and meeting all other requirements TESTER iRzwana Briscoe MA [facility] 2024-01-08 11:37:52 Images from the original note were not included. Notes: 11/18/23 Last Refilled: [facility] [id number] [place] [address] Recent Visits Date Type Provider Dept 09/20/22 Office Visit Marsha Vera MD [facility] Showing recent visits within past 540 days with a meds authorizing provider and meeting all other requirements Future Appointments Date Type Provider Dept 02/24/24 Appointment Marsha Vera MD [facility] Showing future appointments within next 150 days with a meds authorizing provider and meeting all other requirements Name from pharmacy: METHOCARBAMOL 500 MG TABLET Will file in chart as: METHOCARBAMOL 500 mg tablet Possible duplicate: Hover to review recent actions on this medication Sig: TAKE 1 TABLET BY MOUTH 4 TIMES A DAY NEEDED FOR PAIN Disp: 40 tablet Refills: 0 (Pharmacy requested: Not specified) Start: 01/08/2024 Class: eRX For: Chronic bilateral low back pain with sciatica, sciatica laterality unspecified Last ordered: 1 month ago (11/18/2023) by Marsha Vera MD Last refill: 11/18/2023 Rx #: [id number] Provider Review Required - Methocarbamol Hecvid2801/08/2024 01:06 AM Protocol Details Valid encounter within last 12 months This refill cannot be delegated Manual Review: Methocarbamol for ortho staff to refill only Name from pharmacy: METFORMIN HCL 1,000 MG TABLET Will file in chart as: METFORMIN 1,000 mg tablet Possible duplicate: Hover to review recent actions on this medication Sig: TAKE 1 TABLET BY MOUTH EVERY MORNING AND TAKE ONE TABLET BY MOUTH EVERY EVENING Disp: 60 tablet Refills: 0 (Pharmacy requested: Not specified) Start: 01/08/2024 Class: eRX For: Type 2 diabetes mellitus with diabetic neuropathy, without long-term current use of insulin Last ordered: 1 month ago (11/18/2023) by Marsha Vera MD Last refill: 11/18/2023 Rx #: [id number] Endocrinology: Diabetes - Biguanides Ryzwor4001/08/2024 01:06 AM Protocol Details Valid encounter within last 12 months Cr is between 0 and 1.3 and within 360 days HBA1C within 180 days To be filled at: [facility] [id number] [facility] 2023-12-31 11:15:52 Patient has set up an appointment until 02/24/24, she stated that she is unable to pay copay and doesn't have a ride to get to an appointment soon. She wants to know if she can get refills to hold her up until then, if unable to fill all, she would really need amlodipine refilled. Please call pt to [phone] with any questions. BERTO Mock [facility] 2023-12-31 10:39:11 Images from the original note were not included. Patient needs office visit Notes: 11/18/23 Last Refilled: [facility] [id number] Recent Visits Date Type Provider Dept 09/20/22 Office Visit Marsha Vera MD [facility] Showing recent visits within past 540 days with a meds authorizing provider and meeting all other requirements Future Appointments No visits were found meeting these conditions. Showing future appointments within next 150 days with a meds authorizing provider and meeting all other requirements Name from pharmacy: amLODIPine BESYLATE 5 MG TAB Will file in chart as: AMLODIPINE 5 mg tablet Sig: TAKE 1 TABLET BY MOUTH EVERY MORNING Disp: 30 tablet Refills: 0 (Pharmacy requested: Not specified) Start: 12/30/2023 Class: eRX For: Primary hypertension Last ordered: 1 month ago (11/18/2023) by Marsha Vera MD Last refill: 11/18/2023 Rx #: [id number] Calcium Channel Blockers Dizkuq9212/30/2023 12:03 PM Protocol Details Valid encounter within last 12 months Name from pharmacy: PRAVASTATIN SODIUM 80 MG TAB Will file in chart as: PRAVASTATIN 80 mg tablet Sig: TAKE 1 TABLET BY MOUTH AT BEDTIME Disp: 30 tablet Refills: 0 (Pharmacy requested: Not specified) Start: 12/30/2023 Class: eRX For: Hyperlipidemia, unspecified hyperlipidemia type Last ordered: 1 month ago (11/18/2023) by Marsha Vera MD Last refill: 11/18/2023 Rx #: [id number] Cardiovascular: Antilipid - HMG-CoA Reductase Inhibitors Untrjl7612/30/2023 12:03 PM Protocol Details Valid encounter within last 12 months Total Cholesterol within 360 days LDL within 360 days HDL within 360 days Triglycerides within 360 days AST in normal range and within 360 days ALT in normal range and within 360 days Name from pharmacy: METHOCARBAMOL 500 MG TABLET Will file in chart as: METHOCARBAMOL 500 mg tablet Sig: TAKE 1 TABLET BY MOUTH 4 TIMES A DAY NEEDED FOR PAIN Disp: 40 tablet Refills: 0 (Pharmacy requested: Not specified) Start: 12/30/2023 Class: eRX For: Chronic bilateral low back pain with sciatica, sciatica laterality unspecified Last ordered: 1 month ago (11/18/2023) by Marsha Vera MD Last refill: 11/18/2023 Rx #: [id number] Provider Review Required - Methocarbamol Ygowuk4412/30/2023 12:03 PM Protocol Details Valid encounter within last 12 months This refill cannot be delegated Manual Review: Methocarbamol for ortho staff to refill only Name from pharmacy: METFORMIN HCL 1,000 MG TABLET Will file in chart as: METFORMIN 1,000 mg tablet Sig: TAKE 1 TABLET BY MOUTH EVERY MORNING AND TAKE ONE TABLET BY MOUTH EVERY EVENING Disp: 60 tablet Refills: 0 (Pharmacy requested: Not specified) Start: 12/30/2023 Class: eRX For: Type 2 diabetes mellitus with diabetic neuropathy, without long-term current use of insulin Last ordered: 1 month ago (11/18/2023) by Marsha Vera MD Last refill: 11/18/2023 Rx #: [id number] Endocrinology: Diabetes - Biguanides Kkkyef1012/30/2023 12:03 PM Protocol Details Valid encounter within last 12 months Cr is between 0 and 1.3 and within 360 days HBA1C within 180 days To be filled at: [facility] [id number] [address] [facility] 2023-11-18 12:50:28 Last Refilled: Disp Refills Start End AYUSH AMLODIPINE 5 mg tablet 30 tablet 0 10/08/2023 -- No Sig: TAKE 1 TABLET BY MOUTH EVERY MORNING Sent to pharmacy as: amLODIPine 5 mg tablet (NORVASC) Class: eRX Route: Oral Order: [id number] Date/Time Signed: 10/08/2023 14:10 E-Prescribing Status: Receipt confirmed by pharmacy (10/08/2023 2:11 PM CDT) Disp Refills Start End AYUSH METFORMIN 1,000 mg tablet 60 tablet 0 10/08/2023 -- No Sig: TAKE 1 TABLET BY MOUTH 2 TIMES A DAY IN THE MORNING AND IN THE EVENING Sent to pharmacy as: metFORMIN 1,000 mg tablet (GLUCOPHAGE) Class: eRX Order: [id number] Date/Time Signed: 10/08/2023 14:10 E-Prescribing Status: Receipt confirmed by pharmacy (10/08/2023 2:11 PM CDT) Disp Refills Start End AYUSH METHOCARBAMOL 500 mg tablet 40 tablet 0 10/08/2023 -- No Sig: TAKE 1 TABLET BY MOUTH 4 TIMES A DAY NEEDED FOR PAIN Sent to pharmacy as: methocarbamoL 500 mg tablet (ROBAXIN) Class: eRX Order: [id number] Date/Time Signed: 10/08/2023 14:10 E-Prescribing Status: Receipt confirmed by pharmacy (10/08/2023 2:11 PM CDT) Disp Refills Start End AYUSH PRAVASTATIN 80 mg tablet 30 tablet 0 10/08/2023 -- No Sig: TAKE 1 TABLET BY MOUTH AT BEDTIME Sent to pharmacy as: pravastatin 80 mg tablet (PRAVACHOL) Class: eRX Route: Oral Order: [id number] Date/Time Signed: 10/08/2023 14:10 E-Prescribing Status: Receipt confirmed by pharmacy (10/08/2023 2:11 PM CDT) Recent Visits Date Type Provider Dept 09/20/22 Office Visit Marsha Vera MD [facility] Showing recent visits within past 540 days with a meds authorizing provider and meeting all other requirements Future Appointments No visits were found meeting these conditions. Showing future appointments within next 150 days with a meds authorizing provider and meeting all other requirements Ann Garcia [facility] 2023-09-03 10:58:15 Recent Visits Date Type Provider Dept 09/20/22 Office Visit Marsha Vera MD [facility] Showing recent visits within past 540 days with a meds authorizing provider and meeting all other requirements Future Appointments No visits were found meeting these conditions. Showing future appointments within next 150 days with a meds authorizing provider and meeting all other requirements Last refill was METHOCARBAMOL 500 mg tablet 40 tablet 0 07/24/2023 [facility] 2023-07-24 06:50:01 Last Refilled: Disp Refills Start End AYUSH METHOCARBAMOL 500 mg tablet 40 tablet 0 2023 -- No Sig: TAKE 1 TABLET BY MOUTH 4 TIMES A DAY NEEDED FOR PAIN Sent to pharmacy as: methocarbamoL 500 mg tablet (ROBAXIN) Class: eRX Order: [id number] Date/Time Signed: 2023 07:18 E-Prescribing Status: Receipt confirmed by pharmacy (2023 7:18 AM CDT) Recent Visits Date Type Provider Dept 09/20/22 Office Visit Marsha Vera MD [facility] Showing recent visits within past 540 days with a meds authorizing provider and meeting all other requirements Future Appointments No visits were found meeting these conditions. Showing future appointments within next 150 days with a meds authorizing provider and meeting all other requirements Ann Garcia [facility] 2023-07-10 13:25:50 07/10/23 Health Maintenance Team contacted patient to assist in completing Health Maintenance topics that are overdue. Deedee Mantillaeron [id number] Attempt Number: 1st attempt Health Maintenance topics addressed: Health Maintenance Due Topic Date Due Medicare Wellness Visit Never done EYE EXAM Never done HIV Screening Never done SDOH Financial Resource Strain Never done SDOH Food Insecurity Never done SDOH Transportation Needs Never done FOOT EXAM Never done HEPATITIS C (HCV) SCREEN Never done DTaP,Tdap,and Td Vaccines (1 - Tdap) Never done Cervical Cancer Screening Never done Colorectal Cancer Screening Never done Zoster Recombinant Vaccine (SHINGRIX) (1 of 2) Never done URINE MICROALBUMIN 06/02/2016 Breast Cancer Screening (Mammogram) 08/20/2017 INFLUENZA VACCINE (1) Never done SARS-CoV-2 (COVID-19) Vaccine (1 - season) Never done HgA1C 05/09/2023 Call outcome: Attempted to contact patient regarding overdue mammogram. Left voicemail for patient to return phone call ). Cruz Caro [facility] 2023 07:17:13 Last Refilled: gabapentin 300 mg [id number] /3/2023--NoSig: TAKE ONE CAPSULE BY MOUTH EVERY MORNING AND AT NOON AND IN EVENINGSent to pharmacy as: gabapentin 300 mg capsule (NEURONTIN)Class: eRXOrder: [id number]/Time Signed: 09/20/2022 12:13E-Prescribing Status: Receipt confirmed by pharmacy (09/20/2022 12:14 PM CDT) METHOCARBAMOL 500 mg tablet 40 tablet 0 04/18/2023 -- No Sig: TAKE 1 TABLET BY MOUTH 4 TIMES A DAY NEEDED FOR PAIN Sent to pharmacy as: methocarbamoL 500 mg tablet (ROBAXIN) Class: eRX Order: [id number] Date/Time Signed: 04/18/2023 07:54 E-Prescribing Status: Receipt confirmed by pharmacy (04/18/2023 7:54 AM ROLL 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 Showing future appointments within next 150 days with a meds authorizing provider and meeting all other requirements Ann Garcia [facility] 2023-04-18 07:35:28 Images from the original note were not included. Requested Renewals Name from pharmacy: GLIMEPIRIDE 4 MG TABLET Will file in chart as: GLIMEPIRIDE 4 mg tablet Sig: TAKE ONE TABLET BY MOUTH EVERY MORNING AND IN THE EVENING (NEEDS APPOINTMENT FOR FURTHER REFILLS) Disp: 180 tablet Refills: 1 (Pharmacy requested: Not specified) Start: 04/18/2023 Class: eRX For: Type 2 diabetes mellitus with diabetic neuropathy, without long-term current use of insulin Last ordered: 7 months ago (09/20/2022) by Marsha Vera MD Last refill: 01/16/2023 Rx #: [id number] Endocrinology: Diabetes - Sulfonylureas Yvatnx4604/18/2023 12:10 AM Protocol Details Cr in normal range and within 360 days Valid encounter within last 12 months HBA1C within 180 days Name from pharmacy: METHOCARBAMOL 500 MG TABLET Will file in chart as: METHOCARBAMOL 500 mg tablet Sig: TAKE 1 TABLET BY MOUTH 4 TIMES A DAY NEEDED FOR PAIN Disp: 40 tablet Refills: 0 (Pharmacy requested: Not specified) Start: 04/18/2023 Class: eRX For: Chronic bilateral low back pain with sciatica, sciatica laterality unspecified Last ordered: 1 month ago (03/11/2023) by Marsha Vera MD Last refill: 03/11/2023 Rx #: [id number] Provider Review Required - Methocarbamol Stsdhg3804/18/2023 12:10 AM Protocol Details This refill cannot be delegated Manual Review: Methocarbamol for ortho staff to refill only Valid encounter within last 12 months Name from pharmacy: CITALOPRAM HBR 40 MG TABLET Will file in chart as: CITALOPRAM 40 mg tablet Sig: TAKE ONE TABLET BY MOUTH EVERY MORNING Disp: 90 tablet Refills: 1 (Pharmacy requested: Not specified) Start: 04/18/2023 Class: eRX For: Anxiety Last ordered: 7 months ago (09/20/2022) by Marsha eVra MD Last refill: 12/20/2022 Rx #: [id number] Psychiatry: Antidepressants Csxjzh3804/18/2023 12:10 AM Protocol Details Manual Review: Verify no changes in dose in the last 3 months Valid encounter within last 12 months Name from pharmacy: LEVOTHYROXINE 50 MCG TABLET Will file in chart as: LEVOTHYROXINE 50 mcg tablet Sig: TAKE ONE TABLET BY MOUTH EVERY MORNING Disp: 90 tablet Refills: 1 (Pharmacy requested: Not specified) Start: 04/18/2023 Class: eRX For: Hypothyroidism due to acquired atrophy of thyroid Last ordered: 7 months ago (09/20/2022) by Marsha Vera MD Last refill: 01/16/2023 Rx #: [id number] Endocrinology: Hypothyroid Agents Pzbxwj0204/18/2023 12:10 AM Protocol Details Manual Review: ENT providers forward refill request to PCP. TSH in normal range and within 360 days Valid encounter within last 12 months Name from pharmacy: LISINOPRIL 20 MG TABLET Will file in chart as: LISINOPRIL 20 mg tablet Sig: TAKE ONE TABLET BY MOUTH EVERY MORNING Disp: 90 tablet Refills: 1 (Pharmacy requested: Not specified) Start: 04/18/2023 Class: eRX For: Essential hypertension Last ordered: 7 months ago (09/20/2022) by Marsha Vera MD Last refill: 01/16/2023 Rx #: [id number] Cardiovascular: PEDRO Inhibitors Hajtcf7804/18/2023 12:10 AM Protocol Details Cr in normal range and within 360 days Valid encounter within last 12 months K in normal range and within 360 days To be filled at: [facility] [id number] [place] [address] [facility] NA (mmol/L) Date Value 11/08/2022 139 SODIUM-Q (mmol/L) Date Value 06/03/2015 133 (L) K (mmol/L) Date Value 11/08/2022 5.0 POTASSIUM-Q (mmol/L) Date Value 06/03/2015 4.6 CALCIUM (mg/dL) Date Value 11/08/2022 9.3 CALCIUM-Q (mg/dL) Date Value 06/03/2015 9.0 CL (mmol/L) Date Value 11/08/2022 109 (H) CHLORIDE-Q (mmol/L) Date Value 06/03/2015 99 BUN (mg/dL) Date Value 11/08/2022 22 UREA NITROGEN (BUN)-Q (mg/dL) Date Value 06/03/2015 24 CREATININE (mg/dL) Date Value 11/08/2022 1.67 (H) CREATININE-Q (mg/dL) Date Value 06/03/2015 0.82 GLUCOSE (mg/dL) Date Value 11/08/2022 112 (H) GLUCOSE-Q (mg/dL) Date Value 06/03/2015 166 (H) CO2 TOTAL (mmol/L) Date Value 11/08/2022 16 (L) CARBON DIOXIDE-Q (mmol/L) Date Value 06/03/2015 24 ALBUMIN (g/dL) Date Value 11/08/2022 3.8 ALBUMIN-Q (g/dL) Date Value 06/03/2015 3.6 T PROTEIN (g/dL) Date Value 11/08/2022 6.7 PROTEIN, TOTAL-Q (g/dL) Date Value 06/03/2015 6.7 TOTAL BILI (mg/dL) Date Value 11/08/2022 0.2 BILIRUBIN, TOTAL-Q (mg/dL) Date Value 06/03/2015 0.4 BILI UNCON (mg/dL) Date Value 03/21/2015 0.0 BILI CONJ (mg/dL) Date Value 03/21/2015 1.1 (H) ALT(SGPT) (U/L) Date Value 12/02/2015 30 ALT-Q (U/L) Date Value 06/03/2015 19 ALTv (U/L) Date Value 11/08/2022 22 AST(SGOT) (U/L) Date Value 11/08/2022 31 AST-Q (U/L) Date Value 06/03/2015 21 ALK PHOS (U/L) Date Value 11/08/2022 120 ALKALINE PHOSPHATASE-Q (U/L) Date Value 06/03/2015 102 There are no current results on file for these tests and/or test for 1 year. Recent Visits Date Type Provider Dept 09/20/22 Office Visit Marsha Vera MD [facility] Showing recent visits within past 540 days with a meds authorizing provider and meeting all other requirements Future Appointments No visits were found meeting these conditions. Showing future appointments within next 150 days with a meds authorizing provider and meeting all other requirements TESTER Loulou Lee LVN [facility] 2023-03-11 08:30:27 Images from the original note were not included. Requested Renewals Name from pharmacy: METHOCARBAMOL 500 MG TABLET Will file in chart as: METHOCARBAMOL 500 mg tablet Sig: TAKE 1 TABLET BY MOUTH 4 TIMES A DAY NEEDED FOR PAIN Disp: 40 tablet Refills: 0 (Pharmacy requested: Not specified) Start: 03/11/2023 Class: eRX For: Chronic bilateral low back pain with sciatica, sciatica laterality unspecified Last ordered: 2 months ago (12/26/2022) by Marsha Vera MD Last refill: 12/26/2022 Rx #: [id number] Provider Review Required - Methocarbamol [id number]/08/2023 05:46 PM Protocol Details This refill cannot be delegated Manual Review: Methocarbamol for ortho staff to refill only Valid encounter within last 12 months To be filled at: [facility] [id number] [place] [id number] Recent Visits Date Type Provider Dept 09/20/22 Office Visit Marsha Vera MD [facility] 09/25/21 Office Visit Enoch Kaur MD [facility] Showing recent visits within past 540 days with a meds authorizing provider and meeting all other requirements Future Appointments No visits were found meeting these conditions. Showing future appointments within next 150 days with a meds authorizing provider and meeting all other requirements BERTO Lee LVN [facility] 2022-10-04 09:40:51 Formatting of this n ote is different from the original. Images from the original note were not included. Requested Renewals amLODIPine 5 mg tablet Sig: N/A Disp: Not specified Refills: Start: 10/03/2022 Class: eRX Non-formulary Last ordered: 2 weeks ago (09/20/2022) by [place] Doctor Unassigned Calcium Channel Blockers Passed 10/03/2022 01:41 PM Protocol Details Valid encounter within last 12 months To be filled at: [facility] [id number] [address] Recent Visits Date Type Provider Dept 09/20/22 Office Visit Marsha Vera MD [facility] 09/25/21 Office Visit Enoch Kaur MD [facility] 05/24/21 Office Visit Marsha Vera MD [facility] Showing recent visits within past 540 days with a meds authorizing provider and meeting all other requirements Future Appointments No visits were found meeting these conditions. Showing future appointments within next 150 days with a meds authorizing provider and meeting all other requirements oyin Lee LVN [facility] 2022-09-28 15:22:09 Formatting of this n ote might be different from the original. Received transition of care summary from [facility].placed in providers basket. Lopez [facility]
[2024-05-27] MEDS ORDERED: FAMOTIDINE 20 MG/2 ML VIAL IV ONE (22:55)
[2024-05-27] MEDS ORDERED: METOCLOPRAMIDE 10 MG/2mL INJ ONE (22:55)
[2024-05-27] MEDS ORDERED: PANTOPRAZOLE 40 MG INJ ONE (22:55)
[2024-05-27] MEDS ORDERED: ONDANSETRON 4 MG/2 ML VIAL ONE (22:55)
[2024-05-27] MEDS ORDERED: NA CHLORIDE 0.9% 3,000 ML ONE (22:55)
[2024-05-27 23:25] LABS: Absolute Basophils 0.1 K/uL (0-0.5); Absolute Eosinophils 0.1 K/uL (0-0.5); Absolute Lymphocytes (CBC) 1.9 K/uL (0.7-4.9); Absolute Monocytes 0.6 K/uL (0.1-1.3); Absolute Neutrophil 11.9 K/uL (1.8-8.0); Basophils % 0.6 % (0-1.3); Eosinophils % 0.6 % (0-4.4); Hematocrit 37.9 % (36.0-45.0); Lymphocytes % 12.8 % (15.3-44.8); MCH 29.1 pg (27.0-35.0); MCHC 31.7 g/dL (32.0-36.0); MPV 11.4 fL (7.6-11.3); Monocytes % 4.2 % (3.3-12.3); Neutrophils % 81.8 % (41.7-73.7); Nucleated Red Blood Cells % 0.1 % (0-0); Platelets 294 thou/uL (152-406); Protime INR 1.06; RBC Red Blood Cell Count 4.12 M/uL (3.86-4.86)
[2024-05-27 23:58] LABS: Albumin 2.9 g/dL (3.4-5.0); Albumin/Globulin Ratio 0.7 (1.1-1.8); Anion Gap 16.7 mEq/L (5.0-15.0); Bilirubin Direct 0.2 mg/dL (0-0.2); Bilirubin Indirect, Calculated 0.4 mg/dL (0.2-0.8); Bilirubin Total 0.6 mg/dL (0.2-1.0); Globulin 4.2 g/dL (2.3-3.5); Magnesium 2.4 mg/dL (1.6-2.4); Potassium 4.7 mEq/L (3.5-5.1); Protein, Total 7.1 g/dL (6.4-8.2)
[2024-05-28 00:09] LABS: Thyroid Stimulating Hormone 5.83 uIU/mL (0.358-3.740)
[2024-05-28 00:33] LABS: Specific Gravity 1.014 (1.005-1.030); Urine Bilirubin NEGATIVE (Negative); Urine Blood Trace (Negative); Urine Clarity Extremely Turbid (Clear); Urine Color Light-Orange (Yellow); Urine Glucose 3+ (Negative); Urine Ketones TRACE (Negative); Urine Microscopic Reflex YN NO UMIC; Urine Nitrite NEGATIVE (Negative); Urine Protein 2+ (Negative); Urine Urobilinogen 1+ (Normal)
[2024-05-28 00:35] LABS: Urine Bacteria Loaded /HPF (<20); Urine Culture Reflex Order REFLEXED; Urine Mucus 2+ /HPF (None Seen); Urine RBC 21-50 /HPF (None Seen); Urine WBC >50 /HPF (<5); Urine WBC Clump Few /HPF (None Seen)
[2024-05-28] MEDS ORDERED: INSULIN REGULAR (HUMAN) 100 UNIT/ML ONE ×3 (00:48→12:11)
[2024-05-28 00:58] LABS: C-Reactive Protein 10.4 mg/L (<3.00)
[2024-05-28 01:21] LABS: BETA HYDROXYBUTYRATE 0.63 mmol/L (0.02-0.27)
[2024-05-28] MEDS ORDERED: VANCOMYCIN 1 GM/VIAL ONE ×2 (01:28→06:28)
[2024-05-28] MEDS ORDERED: NA CHLORIDE 0.9% 500 ML ONE (01:28)
[2024-05-28] MEDS ORDERED: NA CHLORIDE 0.9% 50 ML ONE (01:28)
[2024-05-28] MEDS ORDERED: CEFTRIAXONE 1000 MG/VIAL ONE (01:28)
[2024-05-28] MEDS ORDERED: METRONIDAZOLE 500mg IVPB 500 MG/100 ML BAG IV ONE (01:29)
[2024-05-28] MEDS ORDERED: PROMETHAZINE 25 MG TABLET ONE (04:13)
[2024-05-28] MEDS ORDERED: METHOCARBAMOL 1,000 MG/10 ML VIAL ONE (04:13)
[2024-05-28] MEDS ORDERED: HYDROCODONE/APAP 5/325 MG TAB ONE (04:13)
[2024-05-28] MEDS ORDERED: NA CHLORIDE 0.9% 1,000 ML ONE ×2 (04:14→06:21)
[2024-05-28] MEDS ORDERED: NA CHLORIDE 0.9% 100 ML ONE ×2 (04:14→07:44)
--- NOTE | 2024-05-28 04:24 | EDPHYS ---
Physician Documentation [facility] Name: Karlie Hidalgo Age: 59 yrs Sex: Female : 1965 Arrival Date: 05/27/2024 Time: 22:12 Bed 13 Private MD: ED Physician Baron Hubbard HPI: 05/27 22:20 This 59 yrs old Female presents to ER via Unassigned with complaints of sp4 dehydration , vomiting . 22:40 59-year-old female presents with EMS with complaint of generalized weakness of vomiting sp4 elevated blood sugar. Patient states the last 3 days vomiting has intensified she could not keep anything down. Patient is ill-appearing and reports she is on Ozempic for diabetes control.. 22:48 Recent admission 08/29/2022 for acute blood loss anemia, upper GI bleed, bleeding sp4 gastric ulcer, acute cystitis, type 2 diabetes, chronic kidney disease stage III. History also of tremors headaches and obesity. Medications include citalopram 40 mg daily, glimepiride 4 mg twice daily, levothyroxine daily, metformin 1000 twice daily, pravastatin 80 mg bedtime, lisinopril daily, methocarbamol bedtime, amlodipine daily, pantoprazole 40 twice daily.. Historical: - Allergies: 22:27 Benadryl; dd2 - PMHx: 22:27 diabetes mellitus; Hypertensive disorder; dd2 - PSHx: 22:27 HYSTERECTOMY (Hypertensive disorder); dd2 - Immunization history:: Adult Immunizations up to date. - Infectious Disease History:: Denies. - Social history:: Smoking status: Patient denies any tobacco usage or history of. - Family history:: not pertinent. ROS: 05/28 04:19 Constitutional: Negative for fever, chills, and weight loss, positive for generalized sp4 weakness, positive for nausea vomiting, positive for feeling unwell All other systems are negative, Exam: 04:19 Constitutional: Morbidly obese female, ill-appearing, generalized pallor, poor skin sp4 turgor indicative of dehydration, tachycardic on arrival. Head/Face: Normocephalic, atraumatic. Eyes: Pupils equal round and reactive to light, extra-ocular motions intact. Lids and lashes normal. Conjunctiva and sclera are not injected. Cornea within normal limits. Periorbital areas with no swelling, redness, or edema. ENT: Nares patent. No nasal discharge, no septal abnormalities noted. Tympanic membranes are normal and external auditory canals are clear. Oropharynx with no redness, swelling, or masses, exudates, or evidence of obstruction, uvula midline. Mucous membranes moist. Neck: Trachea midline, no thyromegaly or masses palpated, and no cervical lymphadenopathy. Supple, full range of motion without nuchal rigidity, or vertebral point tenderness. Chest/axilla: Normal chest wall appearance and motion. Nontender with no deformity. No lesions are appreciated. Cardiovascular: Regular rate and rhythm with a normal S1 and S2. No gallops, murmurs, or rubs. Normal PMI, no JVD. No pulse deficits. Respiratory: Lungs have equal breath sounds bilaterally, clear to auscultation and percussion. No rales, rhonchi or wheezes noted. No increased work of breathing, no retractions or nasal flaring. Abdomen/GI: Soft, with normal bowel sounds. No distension or tympany. No guarding or rebound. No evidence of tenderness throughout. Back: No spinal tenderness. No costovertebral tenderness. Female : Normal external genitalia. Skin: Warm, dry with normal turgor. Normal color with no rashes, no lesions, and no evidence of cellulitis. MS/ Extremity: Pulses equal, no cyanosis. Neurovascular intact. Full, normal range of motion. Neuro: Awake and alert, GCS 15, oriented to person, place, time, and situation. Cranial nerves II-XII grossly intact. Motor strength 5/5 in all extremities. Sensory grossly intact. Psych: Awake, alert, with orientation to person, place and time. Behavior, mood, and affect are within normal limits 04:24 ECG was reviewed by the Attending Physician. EKG 2234 sinus rhythm rate 88, moderate sp4 muscle tremor artifact, left axis deviation, prolonged QT. Vital Signs: 05/27 22:20 BP 101 / 57; Pulse 92; Resp 16; Temp 97.8; Pulse Ox 95% on R/A; Weight 113.4 kg; Height dd2 5 ft. 0 in. ; Pain 0/10; 22:31 BP 105 / 63; Pulse 92; Resp 16; Pulse Ox 100% on R/A; Pain 0/10; dd2 22:47 BP 103 / 60; Pulse 91; Resp 17; Temp 98.1; Pulse Ox 98% ; dd2 05/28 00:44 BP 111 / 55; Pulse 89; Resp 17; Pulse Ox 99% ; mb12 01:53 BP 90 / 50; Pulse 84; Resp 16; Temp 98.5; Pulse Ox 97% ; mb12 02:36 BP 100 / 41; Pulse 87; Resp 17; Pulse Ox 100% ; mb12 03:40 BP 95 / 52; Pulse 85; Resp 16; Pulse Ox 99% ; mb12 04:32 BP 123 / 56; Pulse 88; Resp 17; Pulse Ox 97% ; mb12 05/27 22:20 Body Mass Index 48.82 (113.40 kg, 152.4 cm) dd2 05/27 22:20 Pain Scale: Adult dd2 22:31 Pain Scale: Adult dd2 NIH Stroke Scale Scores: 04:19 NIHSS Score: 0 sp4 [place] Coma Score: 05/27 22:31 Eye Response: spontaneous(4). Motor Response: obeys commands(6). Verbal Response: dd2 oriented(5). Total: 15. 05/28 04:19 Eye Response: spontaneous(4). Motor Response: obeys commands(6). Verbal Response: sp4 oriented(5). Total: 15. MDM: 05/27 22:24 Medical Screening Exam initiated sp4 05/28 03:43 ED course: EXAM: 1. CT scan of the CHEST without intravenous contrast. 2. CT scan of sp4 the ABDOMEN AND PELVIS without intravenous contrast CLINICAL DATA: 59 years Female CHEST PAIN. TECHNICAL DATA: CT imaging of the chest, abdomen and pelvis without intravenous contrast administration. Sagittal and coronal reconstructed images were performed. The CT study is performed according to ALARA (as low as reasonably achievable) or ALARA/IMAGE GENTLY, with automatic adjustment of mA and/or kV according to patient size. Performed on: 05/28/2024 at 2:15 AM Comparisons: CT abdomen and pelvis without contrast performed on 08/29/2022 FINDINGS: CHEST: Lungs:The lungs are well expanded and are clear. There are no pleural effusions. There is no pneumothorax. The central airways are patent. Heart: The heart is normal in size. There is no pericardial effusion. Mediastinum:The mediastinum is unremarkable. The mediastinal vessels are normal in caliber and contour. There are minimal atherosclerotic calcifications along the thoracic aorta. Bones:No acute osseous abnormalities are identified. Soft tissues:No focal soft tissue abnormalities are identified. Lymphadenopathy: No pathologic hilar, mediastinal or axillary lymphadenopathy is identified. ABDOMEN/PELVIS: Liver:The liver is normal in size and configuration. No focal hepatic abnormalities are identified. There is decreased attenuation of the liver which can be seen with hepatic steatosis. Spleen:The spleen is normal in size, configuration and attenuation. Gallbladder and bile duct: The gallbladder is well-distended. There is increased attenuation within the gallbladder lumen which may be due to sludge. There is no biliary ductal dilatation. Pancreas: The pancreas is grossly normal in size and configuration. Adrenal Glands:The adrenal glands are normal in size and configuration. Kidneys:The kidneys are normal in size and configuration. There is no evidence of hydronephrosis. There is no evidence of nephrolithiasis. No definite solid or cystic renal mass lesions are identified. Stomach:The stomach is grossly normal. There is no definite hiatal hernia. Bowel:The bowel gas pattern is non specific and non obstructive. There is scattered colonic diverticulosis. Appendix: The appendix is normal. Free air:There is no evidence of free air. Free fluid: There is no evidence of free fluid. Vasculature: The aorta is normal in caliber and contour. The inferior vena cava is grossly unremarkable. Lymphadenopathy: No pathologic lymphadenopathy is identified. Bladder: The bladder is partially distended and smooth in contour. Reproductive: The uterus is surgically absent. Bones: No acute osseous abnormalities are identified. There is chronic degenerative disc disease at L4-L5 possibly related to chronic osteomyelitis. There is a prominent disc osteophyte complex at L2-L3. There appears to be left neural foraminal stenosis at L3-L4 and bilateral neural foraminal stenosis at L4-L5. Soft tissues: No focal soft tissue abnormalities are identified. IMPRESSION: CT CHEST: 1. No evidence of acute intrathoracic disease. CT SCAN ABDOMEN AND PELVIS: 1. Decreased attenuation of the liver which can be seen with hepatic steatosis. 2. Increased attenuation within the gallbladder lumen which may be due to sludge. 3. Scattered colonic diverticulosis. 4. Prior hysterectomy. 5. Chronic degenerative disc disease at L4-L5 possibly related to chronic osteomyelitis. There is a prominent disc osteophyte complex at L2-L3. There appears to be left neural foraminal stenosis at L3-L4 and bilateral neural foraminal stenosis at L4-L5. Electronically signed by: Sujatha Gonzalezbecky BURKS 05/28/2024 02:53 AM . 04:21 Differential Diagnosis altered mental status, sepsis, flu. Data reviewed: vital signs, sp4 nurses notes, EMS record, old medical records, lab test result(s), EKG, radiologic studies, CT scan, plain films. Consideration of Admission/Observation Patient was admitted/placed on observation. Escalation of care including admission/observation considered. 04:24 ED course: Sepsis reevaluation complete. Patient was given 30 mL per cake septic fluid sp4 bolus for the total of 3 L. . 04:24 Management of patient was discussed with the following: Hospitalist: Hilton SCHAFER . sp4 05/27 22:21 Order name: Basic Metabolic Panel; Complete Time: 00:28 sp4 05/27 22:21 Order name: CBC with Diff; Complete Time: 00:28 sp4 05/27 22:21 Order name: LFT's; Complete Time: 00:28 sp4 05/27 22:21 Order name: Magnesium; Complete Time: 00:29 sp4 05/27 22:21 Order name: NT PRO-BNP; Complete Time: 00:28 sp4 05/27 22:21 Order name: PT-INR; Complete Time: 00:29 sp4 05/27 22:21 Order name: Troponin HS; Complete Time: 00:29 sp4 05/27 22:21 Order name: Lipase; Complete Time: 00:29 sp4 05/27 22:21 Order name: Lactate w/ 2H reflex if indic.; Complete Time: 00:29 sp4 05/27 22:21 Order name: Blood Culture Adult (2) sp4 05/27 22:22 Order name: TSH; Complete Time: 00:29 sp4 05/27 22:22 Order name: T4 Free; Complete Time: 00:29 sp4 05/27 22:22 Order name: CRP; Complete Time: 02:42 sp4 05/27 22:22 Order name: Urinalysis w/ reflexes; Complete Time: 01:17 sp4 05/27 22:23 Order name: BETA HYDROXYBUTYRATE; Complete Time: 02:42 sp4 05/27 22:24 Order name: CK; Complete Time: 02:42 sp4 05/28 00:12 Order name: Ghost Lactate-NO COLLECT Timer; Complete Time: 02:42 EDMS 05/28 00:40 Order name: Urine Culture EDMS 05/28 01:16 Order name: BMP; Complete Time: 02:42 sp4 05/28 03:38 Order name: Lactate Sepsis 2 HR Follow-up; Complete Time: 03:43 EDMS 05/28 05:02 Order name: Basic Metabolic Panel EDMS 05/28 05:02 Order name: Basic Metabolic Panel EDMS 05/28 05:02 Order name: CBC with Automated Diff EDMS 05/28 05:02 Order name: CBC with Automated Diff EDMS 05/28 05:46 Order name: Glucose, Ancillary Testing; Complete Time: 06:08 EDMS 05/28 07:31 Order name: Glucose, Ancillary Testing EDMS 05/28 07:38 Order name: Osmolality, Serum EDMS 05/28 08:55 Order name: Hemoglobin A1c EDIA 05/28 09:30 Order name: Glucose, Ancillary Testing EDMS 05/28 11:43 Order name: Glucose, Ancillary Testing EDIA 05/27 22:21 Order name: XRAY Chest (1 view) [facility] 05/28 01:19 Order name: CT Chest Abdomen Pelvis W/O Contrast 4 05/27 22:21 Order name: Cardiac monitoring; Complete Time: 23:00 4 05/27 22:21 Order name: EKG - Nurse/Tech; Complete Time: 23:00 4 05/27 22:21 Order name: IV Saline Lock; Complete Time: 23:00 4 05/27 22:21 Order name: Labs collected and sent; Complete Time: 23:00 4 05/27 22:21 Order name: O2 Per Protocol; Complete Time: 23:01 sp4 05/27 22:21 Order name: O2 Sat Monitoring; Complete Time: 23:01 sp4 05/27 22:23 Order name: Cath; Complete Time: 23:26 sp4 EC/09 22:34 Rate is 88 beats/min. Rhythm is regular, Normal Sinus Rhythm. QRS [place] is Normal. CO sp4 interval is normal. QRS interval is normal. QT interval is prolonged. No ST changes noted. Clinical impression: No evidence of ischemia. Interpreted by me. Reviewed by me. Administered Medications: 23:25 Drug: NS 0.9% IV 1000 ml IV at 125 ml/hr Per protocol; to be given as a bolus over 60 mb12 minutes Route: IV; Rate: 125 ml/hr; Site: right antecubital; 05/28 02:03 Follow up: IV Status: Completed infusion [facility] 05/27 23:25 Drug: Pantoprazole IVP 40 mg IVP once Route: IVP; Site: right antecubital; [facility] 05/28 01:44 Follow up: Response: No adverse reaction [facility] 05/27 23:25 Drug: Famotidine IVP 20 mg IVP once; dilute with 10 mL 0.9% NaCl; give over 2 minutes [facility] Route: IVP; Site: right antecubital; 05/28 01:43 Follow up: Response: No adverse reaction 01:43 Follow up: Response: No adverse reaction [facility] 05/27 23:26 Drug: Ondansetron IVP 8 mg IVP once; over 2 minutes Route: IVP; Site: right antecubital;[facility] 05/28 01:41 Follow up: Response: No adverse reaction [facility] 05/27 23:26 Drug: NS 0.9% IV 1000 ml IV at 1 bolus Per protocol; to be given as a bolus over 60 mb12 minutes Route: IV; Rate: 1 bolus; Site: right antecubital; 05/28 01:42 Follow up: Response: No adverse reaction; IV Intake: 1000ml [facility] 02:03 Follow up: IV Status: Completed infusion [facility] 05/27 23:26 Drug: metoCLOPramide IVP 10 mg IVP once; over 1 to 2 minutes Route: IVP; Site: right [facility] antecubital; 05/28 01:43 Follow up: Response: No adverse reaction [facility] 05/27 23:27 Drug: NS 0.9% IV 1000 ml IV at 1000 ml once; to be given as a bolus over 60 minutes [facility] Route: IV; Rate: 1000 ml; Site: right antecubital; 05/28 01:41 Follow up: Response: No adverse reaction [facility] 02:03 Follow up: IV Status: Completed infusion [facility] 00:54 Drug: Insulin Regular Human IVP 10 units IVP once {Co-Signature: dd2 (BARRETT MORA [facility] RN).} Route: IVP; Site: right antecubital; 01:30 Drug: Rocephin - Rocephin (cefTRIAXone) IVPB 1 grams IVPB once over 30 mins; (mix in 50 mb12 mL NS) Route: IVPB; Infused Over: 30 mins; Site: right antecubital; 01:42 Follow up: Response: No adverse reaction; IV Intake: 50ml mb12 02:03 Follow up: IV Status: Completed infusion mb12 01:44 Drug: metroNIDAZOLE IVPB 500 mg 100 ml IVPB at 200 ml/hr once over 30 mins Volume: 100 mb12 ml; Route: IVPB; Rate: 200 ml/hr; Infused Over: 30 mins; Site: right antecubital; 01:51 Follow up: Response: No adverse reaction; IV Intake: 100ml mb12 02:04 Follow up: IV Status: Completed infusion mb12 01:51 Drug: vancoMYCIN IVPB 2 grams IVPB at calculated rate once Route: IVPB; Rate: mb12 calculated rate; Site: right antecubital; 04:30 Follow up: Response: No adverse reaction; IV Status: Completed infusion; IV Intake: mb12 500ml 04:31 Drug: HYDROcodone-acetaminophen PO 5 mg-325 mg 2 tabs PO once Route: PO; mb12 04:31 Follow up: Response: No adverse reaction mb12 04:31 Drug: Methocarbamol IVPB 1 grams IVPB once over 1 hrs; (mix in NS 100 mL) Route: IVPB; mb12 Infused Over: 1 hrs; Site: right antecubital; 05:43 Follow up: IV Status: Completed infusion; IV Intake: 110ml mb12 04:31 Drug: Promethazine PO 25 mg PO once Route: PO; mb12 04:31 Follow up: Response: No adverse reaction mb12 04:31 Drug: NS 0.9% IV 1000 ml IV at 1 bolus Per protocol; to be given as a bolus over 60 mb12 minutes Route: IV; Rate: 1 bolus; Site: right antecubital; 05:43 Follow up: IV Status: Infusion continued; IV Intake: 1000ml mb12 Disposition Summary: 05/28/24 04:24 Hospitalization Ordered Notes: Hospitalization Status: Inpatient Admission sp4 Provider: Uri Canela sp4 Condition: Serious sp4 Problem: new sp4 Symptoms: have improved sp4 Bed/Room Type: Standard sp4 Location: Telemetry/MedSurg (Inpatient)(05/28/24 12:03) bc6 Room Assignment: 211(05/28/24 12:03) 6 Diagnosis - Moderate dehydration, acute renal failure, hyperglycemia, hyperosmolar nonketotic sp4 hyperglycemic state, elevated anion gap acidosis, pyelonephritis, acute sepsis without septic shock - Severe sepsis without septic shock sp4 Forms: - Medication Reconciliation Form sp4 - SBAR form sp4 - Leadership Thank You Letter sp4 Critical care time excluding procedures: :22 Critical care time: Bedside Care: 36 minutes, Consultation: 12 minutes, Family sp4 Intervention: 12 minutes. Total time: 60 minutes NIH Stroke Scale - NIH Stroke Score Date: 05/28/2024 Time: :19 Total Score = 0 10. Dysarthria (speech clarity - read or repeat words) - 0(Normal) 11. Extinction and Inattention (visual/tactile/auditory/spatial/personal) - 0(No abnormality) 1a. Level of Consciousness (LOC) - 0(Alert) 1b. Level of Consciousness (LOC) (Month \T\ Age) - 0(Both) 1c. LOC Commands (Open \T\ Closes Eyes/[employer] Hatchery Specialist) - 0(Both) 2. Best Gaze (Lateral Gaze Paresis) - 0(Normal) 3. Visual Field Loss - 0(No visual loss) 4. Facial Palsy - 0(Normal) 5a. Left Arm: Motor (10-second hold) - 0(No drift) 5b. Right Arm: Motor (10-second hold) - 0(No drift) 6a. Left Leg: Motor (5-second hold - always test supine) - 0(No drift) 6b. Right Leg: Motor (5-second hold - always test supine) - 0(No drift) 7. Limb Ataxia (finger/nose \T\ heel/hardy - test with eyes open) - 0(Absent) 8. Sensory Loss (pinprick arms/legs/face) - 0(Normal) 9. Best Language: Aphasia (description/naming/reading) - 0(No aphasia) Initials: sp4 Signatures: Dispatcher [employer] EDMS Ruth Larsen RN RN vc1 Aminah Garcia bc6 Baron Hubbard MD MD sp4 BARRETT MORA RN RN dd2 Isabel Paez 12 BARRETT MORA RN dd2 Corrections: (The following items were deleted from the chart) 05/27 22:21 22:21 BASIC METABOLIC PANEL+C.LAB.BRZ ordered. EDMS EDMS 22:21 22:21 CBC+H.LAB.BRZ ordered. EDMS EDMS 22:21 22:21 HEPATIC FUNCTION+C.LAB.BRZ ordered. EDMS EDMS 22:21 22:21 MAGNESIUM+C.LAB.BRZ ordered. EDMS EDMS 22:21 22:21 PROBNP+C.LAB.BRZ ordered. EDMS EDMS 22:21 22:21 PROTIME (+INR)+COAG.LAB.BRZ ordered. EDMS EDMS 22:21 22:21 Troponin High Sensitivity+C.LAB.BRZ ordered. EDMS EDMS 22:21 22:21 Chest Single View+RAD.RAD.BRZ ordered. EDMS EDMS 22:24 22:24 CREATINE PHOSPHOKINASE+C.LAB.BRZ ordered. EDMS EDMS 05/28 04:35 04:24 Telemetry/MedSurg (Inpatient) sp4 vc1 04:35 04:24 sp4 vc1 12:03 04:35 [facility] ER HOLD vc1 bc6 12:03 04:35 ERHOLD- vc1 bc6
--- NOTE | 2024-05-28 04:24 | ER ---
Nurse's Notes [facility] Name: Karlie Hidalgo Age: 59 yrs Sex: Female : 1965 Arrival Date: 05/27/2024 Time: 22:12 Bed 13 Private MD: Diagnosis: Moderate dehydration, acute renal failure, hyperglycemia, hyperosmolar nonketotic hyperglycemic state, elevated anion gap acidosis, pyelonephritis, acute sepsis without septic shock;Severe sepsis without septic shock Presentation: 05/27 22:20 Chief complaint: EMS states: TONED OUT WEAKNESS AND N/V. PT REPORTS BEGAN FEELING WEAK dd2 AFTER STARTING OZEMPIC X6 WEEKS AGO AND BEGAN FEELING WORSE THE PAST 3 DAYS WITH N/V. Coronavirus screen: At this time, the client does not indicate any symptoms associated with coronavirus-19. Ebola Screen: No symptoms or risks identified at this time. Initial Sepsis Screen: Does the patient meet any 2 criteria? No. Patient's initial sepsis screen is negative. Does the patient have a suspected source of infection? No. Patient's initial sepsis screen is negative. Risk Assessment: Do you want to hurt yourself or someone else? Patient reports no desire to harm self or others. Onset of symptoms is unknown. Care prior to arrival: GLUCOSE CHECK - HI ON MONITOR. 22:20 Method Of Arrival: EMS: [facility] dd2 22:20 Acuity: WILBER 3 dd2 Triage Assessment: 22:27 General: Appears in no apparent distress. ill, Behavior is calm, cooperative, dd2 appropriate for age. Pain: Denies pain. EENT: No deficits noted. No signs and/or symptoms were reported regarding the EENT system. Neuro: Diaz Agitation-Sedation Scale (RASS): 0 - Alert and Calm Level of Consciousness is awake, alert, obeys commands, Oriented to person, place, time, situation, Appropriate for age Reports weakness GENERALIZED. Cardiovascular: Heart tones S1 S2 present JVD is absent Patient's skin is warm and dry. Chest pain is denied. Respiratory: No deficits noted. Airway is patent Respiratory effort is even, unlabored, Respiratory pattern is regular, symmetrical, Breath sounds are clear bilaterally. GI: Abdomen is non-distended, obese, Bowel sounds present X 4 quads. Abd is soft and non tender X 4 quads. Reports intolerance of fluids, intolerance of food, nausea, vomiting. : No deficits noted. No signs and/or symptoms were reported regarding the genitourinary system. Derm: No deficits noted. No signs and/or symptoms reported regarding the dermatologic system. Musculoskeletal: Circulation, motion, and sensation intact. Range of motion: intact in all extremities, Reports weakness in GENERALIZED. Historical: - Allergies: 22:27 Benadryl; dd2 - PMHx: 22:27 diabetes mellitus; Hypertensive disorder; dd2 - PSHx: 22:27 HYSTERECTOMY (Hypertensive disorder); dd2 - Immunization history:: Adult Immunizations up to date. - Infectious Disease History:: Denies. - Social history:: Smoking status: Patient denies any tobacco usage or history of. - Family history:: not pertinent. Screenin/10 00:17 [facility] ED Fall Risk Assessment (Adult) History of falling in the last 3 months, dd2 including since admission No falls in past 3 months (0 pts) Confusion or Disorientation No (0 pts) Intoxicated or Sedated No (0 pts) Impaired Gait No (0 pts) Mobility Assist Device Used No (0 pt) Altered Elimination No (0 pt) Score/Fall Risk Level 0 - 2 = Low Risk Oriented to surroundings, Maintained a safe environment, Educated pt \T\ family on fall prevention, incl call for assistance when getting out of bed, Assessed \T\ reinforced patient's understanding of fall precautions, Hourly rounding (assess needs \T\ fall precautionary measures) done. Abuse screen: Denies threats or abuse. Denies injuries from another. Nutritional screening: On diabetic diet, Has had N/V for 3 or more days. Tuberculosis screening: No symptoms or risk factors identified. Assessment: 05/27 22:31 Reassessment: SEE TRIAGE ASSESSMENT FOR FULL ASSESSMENT. dd2 Vital Signs: 22:20 BP 101 / 57; Pulse 92; Resp 16; Temp 97.8; Pulse Ox 95% on R/A; Weight 113.4 kg; Height dd2 5 ft. 0 in. ; Pain 0/10; 22:31 BP 105 / 63; Pulse 92; Resp 16; Pulse Ox 100% on R/A; Pain 0/10; dd2 22:47 BP 103 / 60; Pulse 91; Resp 17; Temp 98.1; Pulse Ox 98% ; dd2 05/28 00:44 BP 111 / 55; Pulse 89; Resp 17; Pulse Ox 99% ; mb12 01:53 BP 90 / 50; Pulse 84; Resp 16; Temp 98.5; Pulse Ox 97% ; mb12 02:36 BP 100 / 41; Pulse 87; Resp 17; Pulse Ox 100% ; mb12 03:40 BP 95 / 52; Pulse 85; Resp 16; Pulse Ox 99% ; mb12 04:32 BP 123 / 56; Pulse 88; Resp 17; Pulse Ox 97% ; mb12 05/27 22:20 Body Mass Index 48.82 (113.40 kg, 152.4 cm) dd2 05/27 22:20 Pain Scale: Adult dd2 22:31 Pain Scale: Adult dd2 Karoline Coma Score: 05/27 22:31 Eye Response: spontaneous(4). Motor Response: obeys commands(6). Verbal Response: dd2 oriented(5). Total: 15. 05/28 04:19 Eye Response: spontaneous(4). Motor Response: obeys commands(6). Verbal Response: sp4 oriented(5). Total: 15. NIH Stroke Scale Scores: 04:19 NIHSS Score: 0 sp4 ED Course: 05/27 22:17 Patient arrived in ED. rv1 22:20 Baron Hubbard MD is Attending Physician. sp4 22:20 BARRETT MORA, CARINA is Primary Nurse. dd2 22:27 Triage completed. dd2 22:27 Arm band placed on right wrist. dd2 22:31 Patient has correct armband on for positive identification. Bed in low position. Call dd2 light in reach. Side rails up X2. Client placed on continuous cardiac and pulse oximetry monitoring. NIBP monitoring applied. Door closed. Noise minimized. Warm blanket given. Pillow given. Verbal reassurance given. 22:31 Patient maintains SpO2 saturation greater than 95% on room air. dd2 22:50 Initial lab(s) drawn, by me, sent to lab. First set of blood cultures drawn Second set mb12 of blood cultures drawn EKG done, by ED staff, reviewed by Baron Hubbard MD X-ray(s) taken. 22:55 XRAY Chest (1 view) In Process Unspecified. EDMS 23:01 Inserted saline lock: 20 gauge in right antecubital area, using aseptic technique. mb12 Blood collected. Flushed with 10 mL NS. 05/28 00:17 No provider procedures requiring assistance completed. dd2 02:04 CT Chest Abdomen Pelvis W/O Contrast Sent. mb12 02:07 CT Chest Abdomen Pelvis W/O Contrast In Process Unspecified. EDMS 04:22 Uri Canela MD is Hospitalizing Provider. 4 05:42 Provided Education on: admission education. 12 05:42 Patient admitted, IV remains in place. 12 Administered Medications: 05/27 23:25 Drug: NS 0.9% IV 1000 ml IV at 125 ml/hr Per protocol; to be given as a bolus over 60 mb12 minutes Route: IV; Rate: 125 ml/hr; Site: right antecubital; 05/28 02:03 Follow up: IV Status: Completed infusion [facility] 05/27 23:25 Drug: Pantoprazole IVP 40 mg IVP once Route: IVP; Site: right antecubital; [facility] 05/28 01:44 Follow up: Response: No adverse reaction [facility] 05/27 23:25 Drug: Famotidine IVP 20 mg IVP once; dilute with 10 mL 0.9% NaCl; give over 2 minutes [facility] Route: IVP; Site: right antecubital; 05/28 01:43 Follow up: Response: No adverse reaction 01:43 Follow up: Response: No adverse reaction [facility] 05/27 23:26 Drug: Ondansetron IVP 8 mg IVP once; over 2 minutes Route: IVP; Site: right antecubital;[facility] 05/28 01:41 Follow up: Response: No adverse reaction [facility] 05/27 23:26 Drug: NS 0.9% IV 1000 ml IV at 1 bolus Per protocol; to be given as a bolus over 60 mb12 minutes Route: IV; Rate: 1 bolus; Site: right antecubital; 05/28 01:42 Follow up: Response: No adverse reaction; IV Intake: 1000ml [facility] 02:03 Follow up: IV Status: Completed infusion [facility] 05/27 23:26 Drug: metoCLOPramide IVP 10 mg IVP once; over 1 to 2 minutes Route: IVP; Site: right mb12 antecubital; 05/28 01:43 Follow up: Response: No adverse reaction [facility] 05/27 23:27 Drug: NS 0.9% IV 1000 ml IV at 1000 ml once; to be given as a bolus over 60 minutes mb12 Route: IV; Rate: 1000 ml; Site: right antecubital; 05/28 01:41 Follow up: Response: No adverse reaction mb12 02:03 Follow up: IV Status: Completed infusion mb12 00:54 Drug: Insulin Regular Human IVP 10 units IVP once {Co-Signature: dd2 (BARRETT MORA mb12 RN).} Route: IVP; Site: right antecubital; 01:30 Drug: Rocephin - Rocephin (cefTRIAXone) IVPB 1 grams IVPB once over 30 mins; (mix in 50 mb12 mL NS) Route: IVPB; Infused Over: 30 mins; Site: right antecubital; 01:42 Follow up: Response: No adverse reaction; IV Intake: 50ml mb12 02:03 Follow up: IV Status: Completed infusion mb12 01:44 Drug: metroNIDAZOLE IVPB 500 mg 100 ml IVPB at 200 ml/hr once over 30 mins Volume: 100 mb12 ml; Route: IVPB; Rate: 200 ml/hr; Infused Over: 30 mins; Site: right antecubital; 01:51 Follow up: Response: No adverse reaction; IV Intake: 100ml mb12 02:04 Follow up: IV Status: Completed infusion mb12 01:51 Drug: vancoMYCIN IVPB 2 grams IVPB at calculated rate once Route: IVPB; Rate: mb12 calculated rate; Site: right antecubital; 04:30 Follow up: Response: No adverse reaction; IV Status: Completed infusion; IV Intake: mb12 500ml 04:31 Drug: HYDROcodone-acetaminophen PO 5 mg-325 mg 2 tabs PO once Route: PO; mb12 04:31 Follow up: Response: No adverse reaction mb12 04:31 Drug: Methocarbamol IVPB 1 grams IVPB once over 1 hrs; (mix in NS 100 mL) Route: IVPB; mb12 Infused Over: 1 hrs; Site: right antecubital; 05:43 Follow up: IV Status: Completed infusion; IV Intake: 110ml mb12 04:31 Drug: Promethazine PO 25 mg PO once Route: PO; mb12 04:31 Follow up: Response: No adverse reaction mb12 04:31 Drug: NS 0.9% IV 1000 ml IV at 1 bolus Per protocol; to be given as a bolus over 60 mb12 minutes Route: IV; Rate: 1 bolus; Site: right antecubital; 05:43 Follow up: IV Status: Infusion continued; IV Intake: 1000ml mb12 Medication: 05/27 22:31 VIS not applicable for this client. dd2 Intake: 05/28 01:42 IV: 1000ml; Total: 1000ml. mb12 01:42 IV: 50ml; Total: 1050ml. mb12 01:51 IV: 100ml; Total: 1150ml. mb12 04:30 IV: 500ml; Total: 1650ml. mb12 05:43 IV: 110ml; Total: 1760ml. mb12 05:43 IV: 1000ml; Total: 2760ml. mb12 Outcome: 04:24 Decision to Hospitalize by Provider. sp4 05:41 Admitted to ER Hold. Please see [facility] for further documentation. mb12 05:41 Condition: stable 05:41 Instructed on the need for admit, Demonstrated understanding of instructions, 13:26 Patient left the ED. db NIH Stroke Scale - NIH Stroke Score Date: 05/28/2024 Time: 04:19 Total Score = 0 10. Dysarthria (speech clarity - read or repeat words) - 0(Normal) 11. Extinction and Inattention (visual/tactile/auditory/spatial/personal) - 0(No abnormality) 1a. Level of Consciousness (LOC) - 0(Alert) 1b. Level of Consciousness (LOC) (Month \T\ Age) - 0(Both) 1c. LOC Commands (Open \T\ Closes Eyes/Software Systems Engineer) - 0(Both) 2. Best Gaze (Lateral Gaze Paresis) - 0(Normal) 3. Visual Field Loss - 0(No visual loss) 4. Facial Palsy - 0(Normal) 5a. Left Arm: Motor (10-second hold) - 0(No drift) 5b. Right Arm: Motor (10-second hold) - 0(No drift) 6a. Left Leg: Motor (5-second hold - always test supine) - 0(No drift) 6b. Right Leg: Motor (5-second hold - always test supine) - 0(No drift) 7. Limb Ataxia (finger/nose \T\ heel/hardy - test with eyes open) - 0(Absent) 8. Sensory Loss (pinprick arms/legs/face) - 0(Normal) 9. Best Language: Aphasia (description/naming/reading) - 0(No aphasia) Initials: sp4 Signatures: Dispatcher [employer] Adele Olmos RN RN db Mely Quiles rv1 Baron Hubbard MD MD sp4 BARRETT MORA RN RN dd2 Isabel Paez mb12 BARRETT MORA RN dd2
[2024-05-28] MEDS ORDERED: D10W 125 ML IV PRN (04:56)
[2024-05-28] MEDS ORDERED: GLUCAGON 1 MG/VIAL IM PRN (04:56)
[2024-05-28] MEDS ORDERED: ACETAMINOPHEN 500 MG TAB PO PRN (04:56)
--- NOTE | 2024-05-28 04:56 | P.HP ---
Patient History Date of Service: 05/28/24 Reason for admission: Generalized weakness History of Present Illness: 59-year-old female with a past medical history of type 2 diabetes, hypertension presenting with generalized weakness that has been going on for the last 5 to 6- week. She states it all began with a fungal infection. She developed thrush as well as a rash around her groin. In addition to this fungal infection she started taking Ozempic. She felt as if this medication made her symptoms worse. Associated symptoms include vomiting. She denies chest pain or shortness of breath or fevers. She lives with her son. She does not drink or use any illicit drugs. Allergies diphenhydramine [From Benadryl] Adverse Reaction (Severe, Verified 08/29/22 07:50) Shortness of breath Home Medications: Citalopram Hydrobromide [Citalopram HBr] 40 mg PO DAILY 08/29/22 Glimepiride 4 mg PO BID 08/29/22 Levothyroxine Sodium 1 cap PO DAILY 08/29/22 Metformin HCl 1,000 mg PO BID 08/29/22 Pravastatin Sodium 80 mg PO BEDTIME 08/29/22 lisinopriL [Lisinopril] 1 tab PO DAILY 08/29/22 methocarbamoL [Methocarbamol] 500 mg PO BEDTIME PRN 08/29/22 Amlodipine [Norvasc*] 5 mg PO DAILY #30 tab 08/31/22 Pantoprazole [Protonix Tab] 40 mg PO BID #60 tab 08/31/22 - Past Medical/Surgical History Diabetic: Yes -: HTN -: DM2 -: Obesity -: Hysterectomy -: Right rotator cuff surgery -: Tonsillectomy -: Hysterectomy - Family History mom -: Hypertension, Diabetes dad -: Heart disease, Hypertension, Diabetes - Social History Alcohol use: No CD- Drugs: No Caffeine use: Yes Review of Systems General: Weakness Eyes: Unremarkable ENT: Unremarkable Respiratory: Unremarkable Cardiovascular: Unremarkable Gastrointestinal: Unremarkable Genitourinary: Unremarkable Musculoskeletal: Unremarkable Integumentary: Unremarkable Neurological: Unremarkable Lymphatics: Unremarkable Physical Examination - Physical Exam General: Alert, In no apparent distress, Obese HEENT: Atraumatic, Normocephalic Neck: Supple Respiratory: Clear to auscultation bilaterally Cardiovascular: No edema, Normal pulses Capillary refill: <2 Seconds Gastrointestinal: Normal bowel sounds Musculoskeletal: No clubbing, No swelling Integumentary: No rashes Neurological: Normal speech, Normal strength at 5/5 x4 extr Lymphatics: No axilla or inguinal lymphadenopathy - Studies Laboratory Data (last 24 hrs) 05/28/24 05/27/24 05/27/24 01:27 22:35 22:35 WBC 14.50 H Hgb 12.0 Hct 37.9 Plt Count 294 PT 12.0 INR 1.06 Sodium 136 D Potassium 4.0 D BUN 31 H Creatinine 3.48 H Glucose 469 H* Magnesium Total Bilirubin AST ALT Alkaline Phosphatase Lipase 05/27/24 22:35 WBC Hgb Hct Plt Count PT INR Sodium 129 L Potassium 4.7 BUN 33 H Creatinine 3.94 H Glucose 631 H* Magnesium 2.4 Total Bilirubin 0.6 AST 49 H ALT 23 Alkaline Phosphatase 165 H Lipase 65 Assessment and Plan - Plan Severe sepsis HHNKS Acute kidney injury Lactic acidosis Pyelonephritis Leukocytosis Dehydration Pseudohyponatremia Continue fluids, IV cefepime and vancomycin, blood and urine cultures pending Start sliding scale insulin and monitor blood sugars, serum osmole's pending A1c pending Trend lactic acid Strict I's and O's Obtain renal ultrasound Repeat BMP in the a.m. - Advance Directives Does patient have a Living Will: No Does patient have a Durable POA for Healthcare: No
--- NOTE | 2024-05-28 05:55 | RAD REPORT ---
EXAM DESCRIPTION: Site: Chest Single View RP: XR CHEST 1 VIEW CLINICAL HISTORY: 59 years Female; CHEST PAIN; Bed Name: 13 COMPARISON: None. FINDINGS: Lungs: No focal airspace disease. Mildly increased pulmonary vascularity accentuated by technique. No pleural effusion or pneumothorax. Mediastinum: Moderate to severe cardiomegaly accentuated by supine technique. Bones: Bony structures are unremarkable. IMPRESSION: 1. Moderate to severe cardiomegaly with mildly increased pulmonary vascularity accentuated by techn ique and overlying soft tissue. Electronically signed by: Josemanuel Crum MD 05/27/2024 11:40 PM CDT RP Workstation: [id number] Due to temporary technical issues with the PACS/[employer] reporting system, reports are being gorge d by the in-house radiologist without review as a courtesy to ensure prompt reporting the interpreting radiologist is fully responsible for the content of the report. Transcribed Date/Time: 05/28/2024 5:55 AM
[2024-05-28] MEDS: VANCOMYCIN 1 GM in NA CHLORIDE 0.9% 250 ML IVPB SCH (06:00)
--- NOTE | 2024-05-28 06:10 | RAD REPORT ---
EXAM: 1. CT scan of the CHEST without intravenous contrast. 2. CT scan of the ABDOMEN AND PELVIS without intravenous contrast CLINICAL DATA: 59 years Female CHEST PAIN. TECHNICAL DATA: CT imaging of the chest, abdomen and pelvis without intravenous contrast administration. Sagittal and coronal reconstructed images were performed. The CT study is performed according to ALARA (as low as reasonably achievable) or ALARA/IMAGE GENTLY, with automatic adjustment of mA and/or kV according to patient size. Performed on: 05/28/2024 at 2:15 AM Comparisons: CT abdomen and pelvis without contrast performed on 08/29/2022 FINDINGS: CHEST: Lungs: The lungs are well expanded and are clear. There are no pleural effusions. There is no pneumot horax. The central airways are patent. Heart: The heart is normal in size. There is no pericardial effusion. Mediastinum: The mediastinum is unremarkable. The mediastinal vessels are normal in caliber and con tour. There are minimal atherosclerotic calcifications along the thoracic aorta. Bones: No acute osseous abnormalities are identified. Soft tissues: No focal soft tissue abnormalities are identified. Lymphadenopathy: No pathologic hilar, mediastinal or axillary lymphadenopathy is identified. ABDOMEN/PELVIS: Liver: The liver is normal in size and configuration. No focal hepatic abnormalities are identified. There is decreased attenuation of the liver which can be seen with hepatic steatosis. Spleen: The spleen is normal in size, configuration and attenuation. Gallbladder and bile duct: The gallbladder is well-distended. There is increased attenuation within the gallbladder lumen which may be due to sludge. There is no biliary ductal dilatation. Pancreas: The pancreas is grossly normal in size and configuration. Adrenal Glands: The adrenal glands are normal in size and configuration. Kidneys: The kidneys are normal in size and configuration. There is no evidence of hydronephrosis. Th ere is no evidence of nephrolithiasis. No definite solid or cystic renal mass lesions are identified. Stomach: The stomach is grossly normal. There is no definite hiatal hernia. Bowel: The bowel gas pattern is non specific and non obstructive. There is scattered colonic divertic ulosis. Appendix: The appendix is normal. Free air: There is no evidence of free air. Free fluid: There is no evidence of free fluid. Vasculature: The aorta is normal in caliber and contour. The inferior vena cava is grossly unremarkab le. Lymphadenopathy: No pathologic lymphadenopathy is identified. Bladder: The bladder is partially distended and smooth in contour. Reproductive: The uterus is surgically absent. Bones: No acute osseous abnormalities are identified. There is chronic degenerative disc disease at L 4-L5 possibly related to chronic osteomyelitis. There is a prominent disc osteophyte complex at L2-L3. There appears to be left neural foraminal stenosis at L3-L4 and bilateral neural foraminal true nosis at L4-L5. Soft tissues: No focal soft tissue abnormalities are identified. IMPRESSION: CT CHEST: 1. No evidence of acute intrathoracic disease. CT SCAN ABDOMEN AND PELVIS: 1. Decreased attenuation of the liver which can be seen with hepatic steatosis. 2. Increased attenuation within the gallbladder lumen which may be due to sludge. 3. Scattered colonic diverticulosis. 4. Prior hysterectomy. 5. Chronic degenerative disc disease at L4-L5 possibly related to chronic osteomyelitis. There is a prominent disc osteophyte complex at L2-L3. There appears to be left neural foraminal stenosis at L3-L4 and bilateral neural foraminal stenosis at L4-L5. Electronically signed by: Sujahta Fabian DO 05/28/2024 02:53 AM [facility] Due to temporary technical issues with the PACS/[employer] reporting system, reports are being gorge d by the in-house radiologist without review as a courtesy to ensure prompt reporting the interpreting radiologist is fully responsible for the content of the report. Transcribed Date/Time: 05/28/2024 6:09 AM
[2024-05-28] MEDS: NA CHLORIDE 0.9% 1,000 ML IV SCH (06:25)
[2024-05-28] MEDS ORDERED: NA CHLORIDE 0.9% 250 ML ONE (06:29)
[2024-05-28] MEDS: VANCOMYCIN 750 MG in NA CHLORIDE 0.9% 150 ML IVPB ONE (06:34)
[2024-05-28] MEDS: INSULIN REGULAR (HUMAN) 100 UNIT/ML SQ SCH ×2 (07:30→16:09)
[2024-05-28] MEDS ORDERED: AMLODIPINE 5 MG TAB ONE (07:41)
[2024-05-28] MEDS ORDERED: CEFEPIME 1 GM/VIAL ONE (07:44)
[2024-05-28] MEDS: LEVOTHYROXINE SOD 0.05 MG TABLET PO SCH (08:02)
[2024-05-28] MEDS: AMLODIPINE 5 MG TAB PO SCH (08:02)
[2024-05-28] MEDS: CEFEPIME 1 GM in NA CHLORIDE 0.9% 100 ML IV SCH (08:45)
--- NOTE | 2024-05-28 11:46 | EKG ---
Test Date: 2024-05-27 Test Time: 22:34:57 C D Area Supervisor: MB MEASUREMENT RESULTS: Intervals: Rate: 88 [place]: QRSD: 84 QT: 438 QTc: 529 [place]: P: [place]: QRS: -33 T: 52 INTERPRETIVE STATEMENTS: artifacts, hard to interpret underlying rhythm Left axis deviation Septal infarct, age undetermined Prolonged QT Abnormal ECG No previous ECG available for comparison Electronically Signed On 05-28-24 11:45:11 CDT by Arnold Page
[2024-05-28] MEDS: MORPHINE 2 MG/ML SYR IV PRN (13:52)
--- NOTE | 2024-05-28 14:21 | P.PN ---
Subjective Date of Service: 05/28/24 Chief Complaint: Generalized weakness Physical Examination - Vital Signs Temperature: 98.5 F Blood Pressure: 123/56 Pulse: 88 Respirations: 17 Pulse Ox (%): 99 - Studies Laboratory Data (last 24 hrs) 05/28/24 05/27/24 05/27/24 01:27 22:35 22:35 WBC 14.50 H Hgb 12.0 Hct 37.9 Plt Count 294 PT 12.0 INR 1.06 Sodium 136 D Potassium 4.0 D BUN 31 H Creatinine 3.48 H Glucose 469 H* Magnesium Total Bilirubin AST ALT Alkaline Phosphatase Lipase 05/27/24 22:35 WBC Hgb Hct Plt Count PT INR Sodium 129 L Potassium 4.7 BUN 33 H Creatinine 3.94 H Glucose 631 H* Magnesium 2.4 Total Bilirubin 0.6 AST 49 H ALT 23 Alkaline Phosphatase 165 H Lipase 65 Assessment & Plan - Advance Directives Does patient have a Living Will: No Does patient have a Durable POA for Healthcare: No
--- NOTE | 2024-05-28 15:03 | P.PN ---
Date of Service: 05/28/24 pt seen on rounds this morning, in ER feeling better tolerating PO denies dysuria, no abd pain, no flank pain UA concerning for UTI vitals improving glucose still high, A1c high adjust insulin continue abx, f/u cultures continue IV fluids
[2024-05-28] MEDS: methocarbamoL 500 MG TAB PO SCH (20:45)
[2024-05-28] MEDS: ATORVASTATIN 10 MG TAB PO SCH (20:45)
[2024-05-28] MEDS: INSULIN GLARGINE 100 UNIT/ML SQ SCH (21:37)
[2024-05-29] MEDS: ONDANSETRON 4 MG/2 ML VIAL IV PRN (02:16)
[2024-05-29 06:01] LABS: Anion Gap 11.2 mEq/L (5.0-15.0); Magnesium 2.1 mg/dL (1.6-2.4); Potassium 4.2 mEq/L (3.5-5.1)
[2024-05-29 06:06] LABS: Absolute Basophils 0.1 K/uL (0-0.5); Absolute Eosinophils 0.2 K/uL (0-0.5); Absolute Lymphocytes (CBC) 2.3 K/uL (0.7-4.9); Absolute Monocytes 0.6 K/uL (0.1-1.3); Absolute Neutrophil 8.1 K/uL (1.8-8.0); Eosinophils % 1.6 % (0-4.4); Hematocrit 34.7 % (36.0-45.0); Hemoglobin 10.9 g/dL (12.0-15.0); Lymphocytes % 20.2 % (15.3-44.8); MCH 28.7 pg (27.0-35.0); MCHC 31.5 g/dL (32.0-36.0); MCV 91.1 fL (80-100); MPV 10.4 fL (7.6-11.3); Monocytes % 5.4 % (3.3-12.3); Neutrophils % 71.8 % (41.7-73.7); Platelets 183 thou/uL (152-406); RBC Red Blood Cell Count 3.81 M/uL (3.86-4.86); Red Cell Distribution Width 16.7 % (12.1-15.2)
[2024-05-29 06:35] VITALS: BMI 49.0
--- NOTE | 2024-05-29 07:44 | P.PN ---
Subjective Date of Service: 05/29/24 Chief Complaint: Generalized weakness Subjective: Improving Overall improving. States she feels very weak. She lives by herself. Denies any fevers overnight. Good urine output with pure wick. States she does have some pain at a baseline. Review of Systems 10-point ROS is otherwise unremarkable Physical Examination - Vital Signs Temperature: 98.2 F Blood Pressure: 117/56 Pulse: 79 Respirations: 16 Pulse Ox (%): 97 - Physical Exam General: Alert, In no apparent distress HEENT: Atraumatic, Normocephalic Neck: Supple, 2+ carotid pulse no bruit Respiratory: Clear to auscultation bilaterally Cardiovascular: No edema Capillary refill: <2 Seconds Gastrointestinal: Normal bowel sounds Musculoskeletal: No clubbing Integumentary: No rashes Neurological: Normal gait, Normal speech Lymphatics: No axilla or inguinal lymphadenopathy Assessment And Plan - Plan Severe sepsis HHNKS Acute kidney injury Pyelonephritis Leukocytosis Dehydration Lactic acidosis resolved Degenerative disc disease Clinical condition and WBC count improving Consult physical therapy Creatinine improving. Avoid nephrotoxins, Renal ultrasound pending Lactic acidosis resolved Pseudohyponatremia resolved Blood cultures with no growth to date, urine culture pending Continue sliding scale insulin A1c is greater than 14 DVT prophylaxis with SCDs
[2024-05-29] MEDS: methocarbamoL 500 MG TAB PO SCH (12:02)
[2024-05-29] MEDS: VANCOMYCIN 2 GM in NA CHLORIDE 0.9% 500 ML IVPB SCH (21:00)
--- NOTE | 2024-05-30 13:08 | RAD REPORT ---
EXAMINATION: US RENAL CLINICAL INDICATION: Acute renal injury TECHNIQUE: Real-time ultrasonography of the kidneys performed. COMPARISON: No prior exam. FINDINGS: Right kidney measures 10 cm with a normal echotexture. 8 mm right renal cyst. Left kidney measures 10 cm with normal echotexture. Mild renal cortical thinning. No hydronephrosis No gross abnormality bladder. IMPRESSION: Mild left renal cortical thinning may be secondary to chronic inflammation.
--- NOTE | 2024-05-30 15:00 | P.PN ---
Subjective Date of Service: 05/30/24 Chief Complaint: Urinary sepsis Subjective: Improving (Patient is improving doing well feeling better no new complaints wants to go home) Review of Systems Unremarkable Physical Examination - Vital Signs Temperature: 97.6 F Blood Pressure: 168/74 Pulse: 84 Respirations: 16 Pulse Ox (%): 96 - Physical Exam General: Alert, Oriented x3 Respiratory: Clear to auscultation bilaterally Cardiovascular: No edema, Regular rate/rhythm Gastrointestinal: Normal bowel sounds, Soft and benign, Non-distended Assessment And Plan - Current Problems (Diagnosis) (1) Urinary tract infection Current Visit: Yes Status: Acute Plan: Patient is 59 years of age admitted with urosepsis no acute changes noted on CT of the chest and the abdomen patient's white count is declining cultures are pending will reorder labs for today to check what her renal function possible discharge if there is a significant improvement urine culture is ordered white count is still declining will repeated tomorrow vital signs are stable blood pressure little elevated labs reviewed Qualifiers: Urinary tract infection type: acute cystitis
[2024-05-30 15:02] VITALS: O2SAT 96
[2024-05-31] MEDS ORDERED: ACETAMINOPHEN 500 MG TAB PO PRN (03:08)
[2024-05-31] MEDS: HYDROCODONE/APAP 5/325 MG TAB PO PRN (03:16)
[2024-05-31 07:30] LABS: Hematocrit 33.1 % (36.0-45.0); Hemoglobin 10.7 g/dL (12.0-15.0); MCH 29.8 pg (27.0-35.0); MCHC 32.3 g/dL (32.0-36.0); MCV 92.2 fL (80-100); MPV 9.6 fL (7.6-11.3); Platelets 228 thou/uL (152-406); RBC Red Blood Cell Count 3.59 M/uL (3.86-4.86); Red Cell Distribution Width 17.2 % (12.1-15.2)
[2024-05-31 08:48] VITALS: TEMP 97.6
--- NOTE | 2024-05-31 10:50 | P.DS ---
Admission Date: 05/28/24 Discharge Date: 05/31/24 Disposition: ROUTINE DISCHARGE Discharge Condition: FAIR Reason for Admission: Urinary sepsis - Problems (1) Urinary tract infection Current Visit: Yes Status: Acute Qualifiers: Urinary tract infection type: acute cystitis Brief History of Present Illness: Patient is 59 years of age admitted with sepsis Hospital Course: Patient was diagnosed with presumed urosepsis treated with IV antibiotics did well during the course of her stay no complications patient was in acute renal failure on admission her creatinine had decreased down to 1.91 which is at her baseline cultures so far have been negative urine cultures are pending patient was treated with IV cefepime white count is down to normal at the time of discharge alert oriented responsive cooperative no distress no shortness of breath no fever vital signs all stable chest clear cardiovascular system heart sounds normal Patient to be discharged in satisfactory condition he was sent home on some levofloxacin to follow-up 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 Vital Signs/Physical Exam: Temp Pulse Resp BP Pulse Ox 97.6 F 83 14 144/65 H 99 05/31/24 08:00 05/31/24 08:00 05/31/24 08:00 05/31/24 08:00 05/31/24 08:00 Laboratory Data at Discharge: WBC 10.80 thou/uL (4.3-10.9) 05/31/24 07:22 Hgb 10.7 g/dL (12.0-15.0) L 05/31/24 07:22 Hct 33.1 % (36.0-45.0) L 05/31/24 07:22 Plt Count 228 thou/uL (152-406) 05/31/24 07:22 PT 12.0 SECONDS (10-13.0) 05/27/24 22:35 INR 1.06 05/27/24 22:35 Sodium 139 mEq/L (136-145) 05/31/24 07:22 Potassium 4.0 mEq/L (3.5-5.1) 05/31/24 07:22 BUN 12 mg/dL (7-18) 05/31/24 07:22 Creatinine 1.91 mg/dL (0.55-1.02) H 05/31/24 07:22 Glucose 101 mg/dL (74-106) 05/31/24 07:22 Magnesium 2.1 mg/dL (1.6-2.4) 05/29/24 05:35 Total Bilirubin 0.6 mg/dL (0.2-1.0) 05/27/24 22:35 AST 49 U/L (15-37) H 05/27/24 22:35 ALT 23 U/L (13-56) 05/27/24 22:35 Alkaline Phosphatase 165 U/L (45-117) H 05/27/24 22:35 Lipase 65 U/L (13-75) 05/27/24 22:35 Home Medications: Citalopram Hydrobromide [Citalopram HBr] 40 mg PO DAILY 08/29/22 Glimepiride 4 mg PO BID 08/29/22 Levothyroxine Sodium 1 cap PO DAILY 08/29/22 Metformin HCl 1,000 mg PO BID 08/29/22 Pravastatin Sodium 80 mg PO BEDTIME 08/29/22 lisinopriL [Lisinopril] 1 tab PO DAILY 08/29/22 methocarbamoL [Methocarbamol] 500 mg PO BEDTIME PRN 08/29/22 Amlodipine [Norvasc*] 5 mg PO DAILY #30 tab 08/31/22 Pantoprazole [Protonix Tab*] 40 mg PO BID #60 tab 08/31/22 levoFLOXacin [Levaquin*] 500 mg PO DAILY 7 Days #7 tab 05/31/24 New Medications: levoFLOXacin [Levaquin*] 500 mg PO DAILY 7 Days #7 tab Followup: Paul Wallace MD [Primary Care Provider] -
[2024-05-31 12:04] VITALS: BP 138/68
== END 2024-05-31 14:32 | disposition home or self-care (01) | DRG 871 ==
LOC: ER 22:12 → ERHOLD 05-28 04:56 → 2ND 05-28 12:50
PROVIDERS: ADMIT Family Medicine; ATTEND Internal Medicine Sleep Medicine
DX: A41.9 Sepsis, unspecified organism (principal); E11.00 Type 2 diabetes mellitus with hyperosmolarity without nonketotic hyperglycemic-hyperosmolar coma (NKHHC); Z68.42 Body mass index [BMI] 45.0-49.9, adult; N17.9 Acute kidney failure, unspecified; N30.00 Acute cystitis without hematuria; R65.20 Severe sepsis without septic shock; E66.9 Obesity, unspecified; E86.0 Dehydration; I12.9 Hypertensive chronic kidney disease with stage 1 through stage 4 chronic kidney disease, or unspecified chronic kidney disease; N18.30 Chronic kidney disease, stage 3 unspecified; E11.22 Type 2 diabetes mellitus with diabetic chronic kidney disease; Z88.8 Allergy status to other drugs, medicaments and biological substances; Z79.85 Long-term (current) use of injectable non-insulin antidiabetic drugs; Z79.84 Long term (current) use of oral hypoglycemic drugs; Z79.890 Hormone replacement therapy; Z79.899 Other long term (current) drug therapy; Z90.710 Acquired absence of both cervix and uterus
CPT/HCPCS: 36415; 71045; 71250; 74176; 76770; 80048; 80076; 80202; 81003; 82010; 82550; 82947; 83036; 83605; 83690; 83735; 83880; 83930; 84439; 84443; 84484; 85025; 85027; 85610; 86140; 87040; 87077; 87086; 87088; 87186; 93005; 96361; 96365; 96367; 96375; 99285; J0692; J0696; J1815; J2270; J2405; J2470; J2765; J2800; J3370; J7030; J7040; J7050; Q0169